=== PATIENT | female | born 1940 | race Caucasian/White ===

== ENCOUNTER → 2016-09-01 | Outpatient (REF) | payer MEDICARE, OTHER ==
[~2016-09-01] MED LIST: MULTIPLE PO; MULTIVIT PO; amlodipine PO; calcium PO; cephalexin PO; levoxyl PO; lisinopril PO; tums PO; tylenol PM PO; vicodin PO; vitamin D PO
[2016-09-01 11:47] LABS: CREATININE FOR GFR 1.08 MG/DL (0.55-1.02); GLOMERULAR FILTRATION RATE 52.7 (>39)
== END ==
LOC: M LABDRAW1 11:13
PROVIDERS: ATTEND Physician Assistant
DX: M65.811 Other synovitis and tenosynovitis, right shoulder (principal)

== ENCOUNTER → 2016-09-15 | Outpatient (CLI) | payer MEDICARE, OTHER ==
--- NOTE | 2016-09-15 13:07 | REPMRS ---
Patient History The patient states she has not had a clinical breast exam in over a year. Patient is postmenopausal. Family history of colorectal cancer in niece at age 45 and ovarian cancer in niece at age 42. Took hormonal contraceptives for 10 months. Digital Woman Screen Mammo: September 15, 2016 - Exam #: [id number] Bilateral CC and MLO view(s) were taken. Technologist: Jenae Boswell Technologist Prior study comparison: December 13, 2014, digital woman screen mammo performed at [facility]. July 18, 2013, bilateral bilat screen digital mammo, performed at [facility] ([facility]). January 06, 2012, bilateral bilat screen digital mammo, performed at [facility] ([facility]). FINDINGS: There are scattered fibroglandular densities. There is a moderate amount of residual fibroglandular tissue which is fairly symmetric. There is no interval development of dominant mass, architectural distortion, or clustered microcalcification typical of malignancy. There has been no change in the appearance of the mammogram from the prior studies. ASSESSMENT: BI-RADS/ACR category 1 mammogram. Negative. Recommendation Routine screening mammogram of both breasts in 1 year (for women over age 40). This mammogram was interpreted with the aid of an FDA-approved computer-aided dectection system. Electronically Signed By: Elliot Murguia MD 09/15/16 [id number]
== END ==
LOC: M WHC 11:03
PROVIDERS: ATTEND Family Medicine
DX: Z12.31 Encounter for screening mammogram for malignant neoplasm of breast (principal); Z78.0 Asymptomatic menopausal state; Z92.0 Personal history of contraception; Z85.43 Personal history of malignant neoplasm of ovary

== ENCOUNTER → 2016-09-25 | Outpatient (REF) | payer MEDICARE, OTHER ==
[~2016-09-25] MED LIST changes: +ALBU17IN INH; +FISH5CAP PO; +NASA0.0517; +VITA100L PO
[2016-09-25 11:13] LABS: ALBUMIN 3.5 GM/DL (3.2-5.2); ALBUMIN/GLOBULIN RATIO 1.13 (1.00-1.93); ALKALINE PHOSPHATASE 91 U/L (45-117); ALT/SGPT 17 U/L (12-78); ANION GAP 7 MEQ/L (8-16); AST/SGOT 10 U/L (15-37); BILIRUBIN,TOTAL 0.5 MG/DL (0.2-1.0); BLOOD UREA NITROGEN 20 MG/DL (7-18); CARBON DIOXIDE LEVEL 29 MEQ/L (21-32); CHLORIDE LEVEL 107 MEQ/L (98-107); CHOLESTEROL LEVEL 254 MG/DL (<200); CREATININE FOR GFR 0.91 MG/DL (0.55-1.02); GLOMERULAR FILTRATION RATE > 60.0 (>39); GLUCOSE, FASTING 91 MG/DL (83-110); POTASSIUM SERUM 4.1 MEQ/L (3.5-5.1); SODIUM LEVEL 143 MEQ/L (136-145); TOTAL PROTEIN 6.6 GM/DL (6.4-8.2); TRIGLYCERIDES LEVEL 92 MG/DL (<150)
== END ==
LOC: M LABDRAW1 08:16
PROVIDERS: ATTEND Family Medicine
DX: E78.2 Mixed hyperlipidemia (principal); E03.9 Hypothyroidism, unspecified

== ENCOUNTER 2016-10-08 17:06 | Emergency (ER) | payer MEDICARE, OTHER ==
[~2016-10-08] VITALS: Ht 154.9 cm; Wt 59.1 kg
[~2016-10-08 17:06] MED LIST changes: -ALBU17IN INH; -FISH5CAP PO; -NASA0.0517; -VITA100L PO
[2016-10-08] MEDS ORDERED: TETANUS/DIPHTHERIA TOX ADSORB ADULT 0.5ML SYR/VIAL (90714) IM ONE (17:30)
[2016-10-08] MEDS ORDERED: VITA100L PO (17:39)
[2016-10-08] MEDS ORDERED: FISH5CAP PO (17:39)
[2016-10-08] MEDS ORDERED: NASA0.0517 (17:39)
[2016-10-08] MEDS ORDERED: ALBU17IN INH (17:39)
[2016-10-08 18:30] VITALS: BP 151/87
--- NOTE | 2016-10-08 18:58 | REP ---
MAXILLOFACIAL CT WITHOUT CONTRAST: HISTORY: Trauma. Minimal mucosal thickening is present in the right ethmoid sinus. The remaining sinuses are clear. The ostiomeatal units are patent. The middle and inferior nasal turbinates are partially paradoxical. There is timmy bullosa of the right middle nasal turbinate. There is mild deviation of the nasal septum to the left. A spur is present arising from the left side of the nasal septum. The spur abuts the left inferior nasal turbinate. The cribriform plate, medial zimmer of the orbits and optic canals are intact. The carotid canals form a segment of the posterolateral zimmer of the sphenoid sinus. Calcification is present in the left tonsil. This is secondary to previous inflammatory disease. There is no fracture. IMPRESSION: Sinus mucosal thickening as described above. Signed by Juan Antonio Ruelas MD 10/09/2016 08:23 A
--- NOTE | 2016-10-08 19:05 | REP ---
CT CERVICAL SPINE WITHOUT CONTRAST: HISTORY: Trauma. There is no acute fracture or subluxation. Disc bulges with associated osteophyte formation are present at the C4-5 through C6-7 levels. There is minimal narrowing of the spinal canal. Uncinate process and/or facet hypertrophy are present at the C2-3 through C7-T1 levels. These findings produce minimal to moderate narrowing of the neural foramina. The C4-5 through C6-7 intervertebral discs are decreased in height consistent with disc degeneration. Calcification is present in the left tonsil. This is secondary to previous inflammatory disease. IMPRESSION: 1. There is no acute fracture or subluxation. 2. There is cervical spondylosis at the C2-3 through C7-T1 levels. Signed by Juan Antonio Ruelas MD 10/09/2016 08:24 A
--- NOTE | 2016-10-08 19:07 | REP ---
RIGHT HAND, FOUR VIEWS: HISTORY: Trauma. There is a nondisplaced fracture of the base of the 5th metacarpal. There is narrowing of the carpal metacarpal, intermediate and distal interphalangeal joint spaces. The greater multangular is not seen. Osteophytes are present on the base of the first metacarpal and at the distal interphalangeal joints of the first through 5th digits. The bony structure is osteopenic. IMPRESSION: Fracture of the base of the 5th metacarpal. Signed by Juan Antonio Ruelas MD 10/09/2016 08:24 A
--- NOTE | 2016-10-08 19:31 | REP ---
CT HEAD WITHOUT CONTRAST: HISTORY: Trauma. Areas of decreased attentuation are present in the periventricular white matter. This represents small vessel ischemic disease. There is no intraparenchymal hemorrhage, mass or midline shift. The ventricular system and cortical sulci are dilated consistent with minimal volume loss. There is no extracerebral collection. There is no fracture. The visualized sinuses are clear. IMPRESSION 1. Small vessel ischemic disease. 2. Minimal volume loss. Signed by Juan Antonio Ruelas MD 10/09/2016 08:23 A
== END 2016-10-08 20:04 | disposition home or self-care (01) ==
LOC: M ED 17:06
DX: S00.81XA Abrasion of other part of head, initial encounter (principal); S62.306A Unspecified fracture of fifth metacarpal bone, right hand, initial encounter for closed fracture; I10 Essential (primary) hypertension; M06.9 Rheumatoid arthritis, unspecified; E78.5 Hyperlipidemia, unspecified; W18.30XA Fall on same level, unspecified, initial encounter; Y92.410 Unspecified street and highway as the place of occurrence of the external cause; Y99.9 Unspecified external cause status; Y93.9 Activity, unspecified; Z23 Encounter for immunization; Z79.899 Other long term (current) drug therapy; Z88.0 Allergy status to penicillin; Z88.1 Allergy status to other antibiotic agents; Z88.6 Allergy status to analgesic agent; Z88.8 Allergy status to other drugs, medicaments and biological substances

== ENCOUNTER 2017-03-09 08:51 | Inpatient (IN) | payer MEDICARE, OTHER ==
[~2017-03-09] VITALS: Ht 154.9 cm; Wt 61.7 kg
[~2017-03-09 08:51] MED LIST changes: +ALBU17IN INH; +FISH5CAP PO; +NASA0.0517; +VITA100L PO
[2017-03-09] MEDS ORDERED: SULF1TAB72 PO (09:09)
[2017-03-09] MEDS ORDERED: ONDANSETRON 4MG/2ML VIAL (J2405) IV ONE (09:30)
[2017-03-09 09:35] LABS: BASO # 0.1 10^3/uL (0.0-0.2); BASO % 0.9 % (0.0-1.0); EOS # 0.1 10^3/uL (0.0-0.50); EOS % 0.7 % (0.0-3.0); IMMATURE GRANULOCYTE % 0.4 % (0-0); LYMPH % 25.3 % (24.0-44.0); MEAN CORPUSCULAR HEMOGLOBIN 29.5 pg (27.0-33.0); MEAN CORPUSCULAR VOLUME 89.5 fl (80.0-96.0); MONO # 0.6 10^3/uL (0.0-0.8); MONO % 7.4 % (0.0-5.0); NEUTROPHILS # 5.2 10^3/uL (1.8-7.7); NEUTROPHILS % 65.3 % (36.0-66.0); PLATELET COUNT, AUTOMATED 366 10^3/uL (150-450); RED CELL DISTRIBUTION WIDTH 13.4 % (11.5-14.5)
--- NOTE | 2017-03-09 09:54 | REP ---
PORTABLE CHEST: AP portable view of the chest is performed. There is mild bibasilar fibroatelectatic change without evidence of acute infiltrate. The heart is normal in size. Mediastinal silhouette is unchanged. IMPRESSION: Mildly chronic findings without evidence of acute infiltrate. Signed by Milan Tompkins MD 03/09/2017 05:22 P
[2017-03-09 10:08] LABS: CALCIUM LEVEL 9.2 MG/DL (8.8-10.2); CREATININE FOR GFR 1.86 MG/DL (0.55-1.02); FREE T4 1.13 NG/DL (0.76-1.46); MAGNESIUM LEVEL 2.2 MG/DL (1.8-2.4); POTASSIUM SERUM 4.7 MEQ/L (3.5-5.1)
--- NOTE | 2017-03-09 10:33 | REP ---
CT BRAIN WITHOUT IV CONTRAST: CT brain is performed without IV contrast. COMPARISON: 10/08/2016 There is mild atrophy. There is no midline shift. There are bilateral basal ganglia calcifications again seen, unchanged. There is no acute hemorrhage or extra-axial fluid collection. There is no evidence of mass or mass effect. Visualized paranasal sinuses and mastoid air cells are clear. IMPRESSION: No evidence of acute intracranial hemorrhage or mass. Bilateral basal ganglia calcifications. Mild atrophy. No change since prior study of 10/08/2016. Signed by Milan Tompkins MD 03/09/2017 05:23 P
[2017-03-09 11:28] LABS: ALBUMIN 4.1 GM/DL (3.2-5.2); ALBUMIN/GLOBULIN RATIO 1.32 (1.00-1.93); BILIRUBIN,DIRECT 0.1 MG/DL (0.0-0.2); BILIRUBIN,TOTAL 0.4 MG/DL (0.2-1.0); TOTAL PROTEIN 7.2 GM/DL (6.4-8.2)
[2017-03-09] MEDS ORDERED: PANTOPRAZOLE 40MG INJ (PROTONIX) (C9113) IV ONE (14:30)
[2017-03-09] MEDS ORDERED: ONDANSETRON 4MG/2ML VIAL (J2405) IV PRN (16:30)
[2017-03-09] MEDS ORDERED: VITA100066 PO (16:44)
[2017-03-09] MEDS ORDERED: LEVO75TA34 PO (16:44)
[2017-03-09] MEDS ORDERED: AMLO5TAB2 PO (16:44)
[2017-03-09] MEDS ORDERED: CALC600T31 PO (16:44)
[2017-03-09] MEDS ORDERED: BACT800T5 PO (16:44)
[2017-03-09] MEDS ORDERED: LISI10TA4 PO (16:44)
[2017-03-09] MEDS ORDERED: B-1210009 PO (16:44)
[2017-03-09] MEDS ORDERED: FLON1SPR (16:44)
[2017-03-09 17:30] VITALS: BP 113/59
[2017-03-09 18:01] VITALS: BP 147/73
[2017-03-09 18:04] VITALS: BP_SYST 116; BP_SYST 119; BP_DIAS 58; BP_DIAS 62
[2017-03-09] MEDS: NS 1,000 ML IV SCH (18:25)
--- NOTE | 2017-03-09 18:41 | ECGEPIP ---
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
--- NOTE | 2017-03-09 18:41 | ECGEPIP ---
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
--- NOTE | 2017-03-09 18:46 | ECGEPIP ---
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
[2017-03-09] MEDS ORDERED: ALBUTEROL 90 MCG/ACT 8GM HFA INHALER INH PRN (19:30)
[2017-03-09] MEDS ORDERED: FLUTICASONE PROP 0.05% NASAL SPRAY 16 GM (FLONASE) PRN (19:30)
--- NOTE | 2017-03-09 19:33 | HPEPDOC ---
[facility] Medical History & Physical History and Physical Primary care provider: Dr. Sousa Date of Admission: 03/09/2017 Attending: Dr. Sylvia Ayala CHIEF COMPLAINT: Near syncopal episode HISTORY OF PRESENT ILLNESS: Ms. Luna is a 77-year-old female who presents to the emergency department because she had an episode of loss of vision. This was only momentary in nature, however it did scare her therefore she presented to emergency department for further evaluation. She states that she had an episode of facial cellulitis approximately 2 weeks ago for which she was given 10 days of Bactrim 1 tablet twice a day from urgent care. At the end of 10 days she felt that this was not completely resolved, therefore she called her primary care provider who because of her many allergies prescribed her Bactrim again, although this time it was 2 tablets twice a day (doubled the dose) and she has been on this increased dose for the past 4 days. She reports that she has been nauseous for the past 3 days, and she is been eating less and less over the past week. Yesterday she only ate for pieces of toast all day, today she has had nothing to eat. She has however been taking all of her medications appropriately, including her antihypertensives. When she went to take her Synthroid first thing this morning when she tilted her head back she had a sudden loss of vision. This was only momentary and then her vision came back. She was standing in the kitchen, she did not lose consciousness, she did not fall. After this however, she did feel extremely weak, and began to sweat, and she felt lightheaded therefore she sat down. All of these symptoms combined were enough to scare her, therefore she called her son and was brought to the emergency department. ALLERGIES: Acetaminophen Ciprofloxacin Erythromycin Ibuprofen Naproxen Penicillins Penicillin cross reactors Quinolones Tetracycline CODE STATUS: Full code PAST MEDICAL HISTORY: Hypertension Hypothyroidism Arthritis Seasonal allergies PAST SURGICAL HISTORY: Appendectomy Ovarian cystectomy Bilateral carpal tunnel surgery Back surgery Surgical procedure for bladder prolapse and hysterectomy SOCIAL HISTORY: She lives at home alone, she does have a Vietnamese Esposito. She quit smoking approximately 10 years ago. She does not drink alcohol. She does not use recreational drugs. FAMILY HISTORY: Mother had valvular problems due to Fen/Phen use. Mother also had skin cancer. She had a brother who had an VT in his 40s, however he heavily smokes and drinks. REVIEW OF SYSTEMS: Constitutional: Patient denies fevers, chills, night sweats, recent weight gain/ loss. HEENT: She did have an episode of transient visual loss as described in the HPI. Denies postnasal drip, epistaxis, sore throat, difficulty chewing or swallowing food. She is uncertain as to whether the cellulitis of her face has resolved, and points to a bump on her nose indicating that this is what is still bothering her. Cardiovascular: Patient denies chest discomfort/pain, palpitations, exertional dyspnea, orthopnea, edema of the extremities, claudication. Respiratory: Patient denies dyspnea, wheezing, cough, hemoptysis, sputum production. Gastrointestinal: She has been nauseated for the past 3 days or so. She denies vomiting. She did have one episode of diarrhea yesterday, however she had been constipated for the previous few days and took one Dulcolax which is what caused her diarrhea. She has not had a bowel movement today PHYSICAL EXAMINATION: General: Awake, alert, oriented. She is in no acute distress. HEENT: Head normocephalic atraumatic, conjunctiva are pink, sclera are nonicteric. Hearing is grossly intact to conversation. I do not see any evidence of cellulitis in her face, the bumps that she indicates appears to be part of her nasal bridge, I suspect that she may have fractured her nasal bones when she fell approximately 6 months ago. Respiratory: Clear to auscultation bilaterally with no wheezes, rales, or rhonchi. Cardiovascular: Regular rate and rhythm, with no rubs, gallops, or murmur. Abdomen: Soft, nontender, nondistended, no hepatosplenomegaly appreciated. Bowel sounds present. Extremities: 2+ pulses in the radial and dorsalis pedis bilaterally. No evidence of clubbing or cyanosis. ELECTROCARDIOGRAM: Sinus rhythm. 3 EKGs were obtained in the emergency department, and there is no interval change since 2011 IMAGING: CT of the head and chest x-ray were unremarkable ASSESSMENT: 1. Acute kidney injury 2. Prerenal azotemia 3. Recent antibiotic use, Bactrim 4. Hypertension 5. Hypothyroidism 6. DVT prophylaxis with teds PLAN: Her nausea, upset stomach, poor oral intake, acute kidney injury, and subsequent hypovolemia are all likely secondary to her prolonged use of Bactrim , especially at the higher dose. We will stop her antibiotics at this time given that she is afebrile, does not have leukocytosis, and there is no residual evidence of cellulitis in her face. We will also start IV fluids. She is already been on telemetry since this morning, therefore tomorrow morning will conclude approximately 24 hours of being on telemetry (up to this point she has showed no evidence of arrhythmias), and she may be reevaluated at that time. I suspect that if her acute kidney injury resolves, and she is feeling better, she may be a candidate for going home. My preceptor for this patient encounter was physically present in the building during the encounter and was fully available. As needed, all aspects of the patient interview, examination, medical decision making process, and medical care plan development were reviewed and approved by the preceptor. Preceptor is aware and concurs with the plan as stated in the body of this note and will attest to such by his/her cosignature. Vital Signs Vital Signs Date Time Temp Pulse Resp B/P (MAP) Pulse Ox O2 Delivery O2 Flow Rate FiO2 03/09/17 18:04 101 116/62 (80) 106 119/58 (78) 03/09/17 18:01 86 96 Room Air 03/09/17 17:32 97.9 Laboratory Data Labs 24H Laboratory Tests 2 03/09/17 09:27: Immature Granulocyte % (Auto) 0.4H, White Blood Count 8.0, Red Blood Count 4.74 , Hemoglobin 14.0, Hematocrit 42.4, Mean Corpuscular Volume 89.5, Mean Corpuscular Hemoglobin 29.5, Mean Corpuscular Hemoglobin Concent 33.0, Red Cell Distribution Width 13.4, Platelet Count 366, Neutrophils (%) (Auto) 65.3, Lymphocytes (%) (Auto) 25.3, Monocytes (%) (Auto) 7.4H, Eosinophils (%) (Auto) 0.7, Basophils (%) (Auto) 0.9, Neutrophils # (Auto) 5.2, Lymphocytes # (Auto) 2.0, Monocytes # (Auto) 0.6, Eosinophils # (Auto) 0.1, Basophils # (Auto) 0.1, Immature Granulocyte # (Auto) 0.0, Nucleated Red Blood Cells % (auto) 0.0, Anion Gap 11, Glomerular Filtration Rate 28.0L, Blood Urea Nitrogen 32H, Creatinine 1.86H, Sodium Level 134L, Potassium Level 4.7, Chloride Level 99, Carbon Dioxide Level 24, Calcium Level 9.2, Magnesium Level 2.2, Total Creatine Kinase 104, Creatine Kinase MB 2.9, Creatine Kinase MB Relative Index 2.78, Troponin I < 0.02, Thyroid Stimulating Hormone (TSH) 1.830, Free Thyroxine 1.13 03/09/17 09:33: Bedside Glucose (Misc Panel) 87 03/09/17 11:00: Aspartate Amino Transf (AST/SGOT) 18, Alanine Aminotransferase (ALT/SGPT) 23, Alkaline Phosphatase 79, Total Bilirubin 0.4, Direct Bilirubin 0.1, Total Protein 7.2, Albumin 4.1, Albumin/Globulin Ratio 1.32, Lipase 171 03/09/17 11:37: Total Creatine Kinase 101, Creatine Kinase MB 2.7, Creatine Kinase MB Relative Index 2.67, Troponin I < 0.02 03/09/17 15:17: Total Creatine Kinase 102, Creatine Kinase MB 2.8, Creatine Kinase MB Relative Index 2.74, Troponin I < 0.02 CBC/BMP Laboratory Tests 03/09/17 09:27 Red Blood Count 4.74, Mean Corpuscular Volume 89.5, Mean Corpuscular Hemoglobin 29.5, Mean Corpuscular Hemoglobin Concent 33.0, Red Cell Distribution Width 13.4 , Neutrophils (%) (Auto) 65.3, Lymphocytes (%) (Auto) 25.3, Monocytes (%) (Auto ) 7.4 H, Eosinophils (%) (Auto) 0.7, Basophils (%) (Auto) 0.9, Neutrophils # ( Auto) 5.2, Lymphocytes # (Auto) 2.0, Monocytes # (Auto) 0.6, Eosinophils # (Auto ) 0.1, Basophils # (Auto) 0.1, Calcium Level 9.2 Microbiology Microbiology 03/09/17 Influenza Virus Type A Antigen - Final, Complete 03/09/17 Influenza Virus Type B Antigen - Final, Complete Home Medications Scheduled Amlodipine Besylate (Amlodipine Besylate) 5 Mg Tab, 5 MG PO QHS Calcium (Calcium) 600 Mg Tab, 600 MG PO DAILY Cholecalciferol (Vitamin D) 1,000 Unit Tab, 1,000 UNIT PO DAILY Cyanocobalamin (B-12) 1,000 Mcg Tab, 1,000 MCG PO DAILY Levothyroxine Sodium (Levoxyl) 75 Mcg Tab, 75 MCG PO DAILY Lisinopril (Lisinopril) 10 Mg Tab, 10 MG PO QHS Trimethoprim/Sulfamethoxazole (Bactrim Ds 800-160 mg) 1 Tab Tab, 1 TAB PO BID FILLED 03/03/17 FOR 10 DAYS Scheduled PRN (Flonase Allergy Relief) 50 Mcg/Act Spr, 2 SPRAYS NA DAILY PRN for ALLERGIES Albuterol Sulfate (Ventolin Hfa) 200 Puff/8 Gm Aers, 2 PUFF INH Q4H PRN for SHORTNESS OF BREATH Allergies Coded Allergies: Ciprofloxacin (Verified Allergy, Intermediate, hives, 03/09/17) Erythromycin (Verified Allergy, Intermediate, HIVES, 06/24/12) Ibuprofen (Verified Allergy, Intermediate, HIVES, 06/24/12) Penicillins (Verified Allergy, Intermediate, HIVES, 06/24/12) Penicillins Cross Reactors (Verified Allergy, Intermediate, HIVES, 06/24/12) Tetracycline (Verified Allergy, Intermediate, HIVES, 06/24/12) Acetaminophen (Verified Allergy, Mild, hives, 10/08/16) Naproxen (Verified Allergy, Mild, hives, 10/08/16) Quinolones (Verified Adverse Reaction, Intermediate, MUSCLE PAIN, 06/24/12) HIWOT GARZA DO Mar 09, 2017 19:33
[2017-03-09 20:00] VITALS: BP 118/55
[2017-03-09] MEDS: amLODIPine 5 MG TAB PO SCH (20:30)
[2017-03-09] MEDS: HEPARIN SOD (PORCINE) 5000 UNITS/ML VIAL SC SCH (20:31)
[2017-03-09] MEDS ORDERED: LISINOPRIL 10 MG TAB PO SCH (21:00)
[2017-03-09 23:59] VITALS: BP 95/67
[2017-03-10] VITALS (8 sets, daily range): BP systolic 108–140; BP diastolic 56–80
[2017-03-10] MEDS: NS 1,000 ML IV SCH ×3 (03:42→21:05)
[2017-03-10 05:35] LABS: MEAN CORPUSCULAR HEMOGLOBIN 29.7 pg (27.0-33.0); MEAN CORPUSCULAR HGB CONC 33.4 g/dl (32.0-36.5); MEAN CORPUSCULAR VOLUME 88.9 fl (80.0-96.0); PLATELET COUNT, AUTOMATED 320 10^3/uL (150-450); RED CELL DISTRIBUTION WIDTH 13.3 % (11.5-14.5); WHITE BLOOD COUNT 5.8 10^3/uL (4.0-10.0)
[2017-03-10 05:48] LABS: CALCIUM LEVEL 8.1 MG/DL (8.8-10.2); CREATININE FOR GFR 1.5 MG/DL (0.55-1.02); GLOMERULAR FILTRATION RATE 35.9 (>39)
[2017-03-10 05:51] LABS: POTASSIUM SERUM 5.5 MEQ/L (3.5-5.1)
[2017-03-10] MEDS: LEVOTHYROXINE 75MCG TABLET (0.075MG) PO SCH (06:00)
[2017-03-10] MEDS: PANTOPRAZOLE 40MG TAB (PROTONIX) PO SCH (09:02)
[2017-03-10] MEDS: CYANOCOBALAMIN 500 MCG TAB PO SCH (09:02)
[2017-03-10] MEDS: HEPARIN SOD (PORCINE) 5000 UNITS/ML VIAL SC SCH ×2 (09:02→21:06)
[2017-03-10] MEDS: VITAMIN D 1,000 INTERNATIONAL UNITS TABLET PO SCH (09:02)
[2017-03-10 12:52] LABS: CALCIUM LEVEL 8.6 MG/DL (8.8-10.2); CREATININE FOR GFR 1.45 MG/DL (0.55-1.02); GLOMERULAR FILTRATION RATE 37.4 (>39); POTASSIUM SERUM 4.5 MEQ/L (3.5-5.1)
--- NOTE | 2017-03-10 19:48 | IPNPDOC ---
Text Note Date of Service The patient was seen on 03/10/17. NOTE Hospitalist Progress Note Subjective: The patient reports that she is feeling significantly better this morning, however her orthostatic vital signs still positive, and she does get a little lightheaded if she moves too quickly. Otherwise, she was able to eat her breakfast, and has no other complaints. The remainder of her review of systems is negative. Objective: General: Awake, alert, oriented 3. She is sitting upright in the bed. She is not in any acute distress. HEENT: Head normocephalic, atraumatic, sclera are nonicteric. Hearing is grossly intact to conversation. Respiratory: Clear to auscultation bilaterally with no wheezes, rales, or rhonchi. Cardiovascular: Regular rate and rhythm, with no rubs, gallops, or murmur. Abdomen: Soft, nontender, nondistended, no hepatosplenomegaly appreciated. Bowel sounds present. Extremities: 2+ pulses in the radial and dorsalis pedis bilaterally. No evidence of clubbing or cyanosis. Assessment: 1. Acute kidney injury 2. Prerenal azotemia 3. Recent antibiotic use, Bactrim 4. Hypertension 5. Hypothyroidism 6. DVT prophylaxis with teds Plan: She has now begun to put out more urine this morning, this was not recorded in her I's & O's because she missed a hat. Her creatinine has not improved as much as one would hope, therefore we will continue to rehydrate her and keep her here one additional day just to ensure that her renal function is sufficiently improved prior to discharge. My preceptor for this patient encounter was physically present in the building during the encounter and was fully available. As needed, all aspects of the patient interview, examination, medical decision making process, and medical care plan development were reviewed and approved by the preceptor. Preceptor is aware and concurs with the plan as stated in the body of this note and will attest to such by his/her cosignature. Attending Note: I have independently examined this patient and all aspects of the exam and treatment decisions have been discussed with the resident. A member of the hospitalist staff will continue to follow this patient through discharge. VS,Fishbone, I+O VS, Fishbone, I+O Laboratory Tests 03/10/17 05:19 Red Blood Count 4.24, Mean Corpuscular Volume 88.9, Mean Corpuscular Hemoglobin 29.7, Mean Corpuscular Hemoglobin Concent 33.4, Red Cell Distribution Width 13.3 , Calcium Level 8.1 L 03/10/17 12:06 Calcium Level 8.6 L Vital Signs Date Time Temp Pulse Resp B/P (MAP) Pulse Ox O2 Delivery O2 Flow Rate FiO2 03/10/17 16:00 75 130/69 (89) 76 140/67 (91) 70 125/65 (85) 03/10/17 16:00 99.1 18 96 Room Air I&O- Last 24 Hours up to 6 AM 03/10/17 06:00 Intake Total 1420 ml Output Total 500 ml Balance 920 ml HIWOT GARZA DO Mar 10, 2017 19:48 THIAGO MCQUEEN Mar 13, 2017 13:45
[2017-03-10] MEDS: amLODIPine 5 MG TAB PO SCH (21:00)
[2017-03-11 04:00] VITALS: BP_SYST 121; BP_SYST 131; BP_DIAS 59; BP_DIAS 61; BP_DIAS 68
[2017-03-11 05:26] LABS: MEAN CORPUSCULAR HEMOGLOBIN 29.4 pg (27.0-33.0); MEAN CORPUSCULAR HGB CONC 32.4 g/dl (32.0-36.5); MEAN CORPUSCULAR VOLUME 90.8 fl (80.0-96.0); PLATELET COUNT, AUTOMATED 291 10^3/uL (150-450); RED CELL DISTRIBUTION WIDTH 13.2 % (11.5-14.5); WHITE BLOOD COUNT 6.5 10^3/uL (4.0-10.0)
[2017-03-11] MEDS: LEVOTHYROXINE 75MCG TABLET (0.075MG) PO SCH (05:39)
[2017-03-11 05:46] LABS: ANION GAP 7 MEQ/L (8-16); BLOOD UREA NITROGEN 22 MG/DL (7-18); CALCIUM LEVEL 7.9 MG/DL (8.8-10.2); CARBON DIOXIDE LEVEL 24 MEQ/L (21-32); CHLORIDE LEVEL 113 MEQ/L (98-107); CREATININE FOR GFR 0.94 MG/DL (0.55-1.02); GLOMERULAR FILTRATION RATE > 60.0 (>39); GLUCOSE, FASTING 92 MG/DL (83-110); POTASSIUM SERUM 4.7 MEQ/L (3.5-5.1); SODIUM LEVEL 144 MEQ/L (136-145)
[2017-03-11] MEDS: NS 1,000 ML IV SCH (06:50)
[2017-03-11 08:04] VITALS: BP 139/64
[2017-03-11] MEDS: PANTOPRAZOLE 40MG TAB (PROTONIX) PO SCH (08:41)
[2017-03-11] MEDS: CYANOCOBALAMIN 500 MCG TAB PO SCH (08:41)
[2017-03-11] MEDS: VITAMIN D 1,000 INTERNATIONAL UNITS TABLET PO SCH (08:41)
[2017-03-11] MEDS: HEPARIN SOD (PORCINE) 5000 UNITS/ML VIAL SC SCH (08:42)
--- NOTE | 2017-03-11 09:40 | DS.PDOC ---
Discharge Summary General Date of Admission 03/09/2017 Date of Discharge 03/11/2017 Discharge Summary PRIMARY CARE PHYSICIAN: Dr. Sousa ATTENDING AT TIME OF DISCHARGE: Dr. Mcqueen DISCHARGE DIAGNOS(E)S: 1. Acute kidney injury 2. Prerenal azotemia 3. Recent antibiotic use, Bactrim 4. Hypertension 5. Hypothyroidism HPI & HOSPITAL COURSE: Ms. Luna is a 77-year-old female who presented to the emergency department after having what could be described as a near syncopal episode. She had been taking Bactrim for almost 2 weeks for what sounds like a facial cellulitis, she had been experiencing nausea, decreased oral intake, dehydration, and all of this combined cause acute kidney injury. Her only treatment consisted of discontinuing the Bactrim and starting her on IV normal saline. Today the day of discharge she is feeling significantly better, creatinine has returned to normal, and she does appear to be stable for discharge at this time. PHYSICAL EXAMINATION ON DISCHARGE: GENERAL: Awake, alert, oriented. She is in no acute distress. She is looking forward to going home. CARDIOVASCULAR EXAMINATION: Regular rate and rhythm, with no rubs, gallops, or murmur. RESPIRATORY EXAMINATION: Clear to auscultation bilaterally with no wheezes, rales, or rhonchi. ABDOMINAL EXAMINATION: Soft, nontender, nondistended. Bowel sounds present. EXTREMITIES: No clubbing or edema noted. 2+ pulses in the radial bilaterally. DISPOSITION: Home DISCHARGE INSTRUCTIONS: Follow-up with primary care provider Dr. Sousa within the next 7-10 days. Activity as tolerated. Diet as tolerated. If symptoms return, or if you experience worsening of your symptoms, please call your doctor or return to the emergency department. DISCHARGE MEDICATIONS: Antibiotics were stopped, otherwise no change in her home medications ITEMS THAT NEED OUTPATIENT FOLLOWUP: None My preceptor for this patient encounter was physically present in the building during the encounter and was fully available. As needed, all aspects of the patient interview, examination, medical decision making process, and medical care plan development were reviewed and approved by the preceptor. Preceptor is aware and concurs with the plan as stated in the body of this note and will attest to such by his/her cosignature. Attending Note: I have independently examined this patient and all aspects of the exam and treatment decisions have been discussed with the resident. A member of the hospitalist staff will continue to follow this patient through discharge. Vital Signs/I&Os Vital Signs Date Time Temp Pulse Resp B/P (MAP) Pulse Ox O2 Delivery O2 Flow Rate FiO2 03/11/17 08:04 98.1 76 19 139/64 (89) 96 Room Air I&O- Last 24 Hours up to 6 AM 03/11/17 06:00 Intake Total 3000 ml Output Total 2445 ml Balance 555 ml Laboratory Data Labs 24H Laboratory Tests 2 03/10/17 12:06: Anion Gap 6L, Glomerular Filtration Rate 37.4L, Blood Urea Nitrogen 27H, Creatinine 1.45H, Sodium Level 139, Potassium Level 4.5, Chloride Level 107, Carbon Dioxide Level 26, Calcium Level 8.6L 03/11/17 05:19: Anion Gap 7L, Glomerular Filtration Rate > 60.0, Blood Urea Nitrogen 22H, Creatinine 0.94, Sodium Level 144, Potassium Level 4.7, Chloride Level 113H, Carbon Dioxide Level 24, Calcium Level 7.9L, Nucleated Red Blood Cells % (auto) 0.0 CBC/BMP Laboratory Tests 03/10/17 12:06 Calcium Level 8.6 L 03/11/17 05:19 Calcium Level 7.9 L, Red Blood Count 4.11, Mean Corpuscular Volume 90.8, Mean Corpuscular Hemoglobin 29.4, Mean Corpuscular Hemoglobin Concent 32.4, Red Cell Distribution Width 13.2 Microbiology Microbiology 03/09/17 Influenza Virus Type A Antigen - Final, Complete 03/09/17 Influenza Virus Type B Antigen - Final, Complete Discharge Medications Scheduled Amlodipine Besylate (Amlodipine Besylate) 5 Mg Tab, 5 MG PO QHS, (Reported) Calcium (Calcium) 600 Mg Tab, 600 MG PO DAILY, (Reported) Cholecalciferol (Vitamin D) 1,000 Unit Tab, 1,000 UNIT PO DAILY, (Reported) Cyanocobalamin (B-12) 1,000 Mcg Tab, 1,000 MCG PO DAILY, (Reported) Levothyroxine Sodium (Levoxyl) 75 Mcg Tab, 75 MCG PO DAILY, (Reported) Lisinopril (Lisinopril) 10 Mg Tab, 10 MG PO QHS, (Reported) Scheduled PRN (Flonase Allergy Relief) 50 Mcg/Act Spr, 2 SPRAYS NA DAILY PRN for ALLERGIES, ( Reported) Albuterol Sulfate (Ventolin Hfa) 200 Puff/8 Gm Aers, 2 PUFF INH Q4H PRN for SHORTNESS OF BREATH, (Reported) Allergies Coded Allergies: Ciprofloxacin (Verified Allergy, Intermediate, hives, 03/09/17) Erythromycin (Verified Allergy, Intermediate, HIVES, 06/24/12) Ibuprofen (Verified Allergy, Intermediate, HIVES, 06/24/12) Penicillins (Verified Allergy, Intermediate, HIVES, 06/24/12) Penicillins Cross Reactors (Verified Allergy, Intermediate, HIVES, 06/24/12) Tetracycline (Verified Allergy, Intermediate, HIVES, 06/24/12) Acetaminophen (Verified Allergy, Mild, hives, 10/08/16) Naproxen (Verified Allergy, Mild, hives, 10/08/16) Quinolones (Verified Adverse Reaction, Intermediate, MUSCLE PAIN, 06/24/12) HIWOT GARZA DO Mar 11, 2017 09:40 THIAGO MCQUEEN DO Mar 13, 2017 13:46
== END 2017-03-11 10:00 | disposition home or self-care (01) | DRG 684 ==
LOC: M ED 08:51 → M ED INP 16:26 → M PCU 18:06
PROVIDERS: ADMIT Internal Medicine Nephrology; ATTEND Hospitalist
DX: N17.9 Acute kidney failure, unspecified (principal); I10 Essential (primary) hypertension; J30.2 Other seasonal allergic rhinitis; T37.0X5A Adverse effect of sulfonamides, initial encounter; E03.9 Hypothyroidism, unspecified; M19.90 Unspecified osteoarthritis, unspecified site; Z88.0 Allergy status to penicillin; Z88.1 Allergy status to other antibiotic agents; Z88.6 Allergy status to analgesic agent; Z87.891 Personal history of nicotine dependence; R11.0 Nausea

== ENCOUNTER → 2017-03-19 | Outpatient (REF) | payer MEDICARE, OTHER ==
[2017-03-19 12:18] LABS: ANION GAP 7 MEQ/L (8-16); BLOOD UREA NITROGEN 15 MG/DL (7-18); CALCIUM LEVEL 8.9 MG/DL (8.8-10.2); CARBON DIOXIDE LEVEL 29 MEQ/L (21-32); CHLORIDE LEVEL 106 MEQ/L (98-107); CREATININE FOR GFR 0.87 MG/DL (0.55-1.02); GLOMERULAR FILTRATION RATE > 60.0 (>39); GLUCOSE, FASTING 95 MG/DL (83-110); POTASSIUM SERUM 4.1 MEQ/L (3.5-5.1); SODIUM LEVEL 142 MEQ/L (136-145)
== END ==
LOC: M LABDRAW1 11:12
DX: N17.9 Acute kidney failure, unspecified (principal)
CPT/HCPCS: 80048

== ENCOUNTER → 2017-09-08 | Outpatient (REF) | payer MEDICARE, OTHER ==
[2017-09-08 13:17] LABS: APPEARANCE, URINE CLEAR (CLEAR); BACTERIA, URINE AUTO 1+ (NEGATIVE); BILIRUBIN, URINE AUTO NEGATIVE (NEGATIVE); BLOOD, URINE BLOOD NEGATIVE (NEGATIVE); COLOR, URINE YELLOW (YELLOW); GLUCOSE, URINE (UA) AUTO NEGATIVE (NEGATIVE); KETONE, URINE AUTO NEGATIVE (NEGATIVE); LEUKOCYTE ESTERASE, URINE AUTO TRACE (NEGATIVE); NITRITE, URINE AUTO NEGATIVE (NEGATIVE); PROTEIN, URINE AUTO NEGATIVE (NEGATIVE); RBC, URINE AUTO 1 /HPF (0-3); SPECIFIC GRAVITY URINE AUTO 1.005 (1.002-1.035); SQUAMOUS EPITHELIAL CELL UR AU 0 /HPF (0-6); UROBILINOGEN, URINE AUTO 0.2 mg/dL (0.0-2.0); WBC, URINE AUTO 0 /HPF (0-3)
== END ==
LOC: M LAB REF 12:40
DX: R35.0 Frequency of micturition (principal)
CPT/HCPCS: 81001

== ENCOUNTER → 2017-09-17 | Outpatient (CLI) | payer MEDICARE, OTHER | LOC: M WHC 09:46 | DX: Z12.31 Encounter for screening mammogram for malignant neoplasm of breast (principal) | CPT/HCPCS: 77067 ==

== ENCOUNTER → 2017-11-08 | Outpatient (REF) | payer MEDICARE, OTHER ==
[2017-11-08 15:44] LABS: ESTIMATED AVERAGE GLUCOSE 117 MG/DL (60-110); HEMOGLOBIN A1c 5.7 %; VITAMIN B12 LEVEL 555 PG/ML
[2017-11-08 15:45] LABS: FOLATE 19.2 NG/ML
[2017-11-08 15:46] LABS: FREE T4 1.34 NG/DL (0.76-1.46); RHEUMATOID FACTOR QUANT 11.6 IU/ML (<15.0); TOTAL PROTEIN 6.7 GM/DL (6.4-8.2)
[2017-11-08 16:36] LABS: ERYTHROCYTE SEDIMENTATION RATE 3 mm/hr (0-30)
[2017-11-09 14:38] LABS: ALBUMIN 4.29 GM/DL (3.29-5.55); ALBUMIN % 64.1 % (55.8-66.1); ALPHA-1-GLOBULIN % 4.1 % (2.9-4.9); ALPHA-1-GLOBULINS 0.27 GM/DL (0.17-0.41); ALPHA-2-GLOBULINS 0.68 GM/DL (0.42-0.99); ALPHA-2-GLOBULINS % 10.2 % (7.1-11.8); BETA-1-GLOBULINS 0.38 GM/DL (0.28-0.60); BETA-1-GLOBULINS % 5.7 % (4.7-7.2); BETA-2-GLOBULINS 0.34 GM/DL (0.19-0.55); GAMMA GLOBULIN % 10.9 % (11.1-18.8); GAMMA GLOBULINS 0.73 GM/DL (0.65-1.58)
[2017-11-13 08:06] LABS: ANTINUCLEAR ANTIBODIES DIRECT Negative (Negative); VITAMIN B1 LEVEL WHOLE BLOOD 120.6 nmol/L (66.5-200.0); VITAMIN B6,PYRIDOXAL PHOSPHATE 5.6 ug/L (2.0-32.8); VITAMIN E(GAMMA TOCOPHEROL) 2.7 mg/L (0.5-4.9)
== END ==
LOC: M LABNEURO 12:59
DX: G62.9 Polyneuropathy, unspecified (principal); E07.9 Disorder of thyroid, unspecified
CPT/HCPCS: 82746

== ENCOUNTER → 2017-12-20 | Outpatient (REF) | payer MEDICARE, OTHER ==
[2017-12-20 13:37] LABS: CREATININE FOR GFR 0.88 MG/DL (0.55-1.30); GLOMERULAR FILTRATION RATE > 60.0 (>39)
[2017-12-20 13:37] LABS: BLOOD UREA NITROGEN 19 MG/DL (7-18)
== END ==
LOC: M LABDRAWP 12:18
DX: R22.31 Localized swelling, mass and lump, right upper limb (principal)
CPT/HCPCS: 82565

== ENCOUNTER → 2018-07-22 | Outpatient (REF) | payer MEDICARE, OTHER ==
[~2018-07-22] MED LIST changes: +AMLO5TAB6 PO; +B-1210009 PO; +BACT800T5 PO; +CALC600T31 PO; +FLON1SPR; +LEVO75TA34 PO; +LISI10TA4 PO; +SULF1TAB72 PO; +VITA100066 PO
[2018-07-22 12:59] LABS: CALCIUM LEVEL 9.2 MG/DL (8.8-10.2); FREE T4 1.38 NG/DL (0.76-1.46); GLOMERULAR FILTRATION RATE 57.2 (>39); POTASSIUM SERUM 4.4 MEQ/L (3.5-5.1); THYROID STIMULATING HORMONE 2.28 uIU/ML (0.358-3.740)
== END ==
LOC: M LABDRAW1 11:49
PROVIDERS: ATTEND Physician Assistant
DX: I10 Essential (primary) hypertension (principal); E03.9 Hypothyroidism, unspecified

== ENCOUNTER 2018-12-30 15:25 | Emergency (ER) | payer MEDICARE, OTHER ==
[~2018-12-30] VITALS: Ht 154.9 cm; Wt 60.7 kg
[2018-12-30] MEDS ORDERED: RABIES IMMUNE GLOBULIN 1500 INTERNATIONAL UNIT/5ML VIAL (90375) IM ONE (16:15)
[2018-12-30] MEDS ORDERED: RABIES VACCINE HUMAN 2.5 INTERNATIONAL UNITS/ML VIAL (90675) IM ONE (16:15)
[2018-12-30] MEDS ORDERED: GABA-843 PO (16:36)
[2018-12-30] MEDS ORDERED: PANT20TA2 PO (16:37)
[2018-12-30] MEDS ORDERED: RABIES IMMUNE GLOBULIN 300 INTERNATIONAL UNITS/1ML VIAL (90375) IM ONE (17:00)
[2018-12-30] MEDS ORDERED: ADACEL/BOOSTRIX VACCINE (DIPHTH/PERTUSS/ACELL/TETANUS)0.5ML SYR (90715) IM ONE (17:15)
[2018-12-30 17:56] VITALS: BP 137/85
== END 2018-12-30 17:58 | disposition home or self-care (01) ==
LOC: M ED 15:25
DX: Z20.3 Contact with and (suspected) exposure to rabies (principal); Z23 Encounter for immunization; I10 Essential (primary) hypertension; E03.9 Hypothyroidism, unspecified; K21.9 Gastro-esophageal reflux disease without esophagitis; M48.00 Spinal stenosis, site unspecified; Z79.899 Other long term (current) drug therapy; Z79.890 Hormone replacement therapy; Z88.0 Allergy status to penicillin; Z88.1 Allergy status to other antibiotic agents; Z88.2 Allergy status to sulfonamides; Z88.8 Allergy status to other drugs, medicaments and biological substances; Z87.891 Personal history of nicotine dependence

== ENCOUNTER 2019-01-02 07:16 | Emergency (ER) | payer MEDICARE, OTHER ==
[~2019-01-02] VITALS: Ht 154.9 cm; Wt 60.4 kg
[~2019-01-02 07:16] MED LIST changes: +GABA-843 PO; +PANT20TA2 PO
[2019-01-02] MEDS ORDERED: RABIES VACCINE HUMAN 2.5 INTERNATIONAL UNITS/ML VIAL (90675) IM ONE (08:00)
[2019-01-02 08:49] VITALS: BP 135/65
== END 2019-01-02 08:50 | disposition home or self-care (01) ==
LOC: M ED 07:16
DX: Z20.3 Contact with and (suspected) exposure to rabies (principal); Z23 Encounter for immunization; I10 Essential (primary) hypertension; K21.9 Gastro-esophageal reflux disease without esophagitis; M54.9 Dorsalgia, unspecified; E03.9 Hypothyroidism, unspecified; Z79.899 Other long term (current) drug therapy; Z88.0 Allergy status to penicillin; Z88.2 Allergy status to sulfonamides; Z88.6 Allergy status to analgesic agent; Z88.1 Allergy status to other antibiotic agents

== ENCOUNTER 2019-01-06 07:15 | Emergency (ER) | payer MEDICARE, OTHER ==
[~2019-01-06] VITALS: Ht 154.9 cm; Wt 59.9 kg
[2019-01-06 07:16] VITALS: BP 157/69
[2019-01-06] MEDS ORDERED: RABIES VACCINE HUMAN 2.5 INTERNATIONAL UNITS/ML VIAL (90675) IM ONE (07:30)
== END 2019-01-06 08:07 | disposition home or self-care (01) ==
LOC: M ED 07:15
DX: Z20.3 Contact with and (suspected) exposure to rabies (principal); Z23 Encounter for immunization; I10 Essential (primary) hypertension; K21.9 Gastro-esophageal reflux disease without esophagitis; Z79.899 Other long term (current) drug therapy; Z88.0 Allergy status to penicillin; Z88.1 Allergy status to other antibiotic agents; Z88.2 Allergy status to sulfonamides; Z88.8 Allergy status to other drugs, medicaments and biological substances

== ENCOUNTER 2019-01-13 07:27 | Emergency (ER) | payer MEDICARE, OTHER ==
[~2019-01-13] VITALS: Ht 154.9 cm; Wt 60.5 kg
[2019-01-13 07:27] VITALS: BP 132/60
[2019-01-13] MEDS ORDERED: RABIES VACCINE HUMAN 2.5 INTERNATIONAL UNITS/ML VIAL (90675) IM ONE (07:45)
== END 2019-01-13 08:17 | disposition home or self-care (01) ==
LOC: M ED 07:27
DX: Z20.3 Contact with and (suspected) exposure to rabies (principal); Z23 Encounter for immunization; Z79.899 Other long term (current) drug therapy; Z79.890 Hormone replacement therapy; Z88.0 Allergy status to penicillin; Z88.1 Allergy status to other antibiotic agents; Z88.2 Allergy status to sulfonamides; Z88.8 Allergy status to other drugs, medicaments and biological substances

== ENCOUNTER → 2019-01-23 | Outpatient (REF) | payer MEDICARE, OTHER ==
[2019-01-23 12:52] LABS: BASO # 0.1 10^3/uL (0.0-0.2); EOS # 0.1 10^3/uL (0.0-0.5); EOS % 1.1 % (0.0-3.0); HEMATOCRIT 44.4 % (36.0-47.0); HEMOGLOBIN 13.9 g/dl (12.0-15.5); LYMPH % 25.6 % (24.0-44.0); MEAN CORPUSCULAR HEMOGLOBIN 29.3 pg (27.0-33.0); MEAN CORPUSCULAR HGB CONC 31.3 g/dl (32.0-36.5); MEAN CORPUSCULAR VOLUME 93.7 fl (80.0-96.0); MONO # 0.6 10^3/uL (0.0-0.8); MONO % 7.1 % (0.0-5.0); NEUTROPHILS # 5.1 10^3/uL (1.5-8.5); NEUTROPHILS % 64.9 % (36.0-66.0); PLATELET COUNT, AUTOMATED 291 10^3/uL (150-450); RED BLOOD COUNT 4.74 10^6/uL (4.00-5.40); WHITE BLOOD COUNT 7.9 10^3/uL (4.0-10.0)
[2019-01-23 13:05] LABS: ALBUMIN 3.6 GM/DL (3.2-5.2); BILIRUBIN,TOTAL 0.4 MG/DL (0.2-1.0); CALCIUM LEVEL 8.7 MG/DL (8.8-10.2); CHOLESTEROL RISK RATIO 3.171 (<5); CREATININE FOR GFR 0.99 MG/DL (0.55-1.30); GLOMERULAR FILTRATION RATE 57.8 (>39); POTASSIUM SERUM 4.1 MEQ/L (3.5-5.1); THYROID STIMULATING HORMONE 2.03 uIU/ML (0.358-3.740); TOTAL PROTEIN 6.3 GM/DL (6.4-8.2)
== END ==
LOC: M LABDRAW1 11:34
PROVIDERS: ATTEND Family Medicine
DX: I10 Essential (primary) hypertension (principal)

== ENCOUNTER 2020-05-17 10:08 | Emergency (ER) | payer MEDICARE, OTHER ==
[~2020-05-17] VITALS: Ht 154.9 cm; Wt 60.2 kg
[~2020-05-17 10:08] MED LIST changes: +AMLO1TAB24 PO; -AMLO5TAB6 PO; +GABA-282 PO; -GABA-843 PO; +LISI10TA22 PO; -LISI10TA4 PO; -PANT20TA2 PO; +PANT20TA6 PO; -SULF1TAB72 PO; +SULF400T14 PO
--- OUTSIDE RECORDS SUMMARY | 2020-05-17 10:20 | CCD | Continuity of Care Document ---
Author Author Kayleen TINEO [facility] Organization Unknown Address [address] [place] [address] Phone [phone] Care Team Providers Care Shuttle Van Driver Name Role Phone [facility] AUTM Saravanan GARCIA M.D., Jag Kinney AUTM [phone] Kirstin Cruz M.D. AUTM [phone] Tae Knight MD AUTM [phone] Christopher Eller MD AUTM [phone] Ruperto Kowalski MD AUTM [phone] [facility] - Orth[facility]edic Surgery AUTM [phone] [facility] - Allergy & Immunology AUTM [phone] Problems Active Problems Provider Date Hypothyroidism Dolores Hay M.D. Onset: 11/20/19 11 Essential hypertension Dolores Hay M.D. Onset: 11/19 Social History Type Date Description Comments Sex Unknown Tobacco Use Start: Unknown End: Unknown former cigarette smo ker Tobacco Use Start: Unknown Never Used Smokeless Tobacco ETOH Use Denies alcohol use Recreational Drug Use Denies Drug Use Tobacco Use Start: Unknown End: Unknown Patient is a former smoker stopped at age 68 Smoking Status Reviewed: 08/07/19 Patient is a former smoker st opped at age 68 Exercise Type/Frequency Does not exercise Tattoo/Piercing Pierced ears Tattoo/Piercing Tattoo 1 Sun Exposure Minimum amount of sun exposure Sun Exposure Does not use sunscreen Seat Belt/Car Seat Always uses seat belt Bike Helmet Never She no longer bi ke rides Smoke Alarms Yes Smoke Alarms Carbon Monoxide Detector: Yes Allergies, Adverse Reactions, Alerts Active Allergies Reaction Severity Comments Date Penicillin hives 10/17/2007 Tetracycline hives 10/17/2007 Cipro long lasting muscle pain Ibuprofen hives 10/07/2011 Amoxicillin 09/14/2013 Naprosyn hives 02/19/2014 Erythromycin hives 02/19/2014 Tylenol facial reddness and swelling 07/28/2016 Bactrim tongue swelling and rash Medications Active Medications SIG Qnty Indications Ordering Provide r Date Clindamycin HCL 150mg Capsules 1 tablet every 6 hours x7 days 28caps J01.90 Kate Tineo FNP 03/05 Fluticasone Propionate 50mcg/Act Suspension 1 spray into each nostril twice a day prn 9.900ml Dolores Hay M.D. 06/08/2019 Proair HFA 108(90Base) mcg/Act Aer osol 2 puffs every 4 hours as needed for cough 25.5gm Dolores Hay M.D. 06/08/2019 Lisinopril 20mg Tablets Take One Tablet By Mouth Every Day 90tabs I10 Dolores Hay M.D. 019 Amlodipine Besylate 5mg Tablets Take One Tablet By Mouth Every Day 90tabs I10 Dolores Hay M. D. 11/20/2016 Levothyroxine Sodium 75mcg Tablets Take One Tablet By Mouth Every Day 90tabs Dolores Hay M.D. 11/30/2011 Calcium 500/Vitamin D Tablets one po qd Unknown Omeprazole 20mg Capsules DR Take One Capsule By Mouth Every Day as Needed 90caps Mika Hay M.D. Gabapentin 100mg Capsules take 1 capsules by by mouth up to three times a day Unknown Vitamin C 250mg Chewtabs 2 tabs po daily Unknown Immunizations CPT Code Status Date Vaccine Lot # [id number] Given 12/24/2018 Influenza Virus Vaccine, Quadrivalent,age 3 and up,multidose vial 22017 Given 02/01/2018 Influenza Virus, quadravalent, preservative free,age 3 and up [id number] Given 01/11/2017 Influenza Vaccine (Fluzone)( medicare) [id number] 80003 Given 10/08/2016 Boostrix (Tdap) Tetnus, Diphtheria Toxoids & Acellular Pertussis 91690 Given 08/04/2016 Pneumococcal Vaccine [id number] Q2038 Given 12/26/2015 Influenza Vaccine (Fluzone)( medicare) [id number] 31971 Given 2015 Influenza Vaccination 70698 Given 08/31/2014 Prevnar 13 [id number] 46345 Given 01/04/2012 Zostavax 96504 Given 12/18/2011 Influenza Vaccination [id number] 24506 Given 10/12/2011 Boostrix (Tdap) Tetnus, Diphtheria Toxoids & Acellular Pertussis 15181 Given 12/23/2009 Influenza Vaccination 98250 Given Unknown Pneumococcal Vaccine 42163 Given Unknown Influenza Vaccination Vital Signs Date Vital Result Comment 02/07/2020 11:37am BP Systolic 139 mmHg BP Diastolic 80 mmHg Heart Rate 86 /min Body Temperature 97.5 F Respiratory Rate 16 /min Height 61.50 inches 5'1.50" Weight 135.38 lb O2 % BldC Oximetry 99 % Peak Expiratory Flow Rate 290 Estimated Peak Flow Rate [place] Body Weight 105 lb BMI (Body Mass Index) 25.2 kg/m2 08/07/2019 2:22pm BP Systolic 156 mmHg BP Diastolic 83 mmHg BP Systolic Recheck 140 mmHg BP Diastolic Recheck 71 mmHg Heart Rate 75 /min Body Temperature 98.3 F Respiratory Rate 20 /min Height 61.50 inches 5'1.50" Weight 133.50 lb O2 % BldC Oximetry 97 % Peak Expiratory Flow Rate 292 Estimated Peak Flow Rate [place] Body Weight 105 lb BMI (Body Mass Index) 24.8 kg/m2 Results Test Acquired Date Facility Test Result H/L Range Note CBC With Differential 01/31/2020 [facility] [id number] [facility], [address] [place] [address] [phone] WBC 7.2 x10E3/uL 3.4-10.8 RBC 4.61 x10E6/uL 3.77-5.28 Hemoglobin 13.7 g/dL 11.1-15.9 Hematocrit 41.5 % 34.0-46.6 MCV 90 fL 79-97 MCH 29.7 pg 26.6-33.0 MCHC 33.0 g/dL 31.5-35.7 RDW 12.6 % 11.7-15.4 Platelets 326 x10E3/uL 150-450 Neutrophils 60 % Not Estab. Lymphs 30 % Not Estab. Monocytes 8 % Not Estab. Eos 1 % Not Estab. Basos 1 % Not Estab. Immature Cells TNP Neutrophils (Absolute) 4.3 x10E3/uL 1.4-7.0 Lymphs (Absolute) 2.2 x10E3/uL 0.7-3.1 Monocytes(Absolute) 0.6 x10E3/uL 0.1-0.9 Eos (Absolute) 0.1 x10E3/uL 0.0-0.4 Baso (Absolute) 0.1 x10E3/uL 0.0-0.2 Immature Granulocytes 0 % Not Estab. Immature Grans (Abs) 0.0 x10E3/uL 0.0-0.1 NRBC TNP Hematology Comments: TNP Laboratory test finding 01/31/2020 [facility] [id number] [facility], [address] [place], [place] [id number] [phone] TSH 1.700 uIU/mL 0.450-4.500 Metabolic Panel (14), Comprehensive 01/31/2020 [facility] [id number], [address] [place], [place] [id number] [phone] Glucose 87 mg/dL 65-99 BUN 22 mg/dL 8-27 Creatinine 0.89 mg/dL 0.57-1.00 eGFR If NonAfricn Am 62 mL/min/1.73 >59 eGFR If Africn Am 71 mL/min/1.73 >59 BUN/Creatinine Ratio 25 12-28 Sodium 140 mmol/L 134-144 Potassium 4.5 mmol/L 3.5-5.2 Chloride 103 mmol/L 96-106 Carbon Dioxide, Total 25 mmol/L 20-29 Calcium 9.3 mg/dL 8.7-10.3 Protein, Total 6.6 g/dL 6.0-8.5 Albumin 4.0 g/dL 3.7-4.7 Globulin, Total 2.6 g/dL 1.5-4.5 A/G Ratio 1.5 1.2-2.2 Bilirubin, Total 0.3 mg/dL 0.0-1.2 Alkaline Phosphatase 95 IU/L 39-117 Ast (Sgot) 19 IU/L 0-40 Alt (SGPT) 16 IU/L 0-32 Laboratory test finding 01/31/2020 [facility] [id number] [address] [place] [address] [phone] Thyroxine (T4) Free, Direct, S 1.41 ng/dL 0 .82-1.77 Hepatic Function Panel (7) 01/31/2020 [facility] [id number] [facility], [address] [place] [address] [phone] Bilirubin, Direct 0.10 mg/dL 0.00-0.40 Procedures Date Code Description Status 09/21/2019 [id number] Mammogram Completed 09/19/2018 [id number] Bone Mineral Density Test Comple francoise 09/17/2017 [id number] Mammogram Completed 09/15/2016 [id number] Mammogram Completed Medical Devices Description No Information Available Encounters Type Date Location Provider Dx Diagnosis Office Visit 02/07/2020 11:30a Main Office Dolores Hay M.D. E 03.9 Hypothyroidism, unspecified I10 Essential (primary) hyperten dong Z00.00 Encntr for general adult med ical exam w/o abnormal findings Assessments Date Code Description Provider 03/05/2020 J01.90 Acute sinusitis, unspecified Ple Kate grady FNP 02/07/2020 E03.9 Hypothyroidism, unspecified Will Dolores cha M.D. 02/07/2020 I10 Essential (primary) hypertension Dolores Hay M.D. 02/07/2020 Z00.00 Encounter for genera l adult medical examination without abnormal findings Dolores Hay M.D. Plan of Treatment Future Appointment(s):* 08/13/2020 11:15 am - Dolores Hay M.D. at Main Office 03/05/2020 - Kate Tineo FNP* J01.90 Acute sinusitis, unspecified* New Medication:* Clindamycin HCL 150 mg - 1 tablet every 6 hours x7 days Functional Status Functional Condition Comment Date Status Trifocal glasses Active Independent with all ADL's Activ e Complete upper dentures Active Independent with all IADL's Acti ve Partial lower dentures Active Hearing Aid in both ears Active Mental Status Mental Condition Comment Date Status None Active Referrals Description No Information Available
--- OUTSIDE RECORDS SUMMARY | 2020-05-17 10:20 | CCD | Continuity of Care Document ---
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 Essential hypertension Onset: 08/30/2015 Social History Type Date Description Comments Sex Unknown ETOH Use Denies alcohol use Tobacco Use Start: Unknown End: Unknown Patient is a former smoker 1 ppd Allergies, Adverse Reactions, Alerts Active Allergies Reaction Severity Comments Date Cipro 08/30/2015 Penicillin 08/30/2015 Erythromycin 08/30/2015 Tetracycline 08/30/2015 Naproxin 08/30/2015 Ibuprofen 04/20/2016 Acetaminophen 10/09/2016 sulfa drugs 11/23/2017 Quinolones 08/29/2018 Acetaminophen 04/12/2020 Bactrim 04/12/2020 Medications Active Medications SIG Qnty Indications Ordering Provide r Date Euflexxa 20mg/2ML Soln Prefill Syr robby margo knee #1 bms/tf 10/02/2019, margo knee #2 bms/rm 10/18/2019 margo knee #3 10/25/2019 bms/hd Alvaro Bolton MD 08/29/2018 Gabapentin 100mg Capsules Take One Capsule By Mouth Every Day In The Morning 90caps M47.896 Alvaro gandhi MD 02/22/2018 Lisinopril 10mg Tablets 1 by mouth every day Unknown Levothyroxine Sodium 75mcg Tablets 1 by mouth every day Unknown Calcium 600 + D [id number] Ta blets 1 by mouth every day Unknown Vitamin D3 1000Unit Capsules every day Unknown Fish Oil 1000mg Capsules Unknown Amlodipine Besylate 5mg Tablets 1 by mouth every day Unknown Super B Complex/Vitamin C Tablets Unknown [place] Cucumin 750 Unknown Albuterol Sulfate HFA 108(90Base) mcg/Act Aerosol Unknown Fluticasone Propionate/Salmeterol 113-14mcg/Act Aerosol Unknown Aspirin [address] 1 by mouth every day Unknown Immunizations Description No Information Available Vital Signs Date Vital Result Comment 04/12/2020 2:02pm Body Temperature 96.9 F Height 61 inches 5'1" Weight 130.00 lb BMI (Body Mass Index) 24.6 kg/m2 11/23/2017 1:44pm Body Temperature 98.6 F Height 60.25 inches 5'0.25" Weight 125.44 lb BMI (Body Mass Index) 24.3 kg/m2 Results Description No Information Available Procedures Date Code Description Status 04/12/2020 86408 X-Ray Shoulder Complete Complete d 04/12/2020 57612 Inject/Drain Joint/Bursa Major C ompleted 10/25/2019 96999 Inject/Drain Joint/Bursa Major C ompleted Medical Devices Description No Information Available Encounters Type Date Location Provider Dx Diagnosis Office Visit 04/12/2020 2:00p Olga Corral PA-C 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, right shoulder M75.41 Impingement syndrome of righ t shoulder Office Visit 10/25/2019 9:00a Olga Corral PA-C M1 7.0 Bilateral primary osteoarthritis of knee Assessments Date Code Description Provider 04/12/2020 M19.011 Primary osteoarthritis, right sh chuyita Corral PA-C 04/12/2020 M75.41 Impingement syndrome of right sh chuyita Corral PA-C 10/25/2019 M17.0 Bilateral primary osteoarthritis of knee Abdulaziz Corral PA-C Plan of Treatment 04/12/2020 - Abdulaziz Corral PA-C* M19.011 Primary osteoarthritis, right shoulder* Follow up:* prn * M75.41 Impingement syndrome of right shoulder Functional Status Description No Information Available Mental Status Description No Information Available Referrals Description No Information Available
--- OUTSIDE RECORDS SUMMARY | 2020-05-17 10:20 | CCD | Continuity of Care Document ---
Author Author Kayleen CORRAL PANadyaC Organization Unknown Address [address] [address] Phone [phone] Care Team Providers Care Metalizing Machine Operator Automatic Name Role Phone Matthew Pierce AUTM [phone] Problems Active Problems Provider Date Localized, secondary [...] Soln Prefill Syr robby margo knee #1 bms/hd 05/07/20 Erma Cantor MD 05/07/2020 Euflexxa 20mg/2ML Soln Prefill Syr robby margo [...] every day Unknown Calcium 600 + D [id number] Ta blets 1 by mouth every day [...] Information Available Procedures Date Code Description Status 05/07/202082372 Inject/Drain Joint/Bursa Major C ompleted 04/12/2020 91075 X-Ray Shoulder Complete Complete d 04/12/202028676 Inject/Drain Joint/Bursa Major C ompleted Medical Devices Description No Information Available Encounters Type Date Location Provider Dx Diagnosis Office Visit 05/07/2020 10:30a Olga Corral PA-C M1 7.0 Bilateral primary osteoarthritis of knee Office Visit 04/12/2020 2:00p Olga Corral PA-C 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, right shoulder M75.41 Impingement syndrome of righ t shoulder Assessments Date Code Description Provider 05/07/2020 M17.0 Bilateral primary osteoarthritis of knee Abdulaziz Corral PA-C 04/12/2020 M19.011 Primary osteoarthritis, right sh oulder Abdulaziz Corral PA-C 04/12/2020 M75.41 Impingement syndrome of right sh rajaner Abdulaziz Corral PA-C Plan of Treatment Future Appointment(s):* 05/27/2020 10:45 am - Abdulaziz Corral PA-C at [place] * 05/20/2020 10:45 am - Abdulaziz Corral PA-C at [facility] Functional Status Description No Information Available Mental Status Description No Information Available Referrals Refer to Dr Reason for Referral Status Appt Date Abdulaziz Corral PA-C Bilateral knee Euflexxa- No authorization req if MCR prime. Passing to scheduling Created [address] [facility] [address] [place] [address] [phone]
--- OUTSIDE RECORDS SUMMARY | 2020-05-17 10:20 | CCD | Continuity of Care Document ---
Author Author Kayleen TINEO [facility] Organization Unknown Address [address] [place] [address] Phone [phone] Care Team Providers Care Agricultural Service Worker Name Role Phone [facility] AUTM [phone] Saravanan GARCIA M.D., Jag Kinney AUTM [phone] Kirstin Cruz M.D. AUTM [phone] Tae Knight MD AUTM [phone] Christopher Eller MD AUTM [phone] Ruperto Kowalski MD AUTM [phone] [facility] - Orthopaedic Surgery AUTM [phone] [facility] - Allergy & Immunology AUTM [phone] Problems Active Problems Provider Date Hypothyroidism Dolores [...] CPT Code Status Date Vaccine Lot # [id number] Given 12/24/2018 Influenza Virus Vaccine, Quadrivalent,age 3 and up,multidose vial 57092 Given 02/01/2018 Influenza Virus, quadravalent, preservative free,age 3 and up [id number] Q2038 Given 01/11/2017 Influenza Vaccine (Fluzone)( medicare) [id number] 85470 Given 10/08/2016 Boostrix (Tdap) Tetnus, Diphtheria Toxoids & Acellular Pertussis 37849 Given 08/04/2016 Pneumococcal Vaccine [id number] Q2038 Given 12/26/2015 Influenza Vaccine (Fluzone)( medicare) [id number] 93616 Given 2015 Influenza Vaccination 26878 Given 08/31/2014 Prevnar 13 [id number] 38612 Given 01/04/2012 Zostavax 35600 Given 12/18/2011 Influenza Vaccination [id number] 61745 Given 10/12/2011 Boostrix (Tdap) Tetnus, Diphtheria Toxoids & Acellular Pertussis 58873 Given 12/23/2009 Influenza Vaccination 99872 Given Unknown Pneumococcal Vaccine 97573 Given Unknown Influenza Vaccination Vital Signs Date Vital Result Comment 02/07/2020 11:37am BP Systolic 139 mmHg BP Diastolic 80 mmHg Heart Rate 86 /min Body Temperature 97.5 F Respiratory Rate 16 /min Height 61.50 inches 5'1.50" Weight 135.38 lb O2 % BldC Oximetry 99 % Peak Expiratory Flow Rate 290 Estimated Peak Flow Rate [place] Body Weight 105 lb BMI (Body Mass [...] Flow Rate 292 Estimated Peak Flow Rate [place] Body Weight 105 lb BMI (Body Mass Index) 24.8 kg/m2 Results Test Acquired Date Facility Test Result H/L Range Note CBC With Differential 01/31/2020 [facility] [id number] [facility], [address] [place] [address] [phone] WBC 7.2 x10E3/uL 3.4-10.8 RBC 4.61 x10E6/uL [...] Comments: TNP Laboratory test finding 01/31/2020 [facility] [id number] [facility], [address] [place], [place] [id number] [phone] TSH 1.700 uIU/mL 0.450-4.500 Metabolic Panel (14), Comprehensive 01/31/2020 [facility] [id number] [facility], [address] [place], [place] [address] [phone] Glucose 87 mg/dL 65-99 BUN 22 mg/dL [...] IU/L 0-32 Laboratory test finding 01/31/2020 [facility] [id number] [facility], [address] [place] [address] [phone] Thyroxine (T4) Free, Direct, S 1.41 ng/dL 0 .82-1.77 Hepatic Function Panel (7) 01/31/2020 [facility] [id number] [facility], [address] [place] [address] [phone] Bilirubin, Direct 0.10 mg/dL 0.00-0.40 Procedures Date Code Description Status 09/21/2019 [id number] Mammogram Completed 09/19/2018 [id number] Bone Mineral Density Test Comple francoise 09/17/2017 [id number] Mammogram Completed 09/15/2016 [id number] Mammogram Completed Medical Devices Description No Information Available Encounters Type Date Location Provider Dx Diagnosis Office Visit 03/05/2020 3:15p Main Office Kate Tineo FNP J01.9 0 Acute sinusitis, unspecified Office Visit 02/07/2020 11:30a Main Office Dolores [...] l adult medical examination without abnormal findings Doloers Hay M.D. Plan of Treatment Future Appointment(s):* [...]
--- OUTSIDE RECORDS SUMMARY | 2020-05-17 10:20 | CCD | Continuity of Care Document ---
Author Author [facility] Organization [facility] Address Unknown Phone Unavailable Care Team Providers Care Obstetrics Nurse Practitioner Name Role Phone Dion Myers MD Unavailable Unavailable Allergies, Adverse Reactions, Alerts Substance Reaction Status Criticality CIPROFLOXACIN HCL Active No Information ciprofloxacin Active No Information acetaminophen Active No Information tetracycline Active No Information naproxen Active No Information Sulfa (Sulfonamide Antibiotics) Active No Information Penicillins Active No Information ibuprofen Active No Information erythromycin base Active No Information Medications Medication Instructions Dosage Effective Dates (start - stop) Sta tus Comments desonide 0.05 % topical cream apply by topical route 2 times every day sparingly and rub gently into the affected area(s) as needed 0.00 - Active amlodipine 5 mg tablet take 1 tablet by oral route every day 5 MG - Active lisinopril 10 mg tablet take 1 tablet by oral route every day 10 MG - Active levothyroxine 75 mcg tablet take 1 tablet by oral route every day 75 MCG - Active fluticasone 50 mcg/actuation nasal spray,suspension sp ray 1 spray by intranasal route every day in each nostril - Active Ventolin HFA 90 mcg/actuation aerosol inhaler inhale 2 puff by inhalation route every 4 - 6 hours as needed - Active CURCUMIN (unknown strength) Not Available - Activ e Vitamin D3 2,000 unit tablet - Active CALCIUM CARBONATE/VITAMIN D3 (unknown strength) Not Availa ble - Active aspirin 81 mg tablet,delayed release take 1 tablet by oral r oute every day 81 MG - Active Problems Condition Type Effective Dates (start - stop) Clinical S tatus Comments Pain in unspecified lower leg Diagnosis interpretation (observable entity) Other specified abnormal findings of blood chemistry D iagnosis interpretation (observable entity) Pain in unspecified lower leg Diagnosis interpretation (observable entity) Pain in unspecified lower leg Diagnosis interpretation (observable entity) Other specified abnormal findings of blood chemistry D iagnosis interpretation (observable entity) Osteoarthritis Problem (finding) Active Hypothyroidism Problem (finding) Active High Blood Pressure Problem (finding) Active Pneumonia Problem (finding) Active Procedures Procedure Date No Information Results Test Name Date and Time Measure Units Reference Range Abnormal Flag St atus Comments No Information Advance Directives Directive Yes / No Effective Date File Name No Information Encounters Encounter Description Practice Location Reason(s) For Visit Diagnose s Date Provider Providers Copied on Encounter [facility], [address] [place] [address], [id number], tel:[phone] [facility] No Information Louis Ashley. [address] [place] [address], [id number], [place]. tel:[phone] [facility], [address] [place] [address], [id number], tel:[phone] [facility] Pain in unspecified lower legOther specified abnormal findings of blood chemistry Chrissy Morgan. [address] [place] [address], [id number], . tel:[phone] Referring Provider: Shelby Christian [address], [place], [address]. tel:[phone] [facility], [address] [place] [address], [id number], tel:[phone] [facility] Pain in unspecified lower leg Naheed Thorne. [address] [place] [address], [id number], [place]. tel:[phone] Referring Provider: Bella [address], [place], [address]. tel:[phone] [facility], [address] [place] [address], [id number], tel:[phone] [facility] Pain in unspecified lower legOther specified abnormal findings of blood chemistry Naheed Thorne. [address] [place] [address], [id number], . tel:[phone] Referring Provider: Shelby Christian [address], [place], [address]. tel:[phone] Family History Family Member Type Diagnosis Age At Onset Daughter Problem (finding) Lupus Son Problem (finding) Ankylosing Spondylitis Son Problem (finding) Lower Back Pain Sister Problem (finding) Lower Back Pain Mother Problem (finding) Lower Back Pain Daughter Problem (finding) Raynauds Disease Son Problem (finding) Fibromyalgia Immunizations Vaccine Date Status Comments Pneumococcal conjugate PCV 13 administered No te: Invalid documented admin date was NULL/NULL/2016. ; Source: Other Provider Influenza, injectable, quadrivalent, spl it virus, 18 years or older Afluria Quad [id number] administered Note: Invalid docume nted admin date was NULL/NULL/2016. ; Source: Other Provider Payers Payer name Insurance type Covered libertarian ID Authorization(s ) Medicare MB [id number] [facility] [id number] Social History Type Description Quantity Date Captured Comments Sex Female Smoking Status No Information Vital Signs Date / Time: Height Weight BMI Pulse Rate Blood Pressure Temperatu re Respiratory Rate Body Surface Area Head Circumference BMI percentile Pulse Ox In haled Ox No Information Chief Complaint And Reason For Visit No Information Reason For Referral Reason For Referral No Information Plan Of Treatment Date Type Action Status Referral Ordered: NCS/EMG bilateral leg ordered Referral Ordered: TIBIA AND FIBULA X-RAY, 2 VIEW Right ordered Referral Ordered: TIBIA AND FIBULA X-RAY, 2 VIEW Left ordered History Of Present Illness Encounter Date Complaint History Of Present I llness No Information Functional Status Date Functional Assessment No Information Medications Administered Medication Instructions Dosage Effective Dates (start - stop) Sta tus Comments No Information Instructions Date Instruction Additional Informati on No Information Physical Examination Exam Findings Details No Information
--- OUTSIDE RECORDS SUMMARY | 2020-05-17 10:20 | CCD | Continuity of Care Document ---
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 Essential hypertension Onset: 08/30/2015 Social History Type Date Description Comments Sex Unknown ETOH Use Denies alcohol use Tobacco Use Start: Unknown End: Unknown Patient is a former smoker Allergies, Adverse Reactions, Alerts Active Allergies Reaction Severity Comments Date Cipro 08/30/2015 Penicillin 08/30/2015 Erythromycin 08/30/2015 Tetracycline 08/30/2015 Naproxin 08/30/2015 Ibuprofen 04/20/2016 Acetaminophen 10/09/2016 sulfa drugs 11/23/2017 Quinolones 08/29/2018 Medications Active Medications SIG Qnty Indications Ordering Provide r Date Euflexxa 20mg/2ML Soln Prefill Syr robby margo knee #1 bms/tf 10/02/2019, margo knee #2 bms/rm 10/18/2019 margo knee #3 10/25/2019 [facility] [place]/ Alvaro Bolton MD 08/29/2018 Gabapentin 100mg Capsules Take One Capsule By Mouth Every Day In The Morning 90caps M47.896 Alvaro gandhi MD 02/22/2018 Lisinopril 10mg Tablets 1 by mouth every day Unknown Levothyroxine Sodium 75mcg Tablets 1 by mouth every day Unknown Calcium 600 + D [id number] blets 1 by mouth every day Unknown Vitamin D3 1000Unit Capsules every day Unknown Fish Oil 1000mg Capsules Unknown Amlodipine Besylate 5mg Tablets 1 by mouth every day Unknown Super B Complex/Vitamin C Tablets Unknown Tumerick Cucumin 750 Unknown Omeprazole 20mg Capsules DR Take One Capsule By Mouth Every Day as Needed Unknown Immunizations Description No Information Available Vital Signs Date Vital Result Comment 04/12/2020 2:02pm Body Temperature 96.9 F Height 61 inches 5'1" Weight 130.00 lb BMI (Body Mass Index) 24.6 kg/m2 11/23/2017 1:44pm Body Temperature 98.6 F Height 60.25 inches 5'0.25" Weight 125.44 lb BMI (Body Mass Index) 24.3 kg/m2 Results Description No Information Available Procedures Date Code Description Status 04/12/2020 30270 X-Ray Shoulder Complete Complete d 04/12/202050145 Inject/Drain Joint/Bursa Major C ompleted 10/25/2019 59054 Inject/Drain Joint/Bursa Major C ompleted 10/18/2019 52396 Inject/Drain Joint/Bursa Major C ompleted Medical Devices Description No Information Available Encounters Type Date Location Provider Dx Diagnosis Office Visit 04/12/2020 2:00p Olga Corral PA-C 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, right shoulder M75.41 Impingement syndrome of righ t shoulder Office Visit 10/25/2019 9:00a Olga Corral PA-C M1 7.0 Bilateral primary osteoarthritis of knee Office Visit 10/18/2019 8:45a Olga Corral PA-C M1 7.0 Bilateral primary osteoarthritis of knee Assessments Date Code Description Provider 04/12/2020 M19.011 Primary osteoarthritis, right sh chuyita Corral PA-C 04/12/2020 M75.41 Impingement syndrome of right sh chuyita Corral PA-C 10/25/2019 M17.0 Bilateral primary osteoarthritis of knee Abdulaziz Corral PA-C 10/18/2019 M17.0 Bilateral primary osteoarthritis of knee Abdulaziz Corral PA-C Plan of Treatment 04/12/2020 - Abdulaziz Corral PA-C* M19.011 Primary osteoarthritis, right shoulder* Follow up:* prn * M75.41 Impingement syndrome of right shoulder Functional Status Description No Information Available Mental Status Description No Information Available Referrals Description No Information Available
--- OUTSIDE RECORDS SUMMARY | 2020-05-17 10:20 | CCD | Continuity of Care Document ---
Author Author Kayleen CORRAL PANadyaC Organization Unknown Address [address] [address] Phone [phone] Care Team Providers Care Strategic Account Executive Name Role Phone Matthew Pierce AUTM [phone] Problems Active Problems Provider Date Localized, secondary [...] every day Unknown Calcium 600 + D [id number] blets 1 by mouth every day [...] Information Available Procedures Date Code Description Status 05/07/202007728 Inject/Drain Joint/Bursa Major C ompleted 04/12/2020 91549 X-Ray Shoulder Complete Complete d 04/12/202092862 Inject/Drain Joint/Bursa Major C ompleted Medical Devices [...] syndrome of right sh chuyita Corral PA-C Plan of Treatment No Information Available Functional Status Description No Information Available Mental Status Description No Information Available Referrals Description No Information Available
--- OUTSIDE RECORDS SUMMARY | 2020-05-17 10:21 | CCD ---
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 Name Role Phone Stephon Hay MD Unavailable Unavailable Satnam, Stephon Bernal MD Unavailable Unavailable Satnam, Stephon Bernal MD Unavailable Unavailable Satnam, Stephon Bernal MD Unavailable Unavailable Satnam, Stephon Bernal MD Unavailable Unavailable Satnam, Stephon Bernal MD Unavailable Unavailable Satnam, Stephon Bernal MD Unavailable Unavailable Satnam, Stephon Bernal MD Unavailable Unavailable Satnam, Stephon Bernal MD Unavailable Unavailable Satnam, Stephon Bernal MD Unavailable Unavailable Satnam, Stephon Bernal MD Unavailable Unavailable Satnam, Stephon Bernal MD Unavailable Unavailable Satnam, Stephon Bernal MD Unavailable Unavailable Satnam, Stephon Bernal MD Unavailable Unavailable Satnam, Stephon Bernal MD Unavailable Unavailable Satnam, Stephon Bernal MD Unavailable Unavailable Satnam, Stephon Bernal MD Unavailable Unavailable Satnam, Stephon Bernal MD Unavailable Unavailable Satnam, Stephon Bernal MD Unavailable Unavailable Satnam, Stephon Bernal MD Unavailable Unavailable Satnam, Stephon Bernal MD Unavailable Unavailable Satnam, Stephon Bernal MD Unavailable Unavailable Satnam, Stephon Bernal MD Unavailable Unavailable Satnam, Stephon Bernal MD Unavailable Unavailable Satnam, Stephon Bernal MD Unavailable Unavailable Satnam, Stephon Bernal MD Unavailable Unavailable Satnam, Stephon Bernal MD Unavailable Unavailable Satnam, Stephon Bernal MD Unavailable Unavailable Satnam, Stephon Bernal MD Unavailable Unavailable Satnam, Stephon Bernal MD Unavailable Unavailable Satnam, Stephon Bernal MD Unavailable Unavailable Satnam, Stephon Bernal MD Unavailable Unavailable Satnam, Stephon Bernal MD Unavailable Unavailable Satnam, Stephon Bernal MD Unavailable Unavailable Satnam, Stephon Bernal MD Unavailable Unavailable Satnam, Stephon Bernal MD Unavailable Unavailable Satnam, Stephon Bernal MD Unavailable Unavailable Satnam, Stephon Bernal MD Unavailable Unavailable Satnam, Stephon Bernal MD Unavailable Unavailable Satnam, Stephon Bernal MD Unavailable Unavailable Satnam, Stephon Bernal MD Unavailable Unavailable Satnam, Stephon Bernal MD Unavailable Unavailable Satnam, Stephon Bernal MD Unavailable Unavailable Satnam, Stephon Bernal MD Unavailable Unavailable Satnam, Stephon Bernal MD Unavailable Unavailable Satnam, Stephon Bernal MD Unavailable Unavailable Satnam, Stephon Bernal MD Unavailable Unavailable Satnam, Stephon Bernal MD Unavailable Unavailable Satnam, Stephon Bernal MD Unavailable Unavailable Satnam, Stephon Bernal MD Unavailable Unavailable Satnam, Stephon Bernal MD Unavailable Unavailable Satnam, Stephon Bernla MD Unavailable Unavailable Satnam, Stephon Bernal MD Unavailable Unavailable Satnam, Stephon Bernal MD Unavailable Unavailable Satnam, Stephon Bernal MD Unavailable Unavailable Satnam, Stephon Bernal MD Unavailable Unavailable Satnam, Stephon Bernal MD Unavailable Unavailable Satnam, Stephon Bernal MD Unavailable Unavailable Satnam, Stephon Bernal MD Unavailable Unavailable Satnam, Stephon Bernal MD Unavailable Unavailable Satnam, Stephon Bernal MD Unavailable Unavailable Satnam, Stephon Bernal MD Unavailable Unavailable Satnam, Stephon Bernal MD Unavailable Unavailable Satnam, Stephon Bernal MD Unavailable Unavailable Satnam, Stephon Bernal MD Unavailable Unavailable Satnam, Stephon Bernal MD Unavailable Unavailable Satnam, Stephon Bernal MD Unavailable Unavailable Satnam, Stephon Bernal MD Unavailable Unavailable Satnam, Stephon Bernal MD Unavailable Unavailable Satnam, Stephon Bernal MD Unavailable Unavailable Satnam, Stephon Bernal MD Unavailable Unavailable Satnam, Stephon Bernal MD Unavailable Unavailable Satnam, Stephon Bernal MD Unavailable Unavailable Satnam, Stephon Bernal MD Unavailable Unavailable Satnam, Stephon Bernal MD Unavailable Unavailable DONIS REEVES MD Unavailable Unavailable DONIS REEVES MD Unavailable Unavailable DONIS REEVES MD Unavailable Unavailable DONIS REEVES MD Unavailable Unavailable DONIS REEVES MD Unavailable Unavailable DONIS REEVES MD Unavailable Unavailable DONIS REEVES MD Unavailable Unavailable DONIS REEVES MD Unavailable Unavailable DONIS REEVES MD Unavailable Unavailable DONIS REEVES MD Unavailable Unavailable DONIS REEVES MD Unavailable Unavailable DONIS REEVES MD Unavailable Unavailable DONIS REEVES MD Unavailable Unavailable KHAIRALLAH, RAMZI MD Unavailable Unavailable KHAIRALLAH, RAMZI MD Unavailable Unavailable KHAIRALLAH, RAMZI MD Unavailable Unavailable KHAIRALLAH, RAMZI MD Unavailable Unavailable KHAIRALLAH, RAMZI MD Unavailable Unavailable KHAIRALLAH, RAMZI MD Unavailable Unavailable KHAIRALLAH, RAMZI MD Unavailable Unavailable KHAIRALLAH, RAMZI MD Unavailable Unavailable KHAIRALLAH, RAMZI MD Unavailable Unavailable KHAIRALLAH, RAMZI MD Unavailable Unavailable KHAIRALLAH, RAMZI MD Unavailable Unavailable KHAIRALLAH, RAMZI MD Unavailable Unavailable KHAIRALLAH, RAMZI MD Unavailable Unavailable KHAIRALLAH, RAMZI MD Unavailable Unavailable KHAIRALLAH, RAMZI MD Unavailable Unavailable KHAIRALLAH, RAMZI MD Unavailable Unavailable KHAIRALLAH, RAMZI MD Unavailable Unavailable KHAIRALLAH, RAMZI MD Unavailable Unavailable KHAIRALLAH, RAMZI MD Unavailable Unavailable KHAIRALLAH, RAMZI MD Unavailable Unavailable KHAIRALLAH, RAMZI MD Unavailable Unavailable KHAIRALLAH, RAMZI MD Unavailable Unavailable KHAIRALLAH, RAMZI MD Unavailable Unavailable KHAIRALLAH, RAMZI MD Unavailable Unavailable KHAIRALLAH, RAMZI MD Unavailable Unavailable KHAIRALLAH, RAMZI MD Unavailable Unavailable KHAIRALLAH, RAMZI MD Unavailable Unavailable KHAIRALLAH, RAMZI MD Unavailable Unavailable KHAIRALLAH, RAMZI MD Unavailable Unavailable KHAIRALLAH, RAMZI MD Unavailable Unavailable KHAIRALLAH, RAMZI MD Unavailable Unavailable KHAIRALLAH, RAMZI MD Unavailable Unavailable KHAIRALLAH, RAMZI MD Unavailable Unavailable KHAIRALLAH, RAMZI MD Unavailable Unavailable KHAIRALLAH, RAMZI MD Unavailable Unavailable KHAIRALLAH, RAMZI MD Unavailable Unavailable KHAIRALLAH, RAMZI MD Unavailable Unavailable KHAIRALLAH, RAMZI MD Unavailable Unavailable KHAIRALLAH, RAMZI MD Unavailable Unavailable KHAIRALLAH, RAMZI MD Unavailable Unavailable KHAIRALLAH, RAMZI MD Unavailable Unavailable KHAIRALLAH, RAMZI MD Unavailable Unavailable KHAIRALLAH, RAMZI MD Unavailable Unavailable KHAIRALLAH, RAMZI MD Unavailable Unavailable KHAIRALLAH, RAMZI MD Unavailable Unavailable KHAIRALLAH, RAMZI MD Unavailable Unavailable KHAIRALLAH, RAMZI MD Unavailable Unavailable KHAIRALLAH, RAMZI MD Unavailable Unavailable KHAIRALLAH, RAMZI MD Unavailable Unavailable KHAIRALLAH, RAMZI MD Unavailable Unavailable KHAIRALLAH, RAMZI MD Unavailable Unavailable KHAIRALLAH, RAMZI MD Unavailable Unavailable DONIS REEVES MD Unavailable Unavailable DONIS REEVES MD Unavailable Unavailable DONIS REEVES MD Unavailable Unavailable DONIS REEVES MD Unavailable Unavailable DONIS REEVES MD Unavailable Unavailable DONIS REEVES MD Unavailable Unavailable DONIS REEVES MD Unavailable Unavailable DONIS REEVES MD Unavailable Unavailable DONIS REEVES MD Unavailable Unavailable DONIS REEVES MD Unavailable Unavailable DONIS REEVES MD Unavailable Unavailable DONIS REEVES MD Unavailable Unavailable DONIS REEVES MD Unavailable Unavailable DONIS REEVES MD Unavailable Unavailable DONIS REEVES MD Unavailable Unavailable DONIS REEVES MD Unavailable Unavailable DONIS REEVES MD Unavailable Unavailable DONIS REEVES MD Unavailable Unavailable DONIS REEVES MD Unavailable Unavailable DONIS REEVES MD Unavailable Unavailable DONIS REEVES MD Unavailable Unavailable Pleskach, Kate CLIPPER OPERATOR Unavailable Unavailable Pleskach, Kate CLIPPER OPERATOR Unavailable Unavailable Pleskach, Kate CLIPPER OPERATOR Unavailable Unavailable Pleskach, Kate CLIPPER OPERATOR Unavailable Unavailable Pleskach, Kate CLIPPER OPERATOR Unavailable Unavailable Pleskach, Kate CLIPPER OPERATOR Unavailable Unavailable Pleskach, Kate CLIPPER OPERATOR Unavailable Unavailable Pleskach, Kate CLIPPER OPERATOR Unavailable Unavailable Pleskach, Kate CLIPPER OPERATOR Unavailable Unavailable Pleskach, Kate CLIPPER OPERATOR Unavailable Unavailable Pleskach, Kate CLIPPER OPERATOR Unavailable Unavailable Pleskach, Kate CLIPPER OPERATOR Unavailable Unavailable Pleskach, Kate CLIPPER OPERATOR Unavailable Unavailable Pleskach, Kate CLIPPER OPERATOR Unavailable Unavailable Pleskach, Kate CLIPPER OPERATOR Unavailable Unavailable Pleskach, Kate CLIPPER OPERATOR Unavailable Unavailable Pleskach, Kate CLIPPER OPERATOR Unavailable Unavailable Pleskach, Kate CLIPPER OPERATOR Unavailable Unavailable Pleskach, Kate CLIPPER OPERATOR Unavailable Unavailable Pleskach, Kate CLIPPER OPERATOR Unavailable Unavailable Pleskach, Kate CLIPPER OPERATOR Unavailable Unavailable Pleskach, Kate CLIPPER OPERATOR Unavailable Unavailable Pleskach, Kate CLIPPER OPERATOR Unavailable Unavailable Pleskach, Kate CLIPPER OPERATOR Unavailable Unavailable Pleskach, Kate CLIPPER OPERATOR Unavailable Unavailable Pleskach, Kate CLIPPER OPERATOR Unavailable Unavailable Pleskach, Kate CLIPPER OPERATOR Unavailable Unavailable Pleskach, Kate CLIPPER OPERATOR Unavailable Unavailable Pleskach, Kate CLIPPER OPERATOR Unavailable Unavailable Pleskach, Kate CLIPPER OPERATOR Unavailable Unavailable Corral, M Barratt PA Unavailable Unavailable Corral, M Barratt PA Unavailable Unavailable Corral, M Barratt PA Unavailable Unavailable Corral, M Barratt PA Unavailable Unavailable Corral, M Barratt PA Unavailable Unavailable Corral, M Barratt PA Unavailable Unavailable Corral, M Barratt PA Unavailable Unavailable Corral, M Barratt PA Unavailable Unavailable Corral, M Barratt PA Unavailable Unavailable Corral, M Barratt PA Unavailable Unavailable Corral, M Barratt PA Unavailable Unavailable Corral, M Barratt PA Unavailable Unavailable Corral, M Barratt PA Unavailable Unavailable Corral, M Barratt PA Unavailable Unavailable Corral, M Barratt PA Unavailable Unavailable Corral, M Barratt PA Unavailable Unavailable Corral, M Barratt PA Unavailable Unavailable Corral, M Barratt PA Unavailable Unavailable Corral, M Barratt PA Unavailable Unavailable Corral, M Barratt PA Unavailable Unavailable Corral, M Barratt PA Unavailable Unavailable Corral, M Barratt PA Unavailable Unavailable Corral, M Barratt PA Unavailable Unavailable Corral, M Barratt PA Unavailable Unavailable Corral, M Barratt PA Unavailable Unavailable Corral, M Barratt PA Unavailable Unavailable Corral, M Barratt PA Unavailable Unavailable Stephon Hay MD Unavailable Unavailable Stephon Hay MD Unavailable Unavailable Stephon Hay MD Unavailable Unavailable Stephon Hay MD Unavailable Unavailable Stephon Hay MD Unavailable Unavailable Stephon Hay MD Unavailable Unavailable Stephon Hay MD Unavailable Unavailable Stephon Hay MD Unavailable Unavailable Stephon Hay MD Unavailable Unavailable Stephon Hay MD Unavailable Unavailable Stephon Hay MD Unavailable Unavailable Stephon Hay MD Unavailable Unavailable Stephon Hay MD Unavailable Unavailable Stephon Hay MD Unavailable Unavailable Stephon Hay MD Unavailable Unavailable Stephon Hay MD Unavailable Unavailable Stephon Hay MD Unavailable Unavailable Stephon Hay MD Unavailable Unavailable Stephon Hay MD Unavailable Unavailable Stephon Hay MD Unavailable Unavailable Stephon Hay MD Unavailable Unavailable Stephon Hay MD Unavailable Unavailable Stephon Hay MD Unavailable Unavailable Stephon Hay MD Unavailable Unavailable Stephon Hay MD Unavailable Unavailable Stephon Hay MD Unavailable Unavailable Stephon Hay MD Unavailable Unavailable Stephon Hay MD Unavailable Unavailable Stephon Hay MD Unavailable Unavailable Satnam, A Dolores MD Unavailable Unavailable Satnam, A Dolores MD Unavailable Unavailable Satnam, A Dolores MD Unavailable Unavailable Satnam, A Dolores MD Unavailable Unavailable Satnam, A Dolores MD Unavailable Unavailable Satnma, A Dolores MD Unavailable Unavailable Satnam, A Dolores MD Unavailable Unavailable Satnam, A Dolores MD Unavailable Unavailable Satnam, A Dolores MD Unavailable Unavailable Satnam, A Dolores MD Unavailable Unavailable Satnam, A Dolores MD Unavailable Unavailable Satnam, A Dolores MD Unavailable Unavailable Satnam, A Dolores MD Unavailable Unavailable Satnam, A Dolores MD Unavailable Unavailable Satnam, A Dolores MD Unavailable Unavailable Satnam, A Odlores MD Unavailable Unavailable Satnam, A Dolores MD Unavailable Unavailable Satnam, A Dolores MD Unavailable Unavailable Satnam, A Dolores MD Unavailable Unavailable Satnam, A Dolores MD Unavailable Unavailable Satnam, A Dolores MD Unavailable Unavailable Satnam, A Dolores MD Unavailable Unavailable Satnam, A Dolores MD Unavailable Unavailable Satnam, A Dolores MD Unavailable Unavailable Satnam, A Dolores MD Unavailable Unavailable Satnam, A Dolores MD Unavailable Unavailable Satnam, A Dolores MD Unavailable Unavailable Satnam, A Dolores MD Unavailable Unavailable Satnam, A Dolores MD Unavailable Unavailable Satnam, A Dolores MD Unavailable Unavailable Satnam, A Dolores MD Unavailable Unavailable Satnam, A Dolores MD Unavailable Unavailable Satnam, A Dolores MD Unavailable Unavailable Satnam, A Dolores MD Unavailable Unavailable Satnam, A Dolores MD Unavailable Unavailable Satnam, A Dolores MD Unavailable Unavailable Satnam, A Dolores MD Unavailable Unavailable Satnam, A Dolores MD Unavailable Unavailable Satnam, A Dolores MD Unavailable Unavailable Satnam, A Dolores MD Unavailable Unavailable Satnam, A Dolores MD Unavailable Unavailable Satnam, A Dolores MD Unavailable Unavailable Satnam, A Dolores MD Unavailable Unavailable Satnam, A Dolores MD Unavailable Unavailable Satnam, A Dolores MD Unavailable Unavailable Satnam, A Dolores MD Unavailable Unavailable Re-disclosure Warning The records that you are about to access may contain information from federally-assisted alcohol or drug abuse programs. If such information is present, then the following federally mandated warning applies: This information has been disclosed to you from records protected by federal confidentiality rules (42 CFR part 2). The federal rules prohibit you from making any further disclosure of this information unless further disclosure is expressly permitted by the written consent of the person to whom it pertains or as otherwise permitted by 42 CFR part 2. A general authorization for the release of medical or other information is NOT sufficient for this purpose. The Federal rules restrict any use of the information to criminally investigate or prosecute any alcohol or drug abuse patient.The records that you are about to access may contain highly sensitive health information, the redisclosure of which is protected by Article 27-F of the [facility] Public Health law. If you continue you may have access to information: Regarding HIV / AIDS; Provided by facilities licensed or operated by the [facility] Office of Mental Health; or Provided by the [facility] Office for People With Developmental Disabilities. If such information is present, then the following [facility] mandated warning applies: This information has been disclosed to you from confidential records which are protected by state law. State law prohibits you from making any further disclosure of this information without the specific written consent of the person to whom it pertains, or as otherwise permitted by law. Any unauthorized further disclosure in violation of state law may result in a fine or care home sentence or both. A general authorization for the release of medical or other information is NOT sufficient authorization for further disc losure. Family History Family Member Name Family Member Gender Family Member Status Date o f Status Description Data Source(s) Unknown Female Problem (finding) 07/20/2017 12:00:00 AM EDT [facility] ([facility]) Unknown Female Problem (finding) 07/20/2017 12:00:00 AM EDT [facility] ([facility]) Encounters Encounter Providers Location Date Indications Data Source(s ) Office Visit Attender: Abdulaziz OGLESBY Physical Therapy 09:30:00 AM EST [facility] ([facility]) OFFICE OUTPATIENT VISIT 15 MINUTES Attender: Abdulaziz OGLESBY Physical Therapy 04/12/2020 01:00:00 PM EST [facility] ([facility]) Attender: DONIS REEVES [facility] 04/02/2020 07:07:00 PM EST - 04/02/2020 07:07:00 PM EST [facility] ( [facility]) Outpatient Attender: Kate Tineo [facility] Main Office 03/05/2020 0 2:15:00 PM EST [facility] ([facility] Outpatient Attender: [facility] MD Main Office 02/07/2020 10:30:0 0 AM EST [facility] ([facility] Office Visit Attender: Abdulaziz OGLESBY Physical Therapy 09:00:00 AM EDT [facility] ([facility]) Office Visit Attender: Abdulaziz OGLESBY Physical Therapy 08:45:00 AM EDT [facility] ([facility]) Outpatient Referrer: Dolores Hay MD 08/28/2019 08:56:00 AM EDT [facility] Outpatient Referrer: Dolores Hay MD 08/28/2019 08:56:00 AM EDT [facility] Outpatient Attender: Dolores Hay MD Main Office 08/07/2019 02:15:0 0 PM EDT [facility] ([facility] 05/29/2019 12:43:00 PM EDT - 020 12:43:00 PM EDT [facility] ([facility]) Outpatient Attender: Kate Tineo [facility] Main Office 03/29/2019 0 3:30:00 PM EST [facility] ([facility] Medications Medication Brand Name Start Date Product Form Dose Route Admi nistrative Instructions Pharmacy Instructions Status Indications Reaction Description Data Source(s) 2 ML Sodium Hyaluronate 10 MG/ML Prefilled Syringe [Euflexxa ] Euflexxa 05/07/2020 12:00:00 AM EST active [facility] ([facility]) Clindamycin 150 MG Oral Capsule CLINDAMYCIN HCL 03/05/2020 12:00 :00 AM EST capsule 28 TAKE ONE CAPSULE BY MOUTH EVERY 6 HOURS FOR 7 DAYS TAKE ONE CAPSULE BY MOUTH EVERY 6 HOURS FOR 7 DAYS SOLD: 03/05/2020 [facility] Clindamycin 150 MG Oral Capsule Clindamycin HCL 03/05/2020 12:00:00 A M EST active [facility] ([facility] 100 mg 11/08/2019 12:00:00 AM EDT capsule 270 TAKE ONE CAPSULE BY MOUTH THREE TIMES A DAY, MAXIMUM DAILY DOSE = 3 TAKE ONE CAPSULE BY MOUTH THREE TIMES A DAY, MAXIMUM DAILY DOSE = 3 SOLD: 02/08/2020 [facility] 100 mg 11/08/2019 12:00:00 AM EDT capsule 270 TAKE ONE CAPSULE BY MOUTH THREE TIMES A DAY, MAXIMUM DAILY DOSE = 3 TAKE ONE CAPSULE BY MOUTH THREE TIMES A DAY, MAXIMUM DAILY DOSE = 3 SOLD: 11/09/2019 [facility] 100 mg 11/08/2019 12:00:00 AM EDT capsule 270 TAKE ONE CAPSULE BY MOUTH THREE TIMES A DAY, MAXIMUM DAILY DOSE = 3 TAKE ONE CAPSULE BY MOUTH THREE TIMES A DAY, MAXIMUM DAILY DOSE = 3 SOLD: 05/07/2020 [facility] 20 mg 11/07/2019 12:00:00 AM EDT capsule,delayed release (DR/EC) 90 TAKE ONE CAPSULE BY MOUTH EVERY DAY NEEDED TAKE ONE CAPSULE BY MOUTH EVERY DAY NEEDED SOLD: 11/08/2019 [facility] 20 mg 11/07/2019 12:00:00 AM EDT capsule,delayed release (DR/EC) 90 TAKE ONE CAPSULE BY MOUTH EVERY DAY NEEDED TAKE ONE CAPSULE BY MOUTH EVERY DAY NEEDED SOLD: 05/07/2020 [facility] 20 mg 11/07/2019 12:00:00 AM EDT capsule,delayed release (DR/EC) 90 TAKE ONE CAPSULE BY MOUTH EVERY DAY NEEDED TAKE ONE CAPSULE BY MOUTH EVERY DAY NEEDED SOLD: 02/07/2020 [facility] 100 mg 10/03/2019 12:00:00 AM EDT capsule 180 TAKE ONE CAPSULE BY MOUTH THREE TIMES A DAY MAXIMUM DAILY DOSE = 3 TAKE ONE CAPSULE BY MOUTH THREE TIMES A DAY MAXIMUM DAILY DOSE = 3 SOLD: 10/05/2019 [facility] 20 mg 09/09/2019 12:00:00 AM EDT tablet 90 TAKE ONE TABLET BY MOUTH EVERY DAY TAKE ONE TABLET BY MOUTH EVERY DAY SOLD: 09/11/2019 [facility] 20 mg 09/09/2019 12:00:00 AM EDT tablet 90 TAKE ONE TABLET BY MOUTH EVERY DAY TAKE ONE TABLET BY MOUTH EVERY DAY SOLD: 03/08/2020 [facility] 20 mg 09/09/2019 12:00:00 AM EDT tablet 90 TAKE ONE TABLET BY MOUTH EVERY DAY TAKE ONE TABLET BY MOUTH EVERY DAY SOLD: 12/09/2019 [facility] 75 mcg 08/04/2019 12:00:00 AM EDT tablet 90 TAKE ONE TABLET BY MOUTH EVERY DAY TAKE ONE TABLET BY MOUTH EVERY DAY SOLD: 11/08/2019 [facility] 75 mcg 08/04/2019 12:00:00 AM EDT tablet 90 TAKE ONE TABLET BY MOUTH EVERY DAY TAKE ONE TABLET BY MOUTH EVERY DAY SOLD: 02/07/2020 [facility] 75 mcg 08/04/2019 12:00:00 AM EDT tablet 90 TAKE ONE TABLET BY MOUTH EVERY DAY TAKE ONE TABLET BY MOUTH EVERY DAY SOLD: 05/07/2020 [facility] 5 mg 08/04/2019 12:00:00 AM EDT tablet 90 TAKE ONE TABLET BY MOUTH EVERY DAY TAKE ONE TABLET BY MOUTH EVERY DAY SOLD: 08/09/2019 [facility] 5 mg 08/04/2019 12:00:00 AM EDT tablet 90 TAKE ONE TABLET BY MOUTH EVERY DAY TAKE ONE TABLET BY MOUTH EVERY DAY SOLD: 11/08/2019 [facility] 5 mg 08/04/2019 12:00:00 AM EDT tablet 90 TAKE ONE TABLET BY MOUTH EVERY DAY TAKE ONE TABLET BY MOUTH EVERY DAY SOLD: 02/07/2020 [facility] 5 mg 08/04/2019 12:00:00 AM EDT tablet 90 TAKE ONE TABLET BY MOUTH EVERY DAY TAKE ONE TABLET BY MOUTH EVERY DAY SOLD: 05/07/2020 [facility] 75 mcg 08/04/2019 12:00:00 AM EDT tablet 90 TAKE ONE TABLET BY MOUTH EVERY DAY TAKE ONE TABLET BY MOUTH EVERY DAY SOLD: 08/09/2019 [facility] 50 mcg/actuation 06/08/2019 12:00:00 AM EDT spray,suspension 16 SPRAY 1 SPRAY IN EACH NOSTRIL TWO TIMES A DAY SPRAY 1 SPRAY IN EACH NOSTRIL TWO TIMES A DAY SOLD: 06/08/2019 [facility] Fluticasone Propionate Fluticasone Propionate 06/08/2019 12:00:00 AM E DT active [facility] ([facility] 200 ACTUAT Albuterol 0.09 MG/ACTUAT Metered Dose Inhaler [Pr oAir] Proair HFA 06/08/2019 12:00:00 AM EDT RESPIRATORY active [facility] ([facility] 90 mcg/actuation 06/08/2019 12:00:00 AM EDT HFA aerosol inha ler 25 INHALE 2 PUFFS BY MOUTH EVERY 4 HOURS NEEDED FOR COUGH INHALE 2 PUFFS BY MOUTH EVERY 4 HOURS NEEDED FOR COUGH SOLD: 06/08/2019 [facility] Clindamycin 150 MG Oral Capsule Clindamycin HCL 03/29/2019 12:00:00 A M EST completed [facility] ([facility] 150 mg 03/29/2019 12:00:00 AM EST capsule 28 TAKE ONE CAPSULE BY MOUTH EVERY 6 HOURS FOR 7 DAYS TAKE ONE CAPSULE BY MOUTH EVERY 6 HOURS FOR 7 DAYS BRIANDA [facility] 20 mg 01/06/2019 12:00:00 AM EDT tablet 90 TAKE ONE TABLET BY MOUTH EVERY DAY TAKE ONE TABLET BY MOUTH EVERY DAY SOLD: 03/21/2019 [facility] 20 mg 01/06/2019 12:00:00 AM EDT tablet 90 TAKE ONE TABLET BY MOUTH EVERY DAY TAKE ONE TABLET BY MOUTH EVERY DAY SOLD: 06/13/2019 [facility] 100 mg 11/01/2018 12:00:00 AM EDT capsule 90 TAKE ONE CAPSULE BY MOUTH EVERY DAY IN THE MORNING TAKE ONE CAPSULE BY MOUTH EVERY DAY IN THE MORNING BRIANDA [facility] 100 mg 11/01/2018 12:00:00 AM EDT capsule 90 TAKE ONE CAPSULE BY MOUTH EVERY DAY IN THE MORNING TAKE ONE CAPSULE BY MOUTH EVERY DAY IN THE MORNING BRIANDA [facility] 20 mg 10/27/2018 12:00:00 AM EDT capsule,delayed release (DR/EC) 90 TAKE ONE CAPSULE BY MOUTH EVERY DAY NEEDED TAKE ONE CAPSULE BY MOUTH EVERY DAY NEEDED SOLD: 08/09/2019 [facility] 20 mg 10/27/2018 12:00:00 AM EDT capsule,delayed release (DR/EC) 90 TAKE ONE CAPSULE BY MOUTH EVERY DAY NEEDED TAKE ONE CAPSULE BY MOUTH EVERY DAY NEEDED SOLD: 05/10/2019 [facility] 75 mcg 05/09/2018 12:00:00 AM EST tablet 90 TAKE ONE TABLET BY MOUTH EVERY DAY TAKE ONE TABLET BY MOUTH EVERY DAY SOLD: 05/10/2019 [facility] 5 mg 05/09/2018 12:00:00 AM EST tablet 90 TAKE ONE TABLET BY MOUTH EVERY DAY TAKE ONE TABLET BY MOUTH EVERY DAY SOLD: 05/10/2019 [facility] Insurance Providers Payer name Policy type / Coverage type Policy ID Covered libertarian ID Covered libertarian's relationship to hendricks Policy Hendricks Plan Information [facility] [id number] SP [id number] [facility] [id number] SP [id number] MEDICARE [id number] SP [id number] MEDICARE C [id number] S [id number] UMR O [id number] S [id number] [facility] [id number] SP [id number] () Workers Compensation [id number] Self [id number] Umr (pr) Medigap Part B [id number] Self Y1945 4826 Medicare Dme Supplies Medigap Part B [id number] Self [id number] [place] [id number] Self [id number] [employer] () Workers Compensation [id number] Self [id number] [employer] () Workers Compensation [id number] Self [id number] Umr (pr) Medigap Part B [id number] Self Y1945 4826 Medicare Dme Supplies Medigap Part B [id number] Self [id number] [place] [id number] Self [id number] [employer] () Workers Compensation [id number] Self [id number] Umr (pr) Medigap Part B [id number] Self Y1945 4826 Medicare Dme Supplies Medigap Part B [id number] Self [id number] [place] Primary [id number] Self [id number] Umr Medigap Part B [id number] Self Y1945 4826 [place] Primary [id number] Self [id number] UMR .[id number] [employer] .[id number] Medicare .[id number] Medicare Part B .[id number] [employer] () Workers Compensation [id number] Self [id number] Umr (pr) Medigap Part B [id number] Self Y1945 4826 Medicare Dme Supplies Medigap Part B [id number] Self [id number] [place] [id number] Self [id number] [employer] () Workers Compensation [id number] Self [id number] Umr (pr) Medigap Part B [id number] Self Y1945 4826 Medicare Dme Supplies Medigap Part B [id number] Self [id number] [place] [id number] Self [id number] [employer] () Workers Compensation [id number] Self [id number] Umr (pr) Medigap Part B [id number] Self Y1945 4826 Medicare Dme Supplies Medigap Part B [id number] Self [id number] [place] [id number] Self [id number] [employer] () Workers Compensation [id number] Self [id number] Umr (pr) Medigap Part B [id number] Self Y1945 4826 Medicare Dme Supplies Medigap Part B [id number] Self [id number] [place] [id number] Self [id number] Umr Medigap Part B [id number] Self Y1945 4826 [place] Primary [id number] Self [id number] DME Jurisdiction A [facility] C [id number] SELF [id number] Medicare C [id number] SELF [id number] [employer] () Workers Compensation [id number] Self [id number] Umr (pr) Medigap Part B [id number] Self Y1945 4826 Medicare Dme Supplies Medigap Part B [id number] Self [id number] [place] [id number] Self [id number] [employer] () Workers Compensation [id number] Self [id number] Umr (pr) Medigap Part B [id number] Self Y1945 4826 Medicare Dme Supplies Medigap Part B [id number] Self [id number] [place] [id number] Self [id number] MEDICARE C [id number] S [id number] A Umr Commercial [id number] Self [id number] [place] Primary [id number] Self [id number] MEDICARE [id number] SP [id number] A [employer] [id number] SP [id number] [employer] () Workers Compensation [id number] Self [id number] Umr (pr) Medigap Part B [id number] Self Y1945 4826 Medicare Dme Supplies Medigap Part B [id number] Self [id number] [place] Primary [id number] Self [id number] [employer] () Workers Compensation [id number] Self [id number] Umr (pr) Medigap Part B [id number] Self Y1945 4826 Medicare Dme Supplies Medigap Part B [id number] Self [id number] [place] [id number] Self [id number] Umr Medigap Part B [id number] Self Y1945 4826 [place] Primary [id number] Self [id number] [employer] [id number] Self [id number] [employer] Medigap Part B [id number] Self [id number] [place] Medicare Primary [id number] Self [id number] [employer] () Workers Compensation [id number] Self [id number] Medicare Dme Supplies Medigap Part B [id number] Self [id number] [place] Primary [id number] Self [id number] [employer] (pr) Medigap Part B [id number] Self [id number] [employer] Medigap Part B [id number] Self [id number] [place] Medicare Primary [id number] Self [id number] [employer] () Workers Compensation [id number] Self [id number] Medicare Dme Supplies Medigap Part B [id number] Self [id number] [place] Primary [id number] Self [id number] [employer] Medigap Part B [id number] Self [id number] [place] Medicare Primary [id number] Self [id number] [employer] Medigap Part B [id number] Self [id number] [place]/NGS Medicare Primary [id number] Self [id number] [employer] Medigap Part B [id number] Self [id number] Medicare [employer] Medicare Primary [id number] Self [id number] [employer] () Workers Compensation [id number] Self [id number] Medicare Dme Supplies Medigap Part B [id number] Self [id number] [place] Primary [id number] Self [id number] [employer] () Workers Compensation [id number] Self [id number] Medicare Dme Supplies Medigap Part B [id number] Self [id number] [place] Primary [id number] Self [id number] [employer] () Workers Compensation [id number] Self [id number] Medicare Dme Supplies Medigap Part B [id number] Self [id number] [place] Primary [id number] Self [id number] [employer] () Workers Compensation [id number] Self [id number] Medicare Dme Supplies Medigap Part B [id number] Self [id number] [place] Primary [id number] Self [id number] [employer] Medigap Part B [id number] Self [id number] [place] Primary [id number] Self [id number] [employer] () Workers Compensation [id number] Self [id number] Medicare Dme Supplies Medigap Part B [id number] Self [id number] [place] Primary [id number] Self [id number] [employer] Medigap Part B [id number] Self [id number] [place] Medicare Primary [id number] Self [id number] [employer] () Workers Compensation [id number] Self [id number] Medicare Dme Supplies Medigap Part B [id number] Self [id number] [place] Primary [id number] Self [id number] [employer] () Workers Compensation [id number] Self [id number] Medicare Dme Supplies Medigap Part B [id number] Self [id number] [place] Primary [id number] Self [id number] [employer] Medigap Part B [id number] Self [id number] [place] Medicare Primary [id number] Self [id number] [employer] () Workers Compensation [id number] Self [id number] Medicare Dme Supplies Medigap Part B [id number] Self [id number] [place] Primary [id number] Self [id number] [employer] Medigap Part B [id number] Self [id number] [place] Primary [id number] Self [id number] [employer] () Workers Compensation [id number] Self [id number] Medicare Dme Supplies Medigap Part B [id number] Self [id number] [place] Medicare Primary [id number] Self [id number] [employer] () Workers Compensation [id number] Self [id number] [place] Primary [id number] Self [id number] [employer] (pr) Medigap Part B [id number] Self [id number] [employer] () Workers Compensation [id number] Self [id number] [place] Primary [id number] Self [id number] [employer] Medigap Part B [id number] Self [id number] [place] Primary [id number] Self [id number] [employer] PPO O [id number] S [id number] [employer] () Workers Compensation [id number] Self [id number] [place] Primary [id number] Self [id number] [employer] Medigap Part B [id number] Self [id number] [place] Primary [id number] Self [id number] [employer] Medigap Part B [id number] Self [id number] [place] Primary [id number] Self [id number] [employer] () Workers Compensation [id number] Self [id number] [place] Primary [id number] Self [id number] [employer] () Workers Compensation [id number] Self [id number] [place] Primary [id number] Self [id number] [employer] () Workers Compensation [id number] Self [id number] [place] Primary [id number] Self [id number] [employer] () Workers Compensation [id number] Self [id number] [place] Primary [id number] Self [id number] [employer] (pr) Medigap Part B Self Medicare [facility] Medicare Primary Self [employer] Medigap Part B Self Medicare [facility] Medicare Primary Self [employer] (pr) Medigap Part B Self [employer] Medigap Part B Self Medicare [facility] Medicare Primary Self MEDICARE A [id number] Self [id number] [employer] U [id number] Self [id number] Surgeries/Procedures Procedure Description Date Indications Data Source(s) ARTHROCENTESIS ASPIR&/INJECTION MAJOR JT/BURSA 021 12:00:00 AM EST [facility] ([facility] ARTHROCENTESIS ASPIR&/INJECTION MAJOR JT/BURSA 021 12:00:00 AM EST [facility] ([facility] ) RADEX SHOULDER COMPLETE MINIMUM 2 VIEWS 04/12/2020 12: 00:00 AM EST [facility] ([facility] ) ARTHROCENTESIS ASPIR&/INJECTION MAJOR JT/BURSA 12:00:00 AM EDT [facility] ([facility] ) ARTHROCENTESIS ASPIR&/INJECTION MAJOR JT/BURSA 12:00:00 AM EDT [facility] ([facility] ) ARTHROCENTESIS ASPIR&/INJECTION MAJOR JT/BURSA 07/13/2 020 12:00:00 AM EDT [facility] ([facility]) Mammogram 09/21/2019 12:00:00 AM EDT M [facility] ([facility] Document: 09/17/17 - [facility] Radiology Digit [place] ARTHROCENTESIS ASPIR&/INJECTION MAJOR JT/BURSA 020 12:00:00 AM EST [facility] ([facility]) ARTHROCENTESIS ASPIR&/INJECTION MAJOR JT/BURSA 019 12:00:00 AM EST [facility] ([facility]) Results ID Date Data Source [id number] 01/31/2020 08:44:00 AM EST [facility] ([facility] Name Value Range Interpretation Code Description Data Mercedes rce(s) Supporting Document(s) Bilirubin.conjugated [Mass/volume] in Serum or Plasma 0.10 mg/dL 0.00 -0.40 [facility] ([facility] ID Date Data Source [id number] 01/31/2020 08:44:00 AM EST [facility] ([facility] Name Value Range Interpretation Code Description Data Mercedes rce(s) Supporting Document(s) Thyroxine (T4) Free, Direct, S 1.41 ng/dL 0.82-1.77 [facility] ([facility] ID Date Data Source [id number] 01/31/2020 08:44:00 AM EST [facility] ([facility] Name Value Range Interpretation Code Description Data Mercedes rce(s) Supporting Document(s) Glucose [Mass/volume] in Serum or Plasma 87 mg/dL 65-99 [facility] ([facility] Urea nitrogen [Mass/volume] in Serum or Plasma 22 mg/dL 8-27 [facility] ([facility] Creatinine [Mass/volume] in Serum or Plasma 0.89 mg/dL 0.57-1.00 [facility] eGFR If NonAfricn Am 62 mL/min/1.73 [facility] ([facility] eGFR If Africn Am 71 mL/min/1.73 [facility] ([facility] Sodium [Moles/volume] in Serum or Plasma 140 mmol/L 134-144 [facility] ([facility] Urea nitrogen/Creatinine [Mass Ratio] in Serum or Plasma 25 1 2-28 [facility] ([facility] Potassium [Moles/volume] in Serum or Plasma 4.5 mmol/L 3.5-5.2 [facility] ([facility] Carbon dioxide, total [Moles/volume] in Serum or Plasma 25 mmol/L 20 -29 [facility] ([facility] Chloride [Moles/volume] in Serum or Plasma 103 mmol/L 96-106 [facility] ([facility] Protein, Total 6.6 g/dL 6.0-8.5 [facility] ([facility] Calcium [Mass/volume] in Serum or Plasma 9.3 mg/dL 8.7-10.3 [facility] ([facility] Albumin [Mass/volume] in Serum or Plasma 4.0 g/dL 3.7-4.7 [facility] ([facility] Bilirubin.total [Mass/volume] in Serum or Plasma 0.3 mg/dL 0.0-1.2 [facility] ([facility] Albumin/Globulin [Mass Ratio] in Serum or Plasma 1.5 1.2-2.2 [facility] ([facility] Globulin [Mass/volume] in Serum by calculation 2.6 g/dL 1.5-4.5 [facility] ([facility] Aspartate aminotransferase [Enzymatic activity/volume] in Serum or Plasma 19 IU/L 0-40 [facility] Alkaline phosphatase [Enzymatic activity/volume] in Serum or Plasma 95 IU/L 39-117 [facility] Alanine aminotransferase [Enzymatic activity/volume] in Seru m or Plasma 16 IU/L 0-32 [facility] ([facility] ID Date Data Source [id number] 01/31/2020 08:44:00 AM EST [facility] ([facility] Name Value Range Interpretation Code Description Data Mercedes rce(s) Supporting Document(s) Thyrotropin [Units/volume] in Serum or Plasma 1.700 uIU/mL 0.450-4.50 0 [facility] ID Date Data Source [id number] 01/31/2020 08:44:00 AM EST [facility] ([facility] Name Value Range Interpretation Code Description Data Mercedes rce(s) Supporting Document(s) Leukocytes [#/volume] in Blood by Automated count 7.2 x10E3/uL 3.4-10 .8 [facility] ([facility] Erythrocytes [#/volume] in Blood by Automated count 4.61 x10E6/uL 3.7 7-5.28 [facility] ([facility] Hemoglobin [Mass/volume] in Blood 13.7 g/dL 11.1-15.9 [facility] ([facility] Hematocrit [Volume Fraction] of Blood by Automated count 41.5 % 3 4.0-46.6 [facility] ([facility] Erythrocyte mean corpuscular volume [Entitic volume] by Auto mated count 90 fL 79-97 [facility] ([facility] Erythrocyte mean corpuscular hemoglobin [Entitic mass] by Automated count 29.7 pg 26.6-33.0 [facility] ([facility] Erythrocyte mean corpuscular hemoglobin concentration [Mass/volume] by Automated count 33.0 g/dL 31.5-35.7 [facility] ([facility] Platelets [#/volume] in Blood by Automated count 326 x10E3/uL 150-450 [facility] ([facility] Erythrocyte distribution width [Ratio] by Automated count 12.6 % 11.7-15.4 [facility] ([facility] Neutrophils 60 % [facility] Eosinophils/100 leukocytes in Blood by Automated count 1 % [facility] Lymphocytes/100 leukocytes in Blood by Automated count 30 % [facility] Monocytes/100 leukocytes in Blood by Automated count 8 % [facility] Neutrophils [#/volume] in Blood by Automated count 4.3 x10E3/uL 1.4-7 .0 [facility] Basophils/100 leukocytes in Blood by Automated count 1 % [facility] Immature cells [#/volume] in Blood Laboratory test result [facility] ([facility] Monocytes [#/volume] in Blood 0.6 x10E3/uL 0.1-0.9 [facility] ([facility] Eosinophils [#/volume] in Blood by Automated count 0.1 x10E3/uL 0.0-0 .4 [facility] Lymphocytes [#/volume] in Blood 2.2 x10E3/uL 0.7-3.1 [facility] ([facility] Immature granulocytes [#/volume] in Blood by Automated count 0.0 x10E3/uL 0.0-0.1 [facility] ([facility] Basophils [#/volume] in Blood by Automated count 0.1 x10E3/uL 0.0-0.2 [facility] ([facility] Immature granulocytes/100 leukocytes in Blood by Automated count 0 % [facility] Morphology [Interpretation] in Blood Narrative Laboratory test result [facility] ([facility] Nucleated erythrocytes/100 leukocytes [Ratio] in Blood by Automated count Laboratory test result [facility] ([facility] ID Date Data Source [id number] 02/01/2020 03:05:00 AM EST [facility] Name Value Range Interpretation Code Description Data Mercedes rce(s) Supporting Document(s) WBC 7.2 x10E3/uL 3.4-10.8 [facility] RBC 4.61 x10E6/uL 3.77-5.28 [facility] Hemoglobin 13.7 g/dL 11.1-15.9 [facility] Hematocrit 41.5 % 34.0-46.6 [facility] MCV 90 fL 79-97 [facility] MCH 29.7 pg 26.6-33.0 [facility] MCHC 33.0 g/dL 31.5-35.7 [facility] RDW 12.6 % 11.7-15.4 [facility] Platelets 326 x10E3/uL 150-450 [facility] Neutrophils 60 % Not Estab. [facility] Lymphs 30 % Not Estab. [facility] Monocytes 8 % Not Estab. [facility] Eos 1 % Not Estab. [facility] Basos 1 % Not Estab. [facility] Neutrophils (Absolute) 4.3 x10E3/uL 1.4-7.0 [facility] Lymphs (Absolute) 2.2 x10E3/uL 0.7-3.1 [facility] Monocytes(Absolute) 0.6 x10E3/uL 0.1-0.9 [facility] Eos (Absolute) 0.1 x10E3/uL 0.0-0.4 [facility] Baso (Absolute) 0.1 x10E3/uL 0.0-0.2 [facility] Immature Granulocytes 0 % Not Estab. [facility] Immature Grans (Abs) 0.0 x10E3/uL 0.0-0.1 [facility] ID Date Data Source [id number] 02/01/2020 05:05:00 AM EST [facility] Name Value Range Interpretation Code Description Data Mercedes rce(s) Supporting Document(s) Glucose 87 mg/dL 65-99 [facility] BUN 22 mg/dL 8-27 [facility] Creatinine 0.89 mg/dL 0.57-1.00 [facility] eGFR If NonAfricn Am 62 mL/min/1.73 >59 [facility] eGFR If Africn Am 71 mL/min/1.73 >59 [facility] BUN/Creatinine Ratio 25 12-28 [facility] Sodium 140 mmol/L 134-144 [facility] Potassium 4.5 mmol/L 3.5-5.2 [facility] Chloride 103 mmol/L 96-106 [facility] Carbon Dioxide, Total 25 mmol/L 20-29 [facility] Calcium 9.3 mg/dL 8.7-10.3 [facility] Protein, Total 6.6 g/dL 6.0-8.5 [facility] Albumin 4.0 g/dL 3.7-4.7 [facility] Globulin, Total 2.6 g/dL 1.5-4.5 [facility] A/G Ratio 1.5 1.2-2.2 [facility] Bilirubin, Total 0.3 mg/dL 0.0-1.2 [facility] Alkaline Phosphatase 95 IU/L 39-117 [facility] AST (SGOT) 19 IU/L 0-40 [facility] ALT (SGPT) 16 IU/L 0-32 [facility] ID Date Data Source [id number] 02/01/2020 06:06:00 AM EST [facility] Name Value Range Interpretation Code Description Data Mercedes rce(s) Supporting Document(s) T4,Free(Direct) 1.41 ng/dL 0.82-1.77 [facility] ID Date Data Source [id number] 02/01/2020 08:08:00 AM EST [facility] Name Value Range Interpretation Code Description Data Mercedes rce(s) Supporting Document(s) Bilirubin, Direct 0.10 mg/dL 0.00-0.40 [facility] ID Date Data Source [id number] 02/01/2020 06:06:00 AM EST [facility] Name Value Range Interpretation Code Description Data Mercedes rce(s) Supporting Document(s) TSH 1.700 uIU/mL 0.450-4.500 [facility] ID Date Data Source [id number] 09/21/2019 12:00:00 AM EDT [facility] MD Patient Name: DEYVI PARDO [id number] Date of : 1940[place] [address] Date of Exam: 09/21/2019#: Fax: [phone] EXAM: MAMMO SCREENING WITH CADCLINICAL INFORMATION: Screening examination. She has no current complaint,personal or family history of breast cancer.COMPARISON: 09/19/2018, 09/20/2009.Digital screening (2D) mammography was performed bilaterally in the CC andMLO projections. Additionally, breast tomosynthesis (3D mammography) wasperformed bilaterally in the CC and MLO projections.The Volpara volumetric breast density category is C, the breasts areheterogeneously dense which may obscure small masses.FINDINGS:Heterogenously dense fibroglandular elements in the retroareolar zone andmore in the upper outer quadrant than elsewhere but in a symmetric stablepattern. Benign arterial calcifications are seen in each breast.Large coarse calcifications are present, of no clinical significance.Scattered lymph nodes are seen in the axilla.Benign intramammary nodes are noted on the right.Because of the parenchymal density, consider adjunctive breast screeningMRI in addition to screening mammography.3D tomosynthesis images show no additional findings.IMPRESSION:BI-RADS Category 2 - Benign Finding(s). Stable mammogram. There is noevidence of malignant alteration of the breasts. Followup examinationrecommended in one year.This mammogram was read with the assistance of [employer], an FDAapproved computer aided detection system for mammography.Negative x-ray reports should not delay surgical consultation if a dominantor clinically suspicious mass is pr esent.Not all breast cancers can be identified by mammography. Therefore, werecommend that you continue to perform regular breast self-examination andphysical examination and then promptly contact your physician of anyconcerns or changes.Adenosis and dense breasts may obscure an underlying neoplasm.The patient states that a clinical breast examination was over a year ago.Based on the personal and family history information your patient suppliedat the time of imaging, her lifetime risk of breast cancer estimated by theTyrer-Cuzick model is 1.5%. Given that this patient has less than 20% TCrisk score, no further medical management is currently recommended at thistime.Your patient's personal and/or family history of cancer submitted at thetime of imaging is suggestive of a hereditary cancer syndrome. She meetsthe criteria for genetic testing established by National ComprehensiveCan[employer] Network and [place] [employer] guidelines. She should pursue arisk assessment with a hereditary cancer speci alist which may includetesting based on these criteria. The benefits and limitations of genetictesting would be discussed, including potential changes to medicalmanagement based on the results. Your patient declined myRisk genetictesting at this time.Shaun Sim, MICHAEL/Sukhwinder you for referring DEYVI PARDO to our office. Electronically Signed - SHAUN SIM MD 09/25/19 8:28 Name Value Range Interpretation Code Description Data Mercedes rce(s) Supporting Document(s) Procedure Social History Code Duration Value Status Description Data Source(s ) Smoking 08/07/2019 12:00:00 AM EDT Patient is a former smoker completed Patient is a former smoker [facility] Vital Signs ID Date Data Source [id number] Name Value Range Interpretation Code Description Data Source(s) Body mass index (BMI) [Ratio] 24.6 kg/m2 24.6 k g/m2 [facility] ([facility]) Body weight 130.00 [lb_av] 130.00 [lb_av] [facility] T ([facility]) Body height 61 [in_i] 61 [in_i] [facility] ([facility]) 5'1" Body temperature 96.9 [degF] 96.9 [degF] [facility] ([facility]) Body mass index (BMI) [Ratio] 25.2 kg/m2 25.2 k g/m2 [facility] Shaw body weight 105 [lb_av] 105 [lb_av] [facility] T ([facility] Oxygen saturation in Arterial blood by Pulse oximetry 99 % 99 % [facility] Body weight 135.38 [lb_av] 135.38 [lb_av] [facility] ([facility] Body height 61.50 [in_i] 61.50 [in_i] [facility] ([facility] 5'1.50" Respiratory rate 16 /min 16 /min [facility] ( [facility] Body temperature 97.5 [degF] 97.5 [degF] [facility] Heart rate 86 /min 86 /min MED[facility] ([facility] Diastolic blood pressure 80 mm[Hg] 80 mm[Hg] MEDENT ([facility] Systolic blood pressure 139 mm[Hg] 139 mm[Hg] M EDENT ([facility] Body mass index (BMI) [Ratio] 24.8 kg/m2 24.8 k g/m2 MEDENT ([facility] Shaw body weight 105 [lb_av] 105 [lb_av] MEDEN T ([facility] Oxygen saturation in Arterial blood by Pulse oximetry 97 % 97 % MEDENT ([facility] Body weight 133.50 [lb_av] 133.50 [lb_av] MEDEN T ([facility] Body height 61.50 [in_i] 61.50 [in_i] MEDENT ([facility] 5'1.50" Respiratory rate 20 /min 20 /min [facility] ( [facility] Body temperature 98.3 [degF] 98.3 [degF] [facility] ([facility] Heart rate 75 /min 75 /min [facility] ([facility] Diastolic blood pressure 71 mm[Hg] 71 mm[Hg] [facility] ([facility] Systolic blood pressure 140 mm[Hg] 140 mm[Hg] M [facility]ENT ([facility] Diastolic blood pressure 83 mm[Hg] 83 mm[Hg] [facility] ([facility] Systolic blood pressure 156 mm[Hg] 156 mm[Hg] [facility] Body mass index (BMI) [Ratio] 25.3 kg/m2 25.3 k g/m2 [facility] ([facility] [place] body weight 105 [lb_av] 105 [lb_av] [facility] T ([facility] Oxygen saturation in Arterial blood by Pulse oximetry 96 % 96 % [facility] ([facility] Body weight 136.00 [lb_av] 136.00 [lb_av] [facility] T ([facility] Body height 61.50 [in_i] 61.50 [in_i] [facility] ([facility] 5'1.50" Respiratory rate 16 /min 16 /min [facility] ( [facility] Body temperature 98.4 [degF] 98.4 [degF] [facility] ([facility] Heart rate 84 /min 84 /min [facility] ([facility] Diastolic blood pressure 72 mm[Hg] 72 mm[Hg] [facility] ([facility] Systolic blood pressure 138 mm[Hg] 138 mm[Hg] M EDENT ([facility]
[2020-05-17] MEDS ORDERED: ASPI-531 PO (10:57)
--- OUTSIDE RECORDS SUMMARY | 2020-05-17 11:00 | CCD ---
Author Author [facility] Organization [facility] Address Unknown Phone Unavailable Care Team Providers Care Human Relations Teacher Name Role Phone Stephon Hay MD Unavailable Unavailable Satnam, Stephon Bernal MD Unavailable Unavailable Stanam, Stephon Bernal MD Unavailable Unavailable Satnam, Stephon [...] Unavailable Satnam, Stephon Bernal MD Unavailable Unavailable Satanm, Stephon Bernal MD Unavailable Unavailable Satnam, Stephon [...] DONIS REEVES MD Unavailable Unavailable Pleskach, Kate CLINICAL INFORMATICS EDUCATOR Unavailable Unavailable Pleskach, Kate CLINICAL INFORMATICS EDUCATOR Unavailable Unavailable Pleskach, Kate CLINICAL INFORMATICS EDUCATOR Unavailable Unavailable Pleskach, Kate CLINICAL INFORMATICS EDUCATOR Unavailable Unavailable Pleskach, Kate CLINICAL INFORMATICS EDUCATOR Unavailable Unavailable Pleskach, Kate CLINICAL INFORMATICS EDUCATOR Unavailable Unavailable Pleskach, Kate CLINICAL INFORMATICS EDUCATOR Unavailable Unavailable Pleskach, Kate CLINICAL INFORMATICS EDUCATOR Unavailable Unavailable Pleskach, Kate CLINICAL INFORMATICS EDUCATOR Unavailable Unavailable Pleskach, Kate CLINICAL INFORMATICS EDUCATOR Unavailable Unavailable Pleskach, Kate CLINICAL INFORMATICS EDUCATOR Unavailable Unavailable Pleskach, Kate CLINICAL INFORMATICS EDUCATOR Unavailable Unavailable Pleskach, Kate CLINICAL INFORMATICS EDUCATOR Unavailable Unavailable Pleskach, Kate CLINICAL INFORMATICS EDUCATOR Unavailable Unavailable Pleskach, Kate CLINICAL INFORMATICS EDUCATOR Unavailable Unavailable Pleskach, Kate CLINICAL INFORMATICS EDUCATOR Unavailable Unavailable Pleskach, Kate CLINICAL INFORMATICS EDUCATOR Unavailable Unavailable Pleskach, Kate CLINICAL INFORMATICS EDUCATOR Unavailable Unavailable Pleskach, Kate CLINICAL INFORMATICS EDUCATOR Unavailable Unavailable Pleskach, Kate CLINICAL INFORMATICS EDUCATOR Unavailable Unavailable Pleskach, Kate CLINICAL INFORMATICS EDUCATOR Unavailable Unavailable Pleskach, Kate CLINICAL INFORMATICS EDUCATOR Unavailable Unavailable Pleskach, Kate CLINICAL INFORMATICS EDUCATOR Unavailable Unavailable Pleskach, Kate CLINICAL INFORMATICS EDUCATOR Unavailable Unavailable Pleskach, Kate CLINICAL INFORMATICS EDUCATOR Unavailable Unavailable Pleskach, Kate CLINICAL INFORMATICS EDUCATOR Unavailable Unavailable Pleskach, Kate CLINICAL INFORMATICS EDUCATOR Unavailable Unavailable Pleskach, Kate CLINICAL INFORMATICS EDUCATOR Unavailable Unavailable Pleskach, Kate CLINICAL INFORMATICS EDUCATOR Unavailable Unavailable Pleskach, Kate CLINICAL INFORMATICS EDUCATOR Unavailable Unavailable Corral, M Barratt PA Unavailable [...] Unavailable Satnam, A Dolores MD Unavailable Unavailable Santam, A Dolores MD Unavailable Unavailable Satnam, A [...] is protected by Article 27-F of the [facility] Public Health law. If you continue you may have access to information: Regarding HIV / AIDS; Provided by facilities licensed or operated by the [facility] Office of Mental Health; or Provided by the [facility] Office for People With Developmental Disabilities. If such information is present, then the following [facility] mandated warning applies: This information has [...] law may result in a fine or fpc sentence or both. A general authorization for [...] [facility] 09:30:00 AM EST [facility] ([facility]) OFFICE OUTPATIENT VISIT 15 MINUTES Attender: Abdulaziz [facility] Physical Therapy 04/12/2020 01:00:00 PM EST [facility] ([facility]) Attender: DON[facility]EEVES [facility] 04/02/2020 07:07:00 PM EST - 04/02/2020 07:07:00 PM EST [facility] ( [facility]) Outpatient Attender: Kate Tineo [facility] Main Office 03/05/2020 0 2:15:00 PM EST [facility] ([facility] Outpatient Attender: Dolores Hay MD Main Office 02/07/2020 10:30:0 0 AM EST [facility] ([facility] Office Visit Attender: Abdulaziz [facility]ESBY Physical Therapy 09:00:00 AM EDT [facility] ([facility]) Office Visit Attender: Abdulaziz OGLESBY Physical Therapy 08:45:00 AM EDT [facility] ([facility]) Outpatient Referrer: Dolores Hay MD 08/28/2019 08:56:00 AM EDT [facility] Outpatient Referrer: Dolores Hay MD 08/28/2019 08:56:00 AM EDT [facility] Outpatient Attender: Dolores Hay MD Main Office 08/07/2019 02:15:0 0 PM EDT [facility] ([facility] 05/29/2019 12:43:00 PM EDT - 020 12:43:00 PM EDT [facility] ([facility]) Outpatient Attender: Kate Tineo [facility] Main Office 03/29/2019 0 3:30:00 PM EST [facility] ([facility] Medications Medication Brand Name Start Date Product Form Dose Route Admi nistrative Instructions Pharmacy Instructions Status Indications Reaction Description Data Source(s) 2 ML Sodium Hyaluronate 10 MG/ML Prefilled Syringe [Euflexxa ] Euflexxa 05/07/2020 12:00:00 AM EST active [facility] ([facility]) Clindamycin 150 MG Oral Capsule [...] type / Coverage type Policy ID Covered constitution party ID Covered constitution party's relationship to hendricks Policy Hendricks Plan Information [facility] [id number] MEDICARE [id number] [facility] [id number] SP [id number] MEDICARE C [id number] S [id number] UMR O [id number] S [id number] UMR [facility] [id number] SP [id number] [employer] () Workers Compensation [id number] Self [id number] Umr (pr) Medigap Part B [id number] Self [id number] 4826 Medicare Dme Supplies Medigap Part B [id number] Self [id number] [place] [id number] Self [id number] [employer] () Workers Compensation [id number] Self [id number] [employer] () Workers Compensation [id number] Self [id number] Umr (pr) Medigap Part B [id number] Self Y1945 4826 Medicare Dme Supplies Medigap Part B [id number] Self [id number] [place] Primary [id number] Self [id number] [employer] () Workers Compensation [id number] Self [id number] Umr (pr) Medigap Part B [id number] Self Y1945 4826 Medicare Dme Supplies Medigap Part B [id number] Self [id number] [place] [id number] Self [id number] Umr Medigap Part B [id number] Self Y1945 4826 [place] Primary [id number] Self [id number] UMR .[id number] Commercial [employer]. .[id number] Medicare .[id number] Medicare Part B .[id number] [employer] () Workers Compensation [id number] Self [id number] Umr (pr) Medigap Part B [id number] Self Y1945 4826 Medicare Dme Supplies Medigap Part B [id number] Self [id number] [place] [id number] Self [id number] [employer] () Workers Compensation [id number] Self [id number] Umr (pr) Medigap Part B [id number] Self Y1945 4826 Medicare Dme Supplies Medigap Part B [id number] Self [id number] [place] Primary [id number] Self [id number] [employer] () Workers Compensation [id number] Self [id number] Umr (pr) Medigap Part B [id number] Self Y1945 4826 Medicare Dme Supplies Medigap Part B [id number] Self [id number] [place] Primary [id number] Self [id number] [employer] () Workers Compensation [id number] Self [id number] Umr (pr) Medigap Part B [id number] Self Y1945 4826 Medicare Dme Supplies Medigap Part B [id number] Self [id number] [place] [id number] Self [id number] Umr Medigap Part B [id number] Self Y1945 4826 [place] Primary [id number] Self [id number] DME Jurisdiction A [facility] C [id number] SELF [id number] Medicare C [id number] SELF [id number] [id number] [employer] () Workers Compensation [id number] Self [id number] Umr (pr) Medigap Part B [id number] Self Y1945 4826 Medicare Dme Supplies Medigap Part B [id number] Self [id number] [place] Primary [id number] Self [id number] [employer] () Workers Compensation [id number] Self [id number] Umr (pr) Medigap Part B [id number] Self Y1945 4826 Medicare Dme Supplies Medigap Part B [id number] Self [id number] [place] [id number] Self [id number] MEDICARE C [id number] S [id number] A Umr Commercial [id number] Self [id number] [place] Primary [id number] Self [id number] MEDICARE [id number] SP [id number] A [employer] [id number] SP [id number] [employer] () Workers Compensation [id number] Self [id number] Umr (pr) Medigap Part B [id number] Self Y1945 4826 Medicare Dme Supplies Medigap Part B [id number] Self [id number] [place] Primary [id number] Self [id number] [employer] () Workers Compensation [id number] Self [id number] Umr (pr) Medigap Part B [id number] Self Y1945 4826 Medicare Dme Supplies Medigap Part B [id number] Self [id number] [place] Primary [id number] Self [id number] Umr Medigap Part B [id number] Self Y1945 4826 [place] Medicare Primary [id number] Self [id number] [employer] [id number] Self [id number] [employer] Medigap Part B [id number] Self [id number] [place] Medicare Primary [id number] Self [id number] [employer] () Workers Compensation [id number] Self [id number] Medicare Dme Supplies Medigap Part B [id number] Self [id number] [place] Primary [id number] Self [id number] [employer] (pr) Medigap Part B [id number] Self [id number] [employer] Medigap Part B [id number] Self [id number] [place] Medicare Primary [id number] Self [id number] [employer] () Workers Compensation [id number] Self [id number] Medicare Dme Supplies Medigap Part B [id number] Self [id number] [place] Primary [id number] Self [id number] [employer] Medigap Part B [id number] Self [id number] [place] Medicare Primary [id number] Self [id number] [employer] Medigap Part B [id number] Self [id number] [place]/NGS Medicare Primary [id number] Self [id number] [employer] Medigap Part B [id number] Self [id number] Medicare Natl Gov't Servi Medicare Primary [id number] Self [id number] [employer] () Workers Compensation [id number] Self [id number] Medicare Dme Supplies Medigap Part B [id number] Self [id number] [place] Medicare Primary [id number] Self [id number] [employer] () Workers Compensation [id number] Self [id number] Medicare Dme Supplies Medigap Part B [id number] Self [id number] [place] Medicare Primary [id number] Self [id number] [employer] () Workers Compensation [id number] Self [id number] Medicare Dme Supplies Medigap Part B [id number] Self [id number] [place] Medicare Primary [id number] Self [id number] [employer] () Workers Compensation [id number] Self [id number] Medicare Dme Supplies Medigap Part B [id number] Self [id number] [place] Medicare Primary [id number] Self [id number] [employer] Medigap Part B [id number] Self [id number] [place] Medicare Primary [id number] Self [id number] [employer] () Workers Compensation [id number] Self [id number] Medicare Dme Supplies Medigap Part B [id number] Self [id number] [place] Medicare Primary [id number] Self [id number] [employer] Medigap Part B [id number] Self [id number] [place] Medicare Primary [id number] Self [id number] [employer] () Workers Compensation [id number] Self [id number] Medicare Dme Supplies Medigap Part B [id number] Self [id number] [place] Medicare Primary [id number] Self [id number] [employer] () Workers Compensation [id number] Self [id number] Medicare Dme Supplies Medigap Part B [id number] Self [id number] [place] Primary [id number] Self [id number] [employer] Medigap Part B [id number] Self [id number] [place] Medicare Primary [id number] Self [id number] [employer] () Workers Compensation [id number] Self [id number] Medicare Dme Supplies Medigap Part B [id number] Self [id number] [place] Medicare Primary [id number] Self [id number] [employer] Medigap Part B [id number] Self [id number] [place] Medicare Primary [id number] Self [id number] [employer] () Workers Compensation [id number] Self [id number] Medicare Dme Supplies Medigap Part B [id number] Self [id number] [place] Medicare Primary [id number] Self [id number] [employer] () Workers Compensation [id number] Self [id number] [place] Medicare Primary [id number] Self [id number] [employer] (pr) Medigap Part B [id number] Self [id number] [employer] () Workers Compensation [id number] Self [id number] [place] Medicare Primary [id number] Self [id number] [employer] Medigap Part B [id number] Self [id number] Medicare [place] Medicare Primary [id number] Self [id number] [employer] PPO O [id number] S [id number] [employer] () Workers Compensation [id number] Self [id number] [place] Medicare Primary [id number] Self [id number] [employer] Medigap Part B [id number] Self [id number] [place] Medicare Primary [id number] Self [id number] [employer] Medigap Part B [id number] Self [id number] [place] Medicare Primary [id number] Self [id number] [employer] () Workers Compensation [id number] Self [id number] [place] Medicare Primary [id number] Self [id number] [employer] () Workers Compensation [id number] Self [id number] Medicare [place] Medicare Primary [id number] Self [id number] [employer] () Workers Compensation [id number] Self [id number] [place] Medicare Primary [id number] Self [id number] [employer] () Workers Compensation [id number] Self [id number] [place] Medicare Primary [id number] Self [id number] [employer] (pr) Medigap Part B Self Medicare [facility] Medicare Primary Self [employer] Medigap Part B Self Medicare [facility] Medicare Primary Self [employer] (pr) Medigap Part B Self [employer] Medigap Part B Self Medicare [facility] Medicare Primary Self MEDICARE A [id number] Self [id number] [employer] U [id number] Self [id number] Surgeries/Procedures Procedure Description Date Indications Data Source(s) ARTHROCENTESIS ASPIR&/INJECTION MAJOR JT/BURSA 021 12:00:00 AM EST [facility] ([facility] ARTHROCENTESIS ASPIR&/INJECTION MAJOR JT/BURSA 021 12:00:00 AM EST [facility] ([facility] RADEX SHOULDER COMPLETE MINIMUM 2 VIEWS 04/12/2020 12: 00:00 AM EST [facility] ([facility] ARTHROCENTESIS ASPIR&/INJECTION MAJOR JT/BURSA 12:00:00 AM EDT [facility] ([facility] ) ARTHROCENTESIS ASPIR&/INJECTION MAJOR JT/BURSA 12:00:00 AM EDT [facility] ([facility] ARTHROCENTESIS ASPIR&/INJECTION MAJOR JT/BURSA 07/13/2 020 12:00:00 AM EDT [facility] ([facility]) Mammogram 09/21/2019 12:00:00 AM EDT M [facility] ([facility] Document: 09/17/17 - [facility] Radiology Digit al Woman [place] ARTHROCENTESIS ASPIR&/INJECTION MAJOR JT/BURSA 020 12:00:00 AM EST [facility] ([facility]) ARTHROCENTESIS ASPIR&/INJECTION MAJOR JT/BURSA 019 12:00:00 AM EST [facility] ([facility]) Results ID Date Data Source [id number] 01/31/2020 08:44:00 AM EST [facility] ([facility] Name Value Range Interpretation Code Description Data Mercedes rce(s) Supporting Document(s) Bilirubin.conjugated [Mass/volume] in Serum or Plasma 0.10 mg/dL 0.00 -0.40 [facility] ([facility] ID Date Data Source [id number] 01/31/2020 08:44:00 AM EST [facility] ([facility] Name Value Range Interpretation Code Description Data Mercedes rce(s) Supporting Document(s) Thyroxine (T4) Free, Direct, S 1.41 ng/dL 0.82-1.77 [facility] ([facility] ID Date Data Source [id number] 01/31/2020 08:44:00 AM EST [facility] ([facility] Hay [...] Serum or Plasma 1.5 1.2-2.2 [facility] ([facility] Globulin [Mass/volume] in Serum by [...] [facility] ID Date Data Source [id number] 01/31/2020 08:44:00 AM EST [facility] ([facility] Name Value Range Interpretation Code Description Data Mercedes rce(s) Supporting Document(s) Thyrotropin [Units/volume] in Serum or Plasma 1.700 uIU/mL 0.450-4.50 0 [facility] ([facility] ID Date Data Source [id number] 01/31/2020 08:44:00 AM EST [facility] ([facility] Hay [...] [facility] ID Date Data Source [id number] 02/01/2020 03:05:00 AM EST [facility] Name Value [...] 0.0-0.1 [facility] ID Date Data Source [id number] 02/01/2020 05:05:00 AM EST [facility] Name Value [...] IU/L 0-32 [facility] ID Date Data Source [id number] 02/01/2020 06:06:00 AM EST [facility] Name Value Range Interpretation Code Description Data Mercedes rce(s) Supporting Document(s) T4,Free(Direct) 1.41 ng/dL 0.82-1.77 [facility] ID Date Data Source [id number] 02/01/2020 08:08:00 AM EST [facility] Name Value Range Interpretation Code Description Data Mercedes rce(s) Supporting Document(s) Bilirubin, Direct 0.10 mg/dL 0.00-0.40 [facility] ID Date Data Source [id number] 02/01/2020 06:06:00 AM EST [facility] Name Value Range Interpretation Code Description Data Mercedes rce(s) Supporting Document(s) TSH 1.700 uIU/mL 0.450-4.500 [facility] ID Date Data Source [id number] 09/21/2019 12:00:00 AM EDT [facility] Dolores Hay MD Patient Name: DEYVI PARDO [id number] [address] Date of : [address], [place] [address] Date of Exam: 09/21/2019#: Fax: [phone] EXAM: [...] mammogram was read with the assistance of [employer], an FDAapproved computer aided detection system for [...] testing established by National [employer] and [employer] guidelines. She should pursue arisk [...] Name Value Range Interpretation Code Description Data Emrcedes rce(s) Supporting Document(s) Procedure Social History Code [...] k g/m2 [facility] ([facility] [place] body weight 105 [lb_av] 105 [lb_av] [facility] [...] k g/m2 [facility] ([facility] [place] body weight 105 [lb_av] 105 [lb_av] MED[facility] [...] blood pressure 156 mm[Hg] 156 mm[Hg] [facility] Body mass index (BMI) [Ratio] 25.3 kg/m2 25.3 k g/m2 [facility] ([facility] [place] body weight 105 [lb_av] 105 [lb_av] [facility] [...]
--- NOTE | 2020-05-17 11:19 | REP ---
INDICATION: CVA - Nursing interventions must not delay CT. COMPARISON: Comparison CT study March 09, 2017.. TECHNIQUE: Helical scanning is acquired. 5 mm axial images were reformatted. Coronal MPR images were generated. FINDINGS: Bone window settings demonstrate an intact bony calvarium. There is no evidence of skull fracture or incidental bony calvarial lesion. The visualized paranasal sinuses appear clear. No intraorbital abnormality is seen. On soft tissue window setting images; the lateral, third, and fourth ventricles are normal in size and position. Tompkins-white differentiation pattern is normal above and below the tentorium. There are is no evidence of intracranial hemorrhage. No mass, edema, infarction, or midline shift is seen. No extra-axial fluid collection is appreciated. There is generalized volume loss and mild vascular calcification. There is physiologic calcification of the basal ganglia again noted. IMPRESSION: Generalized volume loss, vascular calcification, mild small vessel changes. Physiologic calcifications the basal ganglia. No acute intracranial abnormality.. <Electronically signed by Elliot Murguia > 05/17/20 [id number]
--- NOTE | 2020-05-17 11:21 | REP ---
INDICATION: CVA. COMPARISON: 03/09/2017. TECHNIQUE: SINGLE PORTABLE AP VIEW OF THE CHEST WAS PERFORMED. FINDINGS: THERE IS NO ACUTE INFILTRATE OR PULMONARY EDEMA. LUNGS ARE CLEAR. HEART IS NOT SIGNIFICANTLY ENLARGED. MEDIASTINAL SILHOUETTE IS UNREMARKABLE. THE VISUALIZED OSSEOUS STRUCTURES ARE INTACT. IMPRESSION: NO ACUTE PULMONARY DISEASE. <Electronically signed by Milan Tompkins > 05/17/20 1119
[2020-05-17 11:35] LABS: BASO # 0.1 10^3/uL (0.0-0.2); BASO % 0.9 % (0.0-1.0); EOS # 0.1 10^3/uL (0.0-0.5); EOS % 0.8 % (0.0-3.0); HEMATOCRIT 43.6 % (36.0-47.0); HEMOGLOBIN 13.9 g/dl (12.0-15.5); LYMPH # 1.8 10^3/uL (1.5-5.0); LYMPH % 23.2 % (24.0-44.0); MEAN CORPUSCULAR HEMOGLOBIN 29.4 pg (27.0-33.0); MEAN CORPUSCULAR HGB CONC 31.9 g/dl (32.0-36.5); MEAN CORPUSCULAR VOLUME 92.4 fl (80.0-96.0); MONO # 0.6 10^3/uL (0.0-0.8); MONO % 7.8 % (2.0-8.0); NEUTROPHILS # 5.2 10^3/uL (1.5-8.5); PLATELET COUNT, AUTOMATED 325 10^3/uL (150-450); RED BLOOD COUNT 4.72 10^6/uL (4.00-5.40); WHITE BLOOD COUNT 7.7 10^3/uL (4.0-10.0)
[2020-05-17 11:42] LABS: INR 0.98; PROTHROMBIN TIME 13.2 SECONDS (12.5-14.3)
[2020-05-17 11:51] LABS: CPK CREATINE PHOSPHOKINASE 119 U/L (26-192); MB/CK RELATIVE INDEX 2.52 (< OR =4); TROPONIN I < 0.02 NG/ML (< 0.10)
[2020-05-17 12:09] LABS: C REACTIVE PROTEIN QUANTITATIV < 0.30 MG/DL (0.00-0.30)
[2020-05-17 13:35] LABS: ERYTHROCYTE SEDIMENTATION RATE 4 mm/hr (0-30)
--- NOTE | 2020-05-17 17:12 | ECGEPIP ---
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
--- NOTE | 2020-05-17 18:11 | REPVR ---
PROCEDURE INFORMATION: Exam: MR Head Without Contrast Exam date and time: 05/17/2020 4:45 PM Age: 80 years old Clinical indication: Visual disturbance; Additional info: Transient vision loss TECHNIQUE: Imaging protocol: MR of the head without contrast. COMPARISON: CT Head without contrast 05/17/2020 10:56 AM FINDINGS: Limitations: The study is mildly limited due to patient motion artifact. Brain: No restricted diffusion is seen to suggest acute infarction. There is no acute intracranial hemorrhage, cerebral edema, or midline shift. Age-related cerebral and cerebellar substance loss is present. Mild increased T2 and FLAIR signal within the periventricular white matter is present. This is nonspecific but likely related to chronic microangiopathic ischemic change. Cerebral ventricles: No hydrocephalus. Bones/joints: Unremarkable. Paranasal sinuses: Normal as visualized. No acute sinusitis. Mastoid air cells: Normal as visualized. No mastoid effusion. Orbital cavity: Unremarkable. Soft tissues: Unremarkable. IMPRESSION: 1. Mildly limited exam due to motion artifact 2. No acute intracranial abnormality. 3. Chronic findings as discussed above. Electronically signed by: Melvin Hull On 05/17/2020 18:11:13 PM
--- NOTE | 2020-05-17 18:17 | REPVR ---
PROCEDURE INFORMATION: Exam: MR Angiography Neck Without Contrast Exam date and time: 05/17/2020 4:44 PM Age: 80 years old Clinical indication: Visual disturbance; Sudden visual loss; Additional info: Vision loss TECHNIQUE: Imaging protocol: Magnetic resonance angiography of the neck without contrast. COMPARISON: CT Spine,cervical w/o contrast 10/08/2016 5:40 PM FINDINGS: Right common carotid artery: No stenosis. No dissection or occlusion. Right internal carotid artery: Atherosclerotic plaque is present at the right carotid bifurcation. This is causing approximately 30% stenosis of the proximal right internal carotid artery. Right external carotid artery: No stenosis. No dissection or occlusion of the origin. Right vertebral artery: No stenosis. No dissection or occlusion. Left common carotid artery: No stenosis. No dissection or occlusion. Left internal carotid artery: No stenosis of the extracranial segment. No dissection or occlusion. Left external carotid artery: No stenosis. No dissection or occlusion of the origin. Left vertebral artery: No stenosis. No dissection or occlusion. IMPRESSION: 1. No acute abnormality. 2. Approximately 30% stenosis of the proximal right internal carotid artery. REFERENCES: NASCET CRITERIA. The degree of internal carotid artery stenosis is based on NASCET criteria. Normal is no stenosis. Mild is less than 50% stenosis. Moderate is 50-69% stenosis. Severe is 70% to 99% stenosis. Total occlusion is no detectable patent lumen. Electronically signed by: Melvin Hull On 05/17/2020 18:18:10 PM
--- NOTE | 2020-05-17 18:20 | REPVR ---
PROCEDURE INFORMATION: Exam: MR Angiogram Head Without Contrast, Arteries Exam date and time: 05/17/2020 4:44 PM Age: 80 years old Clinical indication: Visual disturbance; Sudden visual loss; Additional info: Vision loss TECHNIQUE: Imaging protocol: MR angiogram head without contrast. Exam focused on the arteries. COMPARISON: CT Head without contrast 05/17/2020 10:56 AM FINDINGS: Limitations: The study is mildly limited due to patient motion artifact. ANTERIOR CIRCULATION: Right internal carotid artery: Intracranial segment is patent with no significant stenosis. No aneurysm. Right middle cerebral artery: No occlusion or significant stenosis. No aneurysm. Right anterior cerebral artery: No occlusion or significant stenosis. No aneurysm. Left internal carotid artery: Intracranial segment is patent with no significant stenosis. No aneurysm. Left middle cerebral artery: No occlusion or significant stenosis. No aneurysm. Left anterior cerebral artery: No occlusion or significant stenosis. No aneurysm. POSTERIOR CIRCULATION: Right vertebral artery: No occlusion or significant stenosis. No aneurysm. Left vertebral artery: There is probable severe stenosis of the left vertebral artery as it enters the dura. The distal left vertebral artery is severely diminutive in size or hypoplastic but patent. Basilar artery: No occlusion or significant stenosis. No aneurysm. Right posterior cerebral artery: No occlusion or significant stenosis. No aneurysm. Left posterior cerebral artery: No occlusion or significant stenosis. No aneurysm. IMPRESSION: 1. Mildly limited exam due to motion artifact 2. 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 The distal left vertebral artery is severely diminutive in size or hypoplastic but patent. Electronically signed by: Melvin Hull On 05/17/2020 18:20:32 PM
[2020-05-17 19:15] VITALS: BP 144/65
== END 2020-05-17 19:31 | disposition home or self-care (01) ==
LOC: M ED 10:08
DX: G45.9 Transient cerebral ischemic attack, unspecified (principal); I10 Essential (primary) hypertension; G89.29 Other chronic pain; Z79.51 Long term (current) use of inhaled steroids; Z79.899 Other long term (current) drug therapy; Z87.891 Personal history of nicotine dependence; Z88.0 Allergy status to penicillin; Z88.1 Allergy status to other antibiotic agents; Z88.2 Allergy status to sulfonamides; Z88.6 Allergy status to analgesic agent; Z88.8 Allergy status to other drugs, medicaments and biological substances

== ENCOUNTER → 2020-06-03 | Outpatient (CLI) | payer MEDICARE, OTHER ==
[~2020-06-03] MED LIST changes: +ASPI-531 PO
--- NOTE | 2020-06-03 18:08 | REP ---
INDICATION: OPTIC NEURITIS. COMPARISON: None. TECHNIQUE: Bilateral carotid artery duplex ultrasound. FINDINGS: Peak flow velocities: Right left Internal carotid artery 109.3 cm/sec 83.0 cm/sec Int. Carotid diastolic 29.2 cm/sec 22.8 cm/sec External carotid artery 69.9 cm/sec 92.8 cm/sec Common carotid artery 85.5 cm/sec 92.0 cm/sec ICA-CCA ratio 1.3 0.9 There is no visible atheromatous plaque on the right or the left. The peak flow velocities are normal bilaterally. There is no evidence of stenosis on the right or the left. There is antegrade flow in the vertebral arteries bilaterally. IMPRESSION: There is no stenosis on the right or the left. <Electronically signed by Milan Champion > 06/03/20 [id number]
== END ==
LOC: M RAD 15:05
PROVIDERS: ATTEND Ophthalmology
DX: R09.89 Other specified symptoms and signs involving the circulatory and respiratory systems (principal); H46.9 Unspecified optic neuritis

== ENCOUNTER → 2020-08-12 | Outpatient (CLI) | payer MEDICARE, OTHER ==
[2020-08-12 12:14] LABS: HEMATOCRIT 42.9 % (36.0-47.0); HEMOGLOBIN 13.5 g/dl (12.0-15.5); MEAN CORPUSCULAR HEMOGLOBIN 29.5 pg (27.0-33.0); MEAN CORPUSCULAR HGB CONC 31.5 g/dl (32.0-36.5); MEAN CORPUSCULAR VOLUME 93.9 fl (80.0-96.0); PLATELET COUNT, AUTOMATED 278 10^3/uL (150-450); RED BLOOD COUNT 4.57 10^6/uL (4.00-5.40); WHITE BLOOD COUNT 9.2 10^3/uL (4.0-10.0)
[2020-08-12 12:57] LABS: ALBUMIN 3.7 GM/DL (3.2-5.2); BILIRUBIN,TOTAL 0.4 MG/DL (0.2-1.0); CHOLESTEROL RISK RATIO 3.057 (<5); CREATININE FOR GFR 1.26 MG/DL (0.55-1.30); FREE T4 1.29 NG/DL (0.76-1.46); GLOMERULAR FILTRATION RATE 43.6 (>39); POTASSIUM SERUM 4.2 MEQ/L (3.5-5.1); THYROID STIMULATING HORMONE 1.16 uIU/ML (0.358-3.740); TOTAL PROTEIN 6.7 GM/DL (6.4-8.2)
== END ==
LOC: M WUC 09:59
PROVIDERS: ATTEND Family Medicine
DX: I65.02 Occlusion and stenosis of left vertebral artery (principal); E78.5 Hyperlipidemia, unspecified; E03.9 Hypothyroidism, unspecified

== ENCOUNTER → 2020-12-27 | Outpatient (CLI) | payer MEDICARE, OTHER ==
[2020-12-27 12:47] LABS: ALBUMIN 3.6 GM/DL (3.2-5.2); BILIRUBIN,TOTAL 0.4 MG/DL (0.2-1.0); CALCIUM LEVEL 9.7 MG/DL (8.8-10.2); CHOLESTEROL RISK RATIO 2.094 (<5); CREATININE FOR GFR 1.03 MG/DL (0.55-1.30); POTASSIUM SERUM 4.6 MEQ/L (3.5-5.1); TOTAL PROTEIN 6.7 GM/DL (6.4-8.2)
== END ==
LOC: M WUC 08:21
PROVIDERS: ATTEND Family Medicine
DX: E78.5 Hyperlipidemia, unspecified (principal)

== ENCOUNTER → 2021-06-27 | Outpatient (CLI) | payer MEDICARE, OTHER ==
[2021-06-27 12:26] LABS: HEMOGLOBIN 13.7 g/dl (12.0-15.5); MEAN CORPUSCULAR HEMOGLOBIN 29.8 pg (27.0-33.0); MEAN CORPUSCULAR HGB CONC 31.9 g/dl (32.0-36.5); MEAN CORPUSCULAR VOLUME 93.5 fl (80.0-96.0); PLATELET COUNT, AUTOMATED 299 10^3/uL (150-450); WHITE BLOOD COUNT 10.6 10^3/uL (4.0-10.0)
[2021-06-27 12:59] LABS: ALBUMIN 3.9 GM/DL (3.2-5.2); BILIRUBIN,TOTAL 0.5 MG/DL (0.2-1.0); CALCIUM LEVEL 10.1 MG/DL (8.8-10.2); CHOLESTEROL RISK RATIO 2.051 (<5); CREATININE FOR GFR 1.1 MG/DL (0.55-1.30); FREE T4 1.31 NG/DL (0.76-1.46); GLOMERULAR FILTRATION RATE 50.9 (>32); POTASSIUM SERUM 3.7 MEQ/L (3.5-5.1); THYROID STIMULATING HORMONE 0.697 uIU/ML (0.358-3.740); TOTAL PROTEIN 7.2 GM/DL (6.4-8.2)
== END ==
LOC: M WUC 09:06
PROVIDERS: ATTEND Family Medicine
DX: I65.02 Occlusion and stenosis of left vertebral artery (principal); E03.9 Hypothyroidism, unspecified; E78.5 Hyperlipidemia, unspecified; I11.9 Hypertensive heart disease without heart failure

== ENCOUNTER → 2021-07-07 | Outpatient (CLI) | payer MEDICARE, OTHER ==
[2021-07-07 12:42] LABS: CREATININE FOR GFR 1.02 MG/DL (0.55-1.30); GLOMERULAR FILTRATION RATE 55.5 (>32)
== END ==
LOC: M WUC 10:08
PROVIDERS: ATTEND Orthopaedic Surgery Orthopaedic Surgery of the Spine
DX: Z00.00 Encounter for general adult medical examination without abnormal findings (principal); M54.50 Low back pain, unspecified

== ENCOUNTER → 2021-12-09 | Outpatient (CLI) | payer MEDICARE, OTHER | LOC: M WUC 08:21 | PROVIDERS: ATTEND Ophthalmology | DX: G45.3 Amaurosis fugax (principal) ==

== ENCOUNTER → 2021-12-24 | Outpatient (CLI) | payer MEDICARE, OTHER ==
[~2021-12-24] MED LIST changes: +GASTROGRAFIN SOLUTION 30ML (Q9963) As Ordered ONE; +ISOVUE-370 76% 100ML VIAL As Ordered ONE
== END ==
LOC: M RAD 09:53
PROVIDERS: ATTEND Family Medicine
DX: R91.8 Other nonspecific abnormal finding of lung field (principal); E07.9 Disorder of thyroid, unspecified
CPT/HCPCS: 36415; 74177; 80053; 81000; 83690; 84439; 84443; 85027; 86140; 87086; Q9963; Q9967

== ENCOUNTER → 2021-12-24 | Outpatient (CLI) | payer MEDICARE, OTHER ==
[~2021-12-24] MED LIST changes: -GASTROGRAFIN SOLUTION 30ML (Q9963) As Ordered ONE; -ISOVUE-370 76% 100ML VIAL As Ordered ONE
[2021-12-24 08:21] LABS: APPEARANCE, URINE MANUAL CLOUDY (CLEAR); COLOR, URINE MANUAL AMBER (YELLOW)
[2021-12-24 08:22] LABS: GLUCOSE, URINE (UA) MANUAL NEGATIVE (NEGATIVE); KETONE, URINE MANUAL NEGATIVE (NEGATIVE); PROTEIN, URINE MANUAL 2+ mg/dL (NEGATIVE)
[2021-12-24 08:23] LABS: BLOOD URINE MANUAL TRACE (NEGATIVE); LEUKOCYTE ESTERASE, URINE MAN POSITIVE (NEGATIVE); NITRITE, URINE MANUAL NEGATIVE (NEGATIVE); UROBILINOGEN, URINE MANUAL NORMAL (NORMAL)
[2021-12-24 08:25] LABS: BILIRUBIN, URINE MANUAL 1+ (NEGATIVE)
[2021-12-24 08:29] LABS: HEMATOCRIT 43.4 % (36.0-47.0); HEMOGLOBIN 13.7 g/dl (12.0-15.5); MEAN CORPUSCULAR HEMOGLOBIN 28.4 pg (27.0-33.0); MEAN CORPUSCULAR HGB CONC 31.6 g/dl (32.0-36.5); PLATELET COUNT, AUTOMATED 295 10^3/uL (150-450); RED BLOOD COUNT 4.82 10^6/uL (4.00-5.40); WHITE BLOOD COUNT 9.3 10^3/uL (4.0-10.0)
[2021-12-24 08:37] LABS: BACTERIA, URINE LARGE AMOUNT; SQUAMOUS EPITHELIAL CELL URINE MOD AMOUNT /hpf (SMALL AMT); WBC, URINE 20-30 /hpf (0-3)
[2021-12-24 08:38] LABS: MUCUS, URINE MOD AMOUNT (NEGATIVE)
[2021-12-24 08:39] LABS: HYALINE CAST, URINE TNTC /lpf (0-1)
[2021-12-24 08:41] LABS: RENAL EPITHELIAL CELLS, URINE SMALL AMOUNT /hpf; TRANSITIONAL EPI CELLS, URINE SMALL AMOUNT /hpf
[2021-12-24 09:09] LABS: ALBUMIN 3.4 GM/DL (3.2-5.2); BILIRUBIN,TOTAL 0.4 MG/DL (0.2-1.0); C REACTIVE PROTEIN QUANTITATIV 5.25 MG/DL (0.00-0.30); CALCIUM LEVEL 9.5 MG/DL (8.8-10.2); CREATININE FOR GFR 1.16 MG/DL (0.55-1.30); FREE T4 1.45 NG/DL (0.76-1.46); GLOMERULAR FILTRATION RATE 47.9 (>32); POTASSIUM SERUM 3.8 MEQ/L (3.5-5.1); THYROID STIMULATING HORMONE 1.95 uIU/ML (0.358-3.740); TOTAL PROTEIN 6.8 GM/DL (6.4-8.2)
== END ==
LOC: M LAB 08:11
PROVIDERS: ATTEND Family Medicine
DX: E03.9 Hypothyroidism, unspecified (principal)

== ENCOUNTER → 2021-12-25 | Outpatient (REF) | payer MEDICARE, OTHER ==
[2021-12-25 13:42] LABS: ALBUMIN 3.5 GM/DL (3.2-5.2); ALT/SGPT 320 U/L (12-78); BILIRUBIN,TOTAL 0.4 MG/DL (0.2-1.0); BLOOD UREA NITROGEN 23 MG/DL (7-18); C REACTIVE PROTEIN QUANTITATIV 3.03 MG/DL (0.00-0.30); CALCIUM LEVEL 9.8 MG/DL (8.8-10.2); CARBON DIOXIDE LEVEL 27 MEQ/L (21-32); CHLORIDE LEVEL 95 MEQ/L (98-107); CREATININE FOR GFR 1.14 MG/DL (0.55-1.30); GLOMERULAR FILTRATION RATE 48.8 (>32); GLUCOSE, FASTING 95 MG/DL (70-100); POTASSIUM SERUM 4.1 MEQ/L (3.5-5.1); SODIUM LEVEL 131 MEQ/L (136-145); TOTAL PROTEIN 6.8 GM/DL (6.4-8.2)
[2021-12-25 13:50] LABS: CHOLESTEROL RISK RATIO 2.921 (<5); FREE T4 1.46 NG/DL (0.76-1.46); THYROID STIMULATING HORMONE 1.22 uIU/ML (0.358-3.740)
[2021-12-25 14:39] LABS: HEPATITIS B SURFACE ANTIGEN NEGATIVE (NEGATIVE)
[2021-12-25 15:06] LABS: HEPATITIS C VIRUS ABY INDEX < 0.0 INDEX (<0.8)
[2021-12-25 15:07] LABS: HEPATITIS B CORE ANTIBODY IGM NEGATIVE (NEGATIVE)
[2021-12-25 16:28] LABS: MONO REFLEX EBV VCA IgM NEGATIVE (NEGATIVE)
== END ==
LOC: M SFHCADAM 09:03
PROVIDERS: ATTEND Family Medicine
DX: R10.11 Right upper quadrant pain (principal); R74.8 Abnormal levels of other serum enzymes; E07.9 Disorder of thyroid, unspecified

== ENCOUNTER → 2022-01-01 | Outpatient (REF) | payer MEDICARE, OTHER ==
[2022-01-01 14:20] LABS: ALBUMIN 3.8 GM/DL (3.2-5.2); BILIRUBIN,TOTAL 0.4 MG/DL (0.2-1.0); C REACTIVE PROTEIN QUANTITATIV 0.3 MG/DL (0.00-0.30); CALCIUM LEVEL 10.1 MG/DL (8.8-10.2); CREATININE FOR GFR 0.96 MG/DL (0.55-1.30); GLOMERULAR FILTRATION RATE 59.5 (>32); POTASSIUM SERUM 4.7 MEQ/L (3.5-5.1)
== END ==
LOC: M SFHCADAM 08:39
PROVIDERS: ATTEND Family Medicine
DX: R74.8 Abnormal levels of other serum enzymes (principal); R79.82 Elevated C-reactive protein (CRP)

== ENCOUNTER → 2022-01-08 | Outpatient (CLI) | payer MEDICARE, OTHER ==
[~2022-01-08] MED LIST changes: +ISOVUE-370 76% 100ML VIAL As Ordered ONE
== END ==
LOC: M RAD 13:18
PROVIDERS: ATTEND Family Medicine
DX: D49.1 Neoplasm of unspecified behavior of respiratory system (principal)
CPT/HCPCS: 71260; Q9967

== ENCOUNTER → 2022-08-07 | Outpatient (REF) | payer MEDICARE, OTHER ==
[~2022-08-07] MED LIST changes: -ISOVUE-370 76% 100ML VIAL As Ordered ONE
[2022-08-07 16:32] LABS: HEMATOCRIT 44.1 % (36.0-47.0); HEMOGLOBIN 13.9 g/dl (12.0-15.5); MEAN CORPUSCULAR HEMOGLOBIN 29.3 pg (27.0-33.0); MEAN CORPUSCULAR HGB CONC 31.5 g/dl (32.0-36.5); MEAN CORPUSCULAR VOLUME 92.8 fl (80.0-96.0); PLATELET COUNT, AUTOMATED 307 10^3/uL (150-450); RED BLOOD COUNT 4.75 10^6/uL (4.00-5.40); WHITE BLOOD COUNT 9.8 10^3/uL (4.0-10.0)
[2022-08-07 16:34] LABS: ALBUMIN 3.7 G/DL (3.2-5.2); ALKALINE PHOSPHATASE 113 U/L (46-116); ALT/SGPT 31 U/L (7.0-40); AST/SGOT 24 U/L (<34); BILIRUBIN,TOTAL 0.4 MG/DL (0.3-1.2); BLOOD UREA NITROGEN 24 MG/DL (9-23); CALCIUM LEVEL 9.5 MG/DL (8.3-10.6); CARBON DIOXIDE LEVEL 28 MMOL/L (20-31); CHLORIDE LEVEL 104 MMOL/L (98-107); CHOLESTEROL LEVEL 165 MG/DL (<200); CHOLESTEROL RISK RATIO 2.43 (<5); CREATININE FOR GFR 1.04 MG/DL (0.55-1.30); GLOMERULAR FILTRATION RATE 54.1 (>32); GLUCOSE, FASTING 101 MG/DL (74-106); HDL CHOLESTEROL 67.8 MG/DL (>40); LDL CHOLESTEROL 79.4 MG/DL (<100); NON-HDL-C 97.2 MG/DL; POTASSIUM SERUM 4.6 MMOL/L (3.5-5.1); SODIUM LEVEL 139 MMOL/L (136-145); TOTAL PROTEIN 6.6 G/DL (5.7-8.2); TRIGLYCERIDES LEVEL 89 MG/DL (<150)
[2022-08-07 16:35] LABS: THYROID STIMULATING HORMONE 0.309 uIU/ML (0.55-4.78)
[2022-08-07 16:36] LABS: FREE T4 1.37 NG/DL (0.89-1.76); VITAMIN B12 LEVEL 580 PG/ML (211-911)
[2022-08-07 16:37] LABS: FOLATE > 24.00 NG/ML (>5.4); HEMOGLOBIN A1c 5.3 % (4.0-6.0)
== END ==
LOC: M SFHCADAM 13:34
PROVIDERS: ATTEND Family Medicine
DX: R53.82 Chronic fatigue, unspecified (principal); R79.82 Elevated C-reactive protein (CRP); R74.8 Abnormal levels of other serum enzymes; E78.5 Hyperlipidemia, unspecified; I11.9 Hypertensive heart disease without heart failure

== ENCOUNTER → 2023-04-27 | Outpatient (REF) | payer MEDICARE, OTHER ==
[2023-04-27 13:24] LABS: HEMATOCRIT 43.3 % (36.0-47.0); HEMOGLOBIN 13.3 g/dl (12.0-15.5); MEAN CORPUSCULAR HEMOGLOBIN 28.1 pg (27.0-33.0); MEAN CORPUSCULAR HGB CONC 30.7 g/dl (32.0-36.5); MEAN CORPUSCULAR VOLUME 91.5 fl (80.0-96.0); PLATELET COUNT, AUTOMATED 373 10^3/uL (150-450); RED BLOOD COUNT 4.73 10^6/uL (4.00-5.40); WHITE BLOOD COUNT 10.5 10^3/uL (4.0-10.0)
[2023-04-27 14:09] LABS: ALBUMIN 3.5 G/DL (3.2-5.2); ALKALINE PHOSPHATASE 137 U/L (46-116); ALT/SGPT 18 U/L (7.0-40); AST/SGOT 22 U/L (<34); BILIRUBIN,TOTAL 0.3 MG/DL (0.3-1.2); BLOOD UREA NITROGEN 18 MG/DL (9-23); CALCIUM LEVEL 9.8 MG/DL (8.3-10.6); CARBON DIOXIDE LEVEL 27 MMOL/L (20-31); CHLORIDE LEVEL 105 MMOL/L (98-107); CHOLESTEROL LEVEL 162 MG/DL (<200); CHOLESTEROL RISK RATIO 2.48 (<5); GLOMERULAR FILTRATION RATE > 60.0 (>32); GLUCOSE, FASTING 89 MG/DL (74-106); HDL CHOLESTEROL 65.2 MG/DL (>40); LDL CHOLESTEROL 76.6 MG/DL (<100); NON-HDL-C 96.8 MG/DL; POTASSIUM SERUM 4.6 MMOL/L (3.5-5.1); SODIUM LEVEL 141 MMOL/L (136-145); THYROID STIMULATING HORMONE 0.404 uIU/ML (0.55-4.78); TOTAL PROTEIN 6.8 G/DL (5.7-8.2); TRIGLYCERIDES LEVEL 101 MG/DL (<150)
[2023-04-27 14:10] LABS: FREE T4 1.27 NG/DL (0.89-1.76)
[2023-04-27 20:50] LABS: HEMOGLOBIN A1c 5.4 % (4.0-6.0)
== END ==
LOC: M SFHCADAM 11:19
PROVIDERS: ATTEND Family Medicine
DX: E78.5 Hyperlipidemia, unspecified (principal); E03.9 Hypothyroidism, unspecified; Z13.1 Encounter for screening for diabetes mellitus; M75.01 Adhesive capsulitis of right shoulder

== ENCOUNTER → 2023-04-27 | Outpatient (CLI) | payer MEDICARE, OTHER | LOC: M ADAMS 11:32 | PROVIDERS: ATTEND Family Medicine | DX: M19.011 Primary osteoarthritis, right shoulder (principal) ==

== ENCOUNTER → 2023-07-01 | Outpatient (CLI) | payer MEDICARE, OTHER ==
[2023-07-01 15:16] LABS: BASO # 0.1 10^3/uL (0.0-0.2); BASO % 1.2 % (0.0-1.0); EOS # 0.1 10^3/uL (0.0-0.5); HEMATOCRIT 39.2 % (36.0-47.0); HEMOGLOBIN 12.1 g/dl (12.0-15.5); LYMPH # 2.4 10^3/uL (1.5-5.0); LYMPH % 22.9 % (24.0-44.0); MEAN CORPUSCULAR HEMOGLOBIN 27.9 pg (27.0-33.0); MEAN CORPUSCULAR HGB CONC 30.9 g/dl (32.0-36.5); MEAN CORPUSCULAR VOLUME 90.5 fl (80.0-96.0); MONO # 0.9 10^3/uL (0.0-0.8); MONO % 8.9 % (2.0-8.0); NEUTROPHILS # 6.7 10^3/uL (1.5-8.5); NEUTROPHILS % 65.7 % (36.0-66.0); PLATELET COUNT, AUTOMATED 399 10^3/uL (150-450); RED BLOOD COUNT 4.33 10^6/uL (4.00-5.40); WHITE BLOOD COUNT 10.3 10^3/uL (4.0-10.0)
[2023-07-01 15:19] LABS: APPEARANCE, URINE CLEAR (CLEAR); BACTERIA, URINE AUTO NEGATIVE (NEGATIVE); BILIRUBIN, URINE AUTO NEGATIVE (NEGATIVE); BLOOD, URINE BLOOD NEGATIVE (NEGATIVE); COLOR, URINE STRAW (YELLOW); GLUCOSE, URINE (UA) AUTO NEGATIVE (NEGATIVE); KETONE, URINE AUTO NEGATIVE (NEGATIVE); LEUKOCYTE ESTERASE, URINE AUTO NEGATIVE (NEGATIVE); NITRITE, URINE AUTO NEGATIVE (NEGATIVE); PROTEIN, URINE AUTO NEGATIVE (NEGATIVE); RBC, URINE AUTO 0 /HPF (0-3); SPECIFIC GRAVITY URINE AUTO 1.006 (1.002-1.035); SQUAMOUS EPITHELIAL CELL UR AU 0 /HPF (0-6); UROBILINOGEN, URINE AUTO 0.2 mg/dL (0.0-2.0); WBC, URINE AUTO 1 /HPF (0-3)
[2023-07-01 15:20] LABS: ALBUMIN 3.3 G/DL (3.2-5.2); ALKALINE PHOSPHATASE 134 U/L (46-116); ALT/SGPT 14 U/L (7.0-40); AST/SGOT 15 U/L (<34); BILIRUBIN,TOTAL 0.3 MG/DL (0.3-1.2); BLOOD UREA NITROGEN 14 MG/DL (9-23); CALCIUM LEVEL 9.2 MG/DL (8.3-10.6); CARBON DIOXIDE LEVEL 31 MMOL/L (20-31); CHLORIDE LEVEL 105 MMOL/L (98-107); CREATININE FOR GFR 0.78 MG/DL (0.55-1.30); GLOMERULAR FILTRATION RATE > 60.0 (>32); GLUCOSE, FASTING 92 MG/DL (74-106); POTASSIUM SERUM 4.5 MMOL/L (3.5-5.1); SODIUM LEVEL 143 MMOL/L (136-145); TOTAL PROTEIN 6.5 G/DL (5.7-8.2)
[2023-07-01 15:24] LABS: TOTAL 25(OH) VITAMIN D 71.8 NG/ML (20.0-100.0)
[2023-07-01 15:29] LABS: INR 1.05; PROTHROMBIN TIME 13.4 SECONDS (12.5-14.5)
== END ==
LOC: M PLALAB 12:51
PROVIDERS: ATTEND Orthopaedic Surgery
DX: M19.011 Primary osteoarthritis, right shoulder (principal); Z79.01 Long term (current) use of anticoagulants

== ENCOUNTER → 2023-07-05 | Outpatient (CLI) | payer MEDICARE, OTHER | LOC: M RAD 07:50 | PROVIDERS: ATTEND Orthopaedic Surgery | DX: M19.011 Primary osteoarthritis, right shoulder (principal) ==

== ENCOUNTER → 2023-11-24 | Outpatient (CLI) | payer MEDICARE, OTHER ==
[~2023-11-24] MED LIST changes: +ALBU2.5V10 INH; +ALBU8.5H INH; +ATOR1TAB19 PO; +ATOR1TAB21 PO; +CALC-190 PO; +GABA-1171 PO; +LEVO75TA4 PO; +LISI20TA33 PO; +NEUR300C PO; +OMEP-173 PO; +PRES1CHW PO; +THERTAB52 PO; +VITA100093 PO; +VITA100T59 PO
[2023-11-24 15:47] LABS: BLOOD UREA NITROGEN 14 MG/DL (9-23); CALCIUM LEVEL 9.4 MG/DL (8.3-10.6); CARBON DIOXIDE LEVEL 29 MMOL/L (20-31); CHLORIDE LEVEL 104 MMOL/L (98-107); CREATININE FOR GFR 0.76 MG/DL (0.55-1.30); GLOMERULAR FILTRATION RATE > 60.0 (>32); GLUCOSE, FASTING 104 MG/DL (74-106); POTASSIUM SERUM 4.1 MMOL/L (3.5-5.1); SODIUM LEVEL 138 MMOL/L (136-145)
== END ==
LOC: M PLALAB 13:00
PROVIDERS: ATTEND Family Medicine
DX: R59.0 Localized enlarged lymph nodes (principal)

== ENCOUNTER → 2023-11-25 | Outpatient (CLI) | payer MEDICARE, OTHER ==
[~2023-11-25] MED LIST changes: -ALBU2.5V10 INH; -ALBU8.5H INH; -ATOR1TAB19 PO; -ATOR1TAB21 PO; -CALC-190 PO; -GABA-1171 PO; +ISOVUE-370 76% 100ML VIAL ONE; -LEVO75TA4 PO; -LISI20TA33 PO; -NEUR300C PO; -OMEP-173 PO; -PRES1CHW PO; -THERTAB52 PO; -VITA100093 PO; -VITA100T59 PO
== END ==
LOC: M PLAIMG 09:42
PROVIDERS: ATTEND Family Medicine
DX: I89.0 Lymphedema, not elsewhere classified (principal)
CPT/HCPCS: 71260; Q9967

== ENCOUNTER 2023-12-11 16:59 | Observation (INO) | payer MEDICARE, OTHER ==
[~2023-12-11] VITALS: Ht 154.9 cm; Wt 55.1 kg
[~2023-12-11 16:59] MED LIST changes: +ALBU2.5V10 INH; +ALBU8.5H INH; +ATOR1TAB19 PO; +ATOR1TAB21 PO; +CALC-190 PO; +GABA-1171 PO; -ISOVUE-370 76% 100ML VIAL ONE; +LEVO75TA4 PO; +LISI20TA33 PO; +NEUR300C PO; +OMEP-173 PO; +PRES1CHW PO; +THERTAB52 PO; +VITA100093 PO; +VITA100T59 PO
[2023-12-11] MEDS ORDERED: PRES1CHW PO (17:32)
[2023-12-11] MEDS ORDERED: ATOR1TAB21 PO (17:32)
[2023-12-11 17:41] LABS: BASO # 0.1 10^3/uL (0.0-0.2); BASO % 0.9 % (0.0-1.0); EOS # 0.1 10^3/uL (0.0-0.5); EOS % 0.5 % (0.0-3.0); HEMATOCRIT 33.6 % (36.0-47.0); HEMOGLOBIN 10.6 g/dl (12.0-15.5); LYMPH # 1.7 10^3/uL (1.5-5.0); LYMPH % 15.6 % (24.0-44.0); MEAN CORPUSCULAR HEMOGLOBIN 26.6 pg (27.0-33.0); MEAN CORPUSCULAR HGB CONC 31.5 g/dl (32.0-36.5); MEAN CORPUSCULAR VOLUME 84.4 fl (80.0-96.0); MONO # 1.1 10^3/uL (0.0-0.8); MONO % 9.9 % (2.0-8.0); NEUTROPHILS % 72.6 % (36.0-66.0); PLATELET COUNT, AUTOMATED 454 10^3/uL (150-450); RED BLOOD COUNT 3.98 10^6/uL (4.00-5.40)
[2023-12-11] MEDS: NS 1,000 ML IV ONE (18:05)
[2023-12-11 18:16] LABS: BLOOD UREA NITROGEN 18 MG/DL (9-23); CALCIUM LEVEL 8.7 MG/DL (8.3-10.6); CARBON DIOXIDE LEVEL 27 MMOL/L (20-31); CHLORIDE LEVEL 104 MMOL/L (98-107); CREATININE FOR GFR 0.82 MG/DL (0.55-1.30); GLOMERULAR FILTRATION RATE > 60.0 (>32); GLUCOSE, FASTING 112 MG/DL (74-106); POTASSIUM SERUM 4.4 MMOL/L (3.5-5.1); SODIUM LEVEL 136 MMOL/L (136-145)
[2023-12-11] MEDS: GLYCOPYRROLATE INJ 0.2 MG/ML 2 ML VIAL NEB ONE (19:02)
[2023-12-11] MEDS: FORMOTEROL FUMARATE 20 MCG/2 ML INHALATION SOLUTION (PERFOROMIST) INH ONE (19:02)
[2023-12-11] MEDS ORDERED: ALBUTEROL SULFATE 2.5MG/0.5ML INH NEB SOLN NEB PRN (19:20)
[2023-12-11] MEDS ORDERED: MOM 30ML SUSPENSION UDC PO PRN (19:20)
[2023-12-11] MEDS: IPRATROPIUM 0.5MG/ALBUTEROL 2.5MG INH SOL UD 3ML (DUONEB) NEB SCH (19:42)
[2023-12-11] MEDS ORDERED: MULTCHW12 PO (20:23)
[2023-12-11] MEDS ORDERED: ALBUTEROL 90 MCG/ACT 8GM HFA INHALER INH PRN (20:25)
[2023-12-11] MEDS ORDERED: ALBUTEROL SULFATE 2.5MG/0.5ML INH NEB SOLN INH PRN (20:25)
[2023-12-11] MEDS ORDERED: HOME MED LIST COMPLETE! XX SCH (20:35)
[2023-12-11] MEDS: LevoFLOXacin IV 500 MG in IV 1 EA IV SCH (20:43)
[2023-12-11] MEDS: methylPREDNISolone 125MG 2ML VIAL IV SCH (20:43)
[2023-12-11] MEDS: GABAPENTIN 300 MG CAP PO SCH (22:20)
[2023-12-11] MEDS: amLODIPine 5 MG TAB PO SCH (22:20)
[2023-12-11] MEDS: ATORVASTATIN 10 MG TAB PO SCH (22:20)
[2023-12-11] MEDS: guaiFENesin ER TABLET 600 MG TAB PO SCH (22:21)
[2023-12-11] MEDS ORDERED: LEVALBUTEROL 1.25MG 0.5ML CONCENTRATE NEB INH PRN (22:35)
[2023-12-11 23:10] VITALS: BP 135/73; TEMP 98.1; O2SAT 98
[2023-12-11 23:27] LABS: BLOOD UREA NITROGEN 14 MG/DL (9-23); CARBON DIOXIDE LEVEL 28 MMOL/L (20-31); CHLORIDE LEVEL 109 MMOL/L (98-107); CREATININE FOR GFR 0.72 MG/DL (0.55-1.30); GLOMERULAR FILTRATION RATE > 60.0 (>32); GLUCOSE, FASTING 130 MG/DL (74-106); MAGNESIUM LEVEL 1.7 MG/DL (1.8-2.4); POTASSIUM SERUM 4.7 MMOL/L (3.5-5.1); SODIUM LEVEL 139 MMOL/L (136-145)
[2023-12-11] MEDS: GABAPENTIN 100 MG CAP PO SCH (23:35)
[2023-12-12 04:00] VITALS: BP 107/63; TEMP 97.5; O2SAT 95
[2023-12-12] MEDS: LEVOTHYROXINE 75MCG TABLET (0.075MG) PO SCH (05:44)
[2023-12-12 06:19] LABS: HEMATOCRIT 34.9 % (36.0-47.0); HEMOGLOBIN 10.8 g/dl (12.0-15.5); MEAN CORPUSCULAR HEMOGLOBIN 26.2 pg (27.0-33.0); MEAN CORPUSCULAR HGB CONC 30.9 g/dl (32.0-36.5); MEAN CORPUSCULAR VOLUME 84.5 fl (80.0-96.0); PLATELET COUNT, AUTOMATED 451 10^3/uL (150-450); RED BLOOD COUNT 4.13 10^6/uL (4.00-5.40); WHITE BLOOD COUNT 7.5 10^3/uL (4.0-10.0)
[2023-12-12 06:35] LABS: ALBUMIN 2.5 G/DL (3.2-5.2); ALKALINE PHOSPHATASE 127 U/L (46-116); ALT/SGPT 14 U/L (7.0-40); AST/SGOT 11 U/L (<34); BILIRUBIN,TOTAL 0.4 MG/DL (0.3-1.2); BLOOD UREA NITROGEN 14 MG/DL (9-23); CALCIUM LEVEL 9.6 MG/DL (8.3-10.6); CARBON DIOXIDE LEVEL 27 MMOL/L (20-31); CHLORIDE LEVEL 109 MMOL/L (98-107); CREATININE FOR GFR 0.69 MG/DL (0.55-1.30); GLOMERULAR FILTRATION RATE > 60.0 (>32); GLUCOSE, FASTING 142 MG/DL (74-106); MAGNESIUM LEVEL 1.8 MG/DL (1.8-2.4); POTASSIUM SERUM 4.5 MMOL/L (3.5-5.1); SODIUM LEVEL 141 MMOL/L (136-145); TOTAL PROTEIN 6.1 G/DL (5.7-8.2)
[2023-12-12] MEDS: VITAMIN D 1,000 INTERNATIONAL UNITS TABLET PO SCH (08:29)
[2023-12-12] MEDS: OMEPRAZOLE 20MG CAP PO SCH (08:29)
[2023-12-12] MEDS ORDERED: LEVO1TAB38 PO (09:49)
[2023-12-12] MEDS ORDERED: PRED20TA PO (09:49)
[2023-12-12] MEDS: MAG SULF 1GM/100ML (MAG RUN) 1 GM in IV 1 EA IV ONE (10:01)
[2023-12-12] MEDS ORDERED: LevoFLOXacin IV 250 MG in IV 1 EA IV SCH (21:00)
== END 2023-12-12 12:00 | disposition home or self-care (01) ==
LOC: M ED 16:59 → M ED INP 17:00 → M MSPAV 23:10
PROVIDERS: ADMIT Preventive Medicine Undersea and Hyperbaric Medicine; ATTEND Student in an Organized Health Care Education/Training Program
DX: R04.2 Hemoptysis (principal); J98.19 Other pulmonary collapse; J44.1 Chronic obstructive pulmonary disease with (acute) exacerbation; J45.909 Unspecified asthma, uncomplicated; I10 Essential (primary) hypertension; E03.9 Hypothyroidism, unspecified; E78.5 Hyperlipidemia, unspecified; K21.9 Gastro-esophageal reflux disease without esophagitis; Z86.73 Personal history of transient ischemic attack (TIA), and cerebral infarction without residual deficits; R00.0 Tachycardia, unspecified; Z90.89 Acquired absence of other organs; Z90.710 Acquired absence of both cervix and uterus; Z98.890 Other specified postprocedural states; Z87.891 Personal history of nicotine dependence; Z80.8 Family history of malignant neoplasm of other organs or systems; Z82.49 Family history of ischemic heart disease and other diseases of the circulatory system; Z81.2 Family history of tobacco abuse and dependence; Z81.1 Family history of alcohol abuse and dependence; Z88.0 Allergy status to penicillin; Z88.1 Allergy status to other antibiotic agents; Z88.2 Allergy status to sulfonamides; Z88.8 Allergy status to other drugs, medicaments and biological substances; Z88.6 Allergy status to analgesic agent; Z79.899 Other long term (current) drug therapy; Z79.82 Long term (current) use of aspirin; Z79.890 Hormone replacement therapy
CPT/HCPCS: 36415; 71045; 80048; 80053; 83735; 84100; 85025; 85027; 87486; 87581; 87633; 87798; 93005; 93041; 94640; 94760; 96361; 96374; 96375; 96376; 99285; G0378; J1596; J1956; J2919; J3475; J7606

== ENCOUNTER 2023-12-15 06:41 | Day surgery (SDC) | payer MEDICARE, OTHER ==
[~2023-12-15] VITALS: Ht 154.9 cm; Wt 54.0 kg
[~2023-12-15 06:41] MED LIST changes: +GABA-1172 PO; -GABA-282 PO; +LEVO1TAB38 PO; +MULTCHW12 PO; +PRED20TA PO
[2023-12-15] MEDS ORDERED: LR 1,000 ML IV SCH (06:55)
[2023-12-15] MEDS ORDERED: LIDOCAINE 2% 100MG/5ML SDV (FOR ANES.) As Ordered ONE (07:50)
[2023-12-15] MEDS ORDERED: ROCURONIUM BROMIDE 50MG/5ML VIAL As Ordered ONE (07:50)
[2023-12-15] MEDS ORDERED: propofoL 200 MG/20 ML VIAL As Ordered ONE (07:50)
[2023-12-15] MEDS ORDERED: fentaNYL 100 MCG/2 ML INJECTION As Ordered ONE (07:50)
[2023-12-15] MEDS ORDERED: SUGAMMADEX SODIUM 500 MG/5 ML VIAL (BRIDION) As Ordered ONE (07:51)
[2023-12-15] MEDS ORDERED: ONDANSETRON 4MG 2ML VIAL As Ordered ONE (07:51)
[2023-12-15] MEDS: CETACAINE SPRAY 5GM As Ordered ONE (08:57)
[2023-12-15] MEDS: EPINEPHrine 1MG/10ML SYRINGE 1.5IN As Ordered ONE (09:20)
[2023-12-15] MEDS ORDERED: fentaNYL 100 MCG/2 ML INJECTION IV PRN (09:30)
[2023-12-15] MEDS ORDERED: oxyCODONE 5MG TAB PO PRN (09:30)
[2023-12-15] MEDS ORDERED: ONDANSETRON 4MG 2ML VIAL IV PRN (09:30)
[2023-12-15] MEDS ORDERED: MORPHINE 2 MG/ML 1ML VIAL IV PRN (09:30)
[2023-12-15 10:10] VITALS: BP 103/57; TEMP 97.4; O2SAT 95
[2023-12-22] MEDS ORDERED: LISI10TA22 PO (15:13)
[2023-12-22] MEDS ORDERED: SPIR12.9 (15:13)
[2023-12-22] MEDS ORDERED: K 10100T PO (16:53)
== END 2023-12-15 10:32 | disposition home or self-care (01) ==
LOC: M SDC 06:41
PROVIDERS: ATTEND Internal Medicine Pulmonary Disease
DX: C34.02 Malignant neoplasm of left main bronchus (principal); C77.1 Secondary and unspecified malignant neoplasm of intrathoracic lymph nodes; J45.909 Unspecified asthma, uncomplicated; I10 Essential (primary) hypertension; E78.00 Pure hypercholesterolemia, unspecified; E03.9 Hypothyroidism, unspecified; Z79.899 Other long term (current) drug therapy; Z79.890 Hormone replacement therapy; Z79.82 Long term (current) use of aspirin; Z90.710 Acquired absence of both cervix and uterus; Z87.891 Personal history of nicotine dependence; Z86.73 Personal history of transient ischemic attack (TIA), and cerebral infarction without residual deficits; Z90.49 Acquired absence of other specified parts of digestive tract; Z88.2 Allergy status to sulfonamides; Z88.0 Allergy status to penicillin; Z88.6 Allergy status to analgesic agent; Z88.1 Allergy status to other antibiotic agents
CPT/HCPCS: 31625; 31641; 31652; 71045; 88104; 88173; 88305; J1100; J2405; J3010

== ENCOUNTER → 2023-12-20 | Outpatient (CLI) | payer MEDICARE, OTHER ==
[~2023-12-20] MED LIST changes: -GABA-1172 PO; +GABA-282 PO; +K 10100T PO; +SPIR12.9
== END ==
LOC: M PLARAD 13:55
PROVIDERS: ATTEND Internal Medicine Pulmonary Disease
DX: R91.8 Other nonspecific abnormal finding of lung field (principal)
CPT/HCPCS: 78815; A9552

== ENCOUNTER → 2023-12-28 | Outpatient (CLI) | payer MEDICARE, OTHER ==
[~2023-12-28] MED LIST changes: +GABA-1172 PO; -GABA-282 PO
== END ==
LOC: M ONCR 14:43
PROVIDERS: ATTEND General Practice
DX: C34.32 Malignant neoplasm of lower lobe, left bronchus or lung (principal); Z79.82 Long term (current) use of aspirin; Z79.899 Other long term (current) drug therapy; Z80.52 Family history of malignant neoplasm of bladder; Z86.73 Personal history of transient ischemic attack (TIA), and cerebral infarction without residual deficits; Z87.891 Personal history of nicotine dependence; Z88.0 Allergy status to penicillin; Z88.1 Allergy status to other antibiotic agents; Z88.2 Allergy status to sulfonamides; Z88.6 Allergy status to analgesic agent; Z90.710 Acquired absence of both cervix and uterus

== ENCOUNTER → 2024-01-13 | Outpatient (CLI) | payer MEDICARE, OTHER ==
[~2024-01-13] VITALS: Ht 154.9 cm; Wt 110.0 kg
[~2024-01-13] MED LIST changes: +LIDOCAINE 1% MDV 20ML VIAL As Ordered ONE; +MIDAZOLAM INJ 2MG/2ML VIAL As Ordered ONE; +NS 1,000 ML IV SCH; +ceFAZolin 2 GM/D5W 50 ML IV BAG As Ordered ONE; +fentaNYL 100 MCG/2 ML INJECTION As Ordered ONE
[2024-01-13 12:10] VITALS: TEMP 98.8
[2024-01-13] MEDS: ceFAZolin SOD 2 GM in IV 1 EA IV ONE (12:47)
[2024-01-13 13:40] VITALS: BP 133/67; O2SAT 97
== END ==
LOC: M IRPRO 11:58
PROVIDERS: ATTEND Specialist
DX: C34.90 Malignant neoplasm of unspecified part of unspecified bronchus or lung (principal)
CPT/HCPCS: 36561; 99152; C1894; J0690; J1642; J2250; J3010

== ENCOUNTER 2024-01-19 11:52 | Outpatient (RCR) | payer MEDICARE, OTHER ==
[~2024-01-19 11:52] MED LIST changes: -LIDOCAINE 1% MDV 20ML VIAL As Ordered ONE; -MIDAZOLAM INJ 2MG/2ML VIAL As Ordered ONE; -NS 1,000 ML IV SCH; -ceFAZolin 2 GM/D5W 50 ML IV BAG As Ordered ONE; -fentaNYL 100 MCG/2 ML INJECTION As Ordered ONE
== END 2024-01-20 ==
LOC: M ONCR 11:52
PROVIDERS: ATTEND General Practice
DX: Z51.0 Encounter for antineoplastic radiation therapy (principal); C34.32 Malignant neoplasm of lower lobe, left bronchus or lung

== ENCOUNTER → 2024-02-15 | Outpatient (CLI) | payer MEDICARE, OTHER ==
[~2024-02-15] MED LIST changes: +MEDR4PAK PO; +PRED20TA
== END ==
LOC: M RAD 12:05
PROVIDERS: ATTEND General Practice
DX: C34.32 Malignant neoplasm of lower lobe, left bronchus or lung (principal)

== ENCOUNTER 2024-02-16 11:30 | Outpatient (RCR) | payer MEDICARE, OTHER ==
[2024-02-21] MEDS ORDERED: LACT20EL PO (12:07)
== END 2024-02-19 ==
LOC: M ONCR 11:30
PROVIDERS: ATTEND General Practice
DX: Z51.0 Encounter for antineoplastic radiation therapy (principal); C34.32 Malignant neoplasm of lower lobe, left bronchus or lung

== ENCOUNTER 2024-03-16 10:22 | Outpatient (RCR) | payer MEDICARE, OTHER ==
[~2024-03-16 10:22] MED LIST changes: +LACT20EL PO
== END 2024-03-21 ==
LOC: M ONCR 10:22
PROVIDERS: ATTEND General Practice
DX: Z51.0 Encounter for antineoplastic radiation therapy (principal); C34.32 Malignant neoplasm of lower lobe, left bronchus or lung

== ENCOUNTER → 2024-03-27 | Outpatient (CLI) | payer MEDICARE, OTHER ==
[~2024-03-27] MED LIST changes: +ISOVUE-370 76% 100ML VIAL As Ordered ONE
== END ==
LOC: M RAD 13:54
PROVIDERS: ATTEND Specialist
DX: C34.90 Malignant neoplasm of unspecified part of unspecified bronchus or lung (principal)
CPT/HCPCS: 71260; Q9967

== ENCOUNTER → 2024-06-08 | Outpatient (REF) | payer MEDICARE, OTHER ==
[~2024-06-08] MED LIST changes: -ISOVUE-370 76% 100ML VIAL As Ordered ONE
[2024-06-08 18:55] LABS: ALKALINE PHOSPHATASE 169 U/L (35-104); ALT/SGPT 19 U/L (7.0-40); AST/SGOT 19 U/L (<34); BILIRUBIN,TOTAL 0.4 MG/DL (0.3-1.2); BLOOD UREA NITROGEN 20 MG/DL (9-23); CALCIUM LEVEL 9.7 MG/DL (8.3-10.6); CARBON DIOXIDE LEVEL 30 MMOL/L (20-31); CHLORIDE LEVEL 101 MMOL/L (98-107); CHOLESTEROL LEVEL 166 MG/DL (<200); CHOLESTEROL RISK RATIO 2.93 (<5); CREATININE FOR GFR 0.84 MG/DL (0.55-1.30); GLOMERULAR FILTRATION RATE > 60.0 (>32); GLUCOSE, FASTING 87 MG/DL (74-106); HDL CHOLESTEROL 56.6 MG/DL (>40); LDL CHOLESTEROL 89.2 MG/DL (<100); NON-HDL-C 109.4 MG/DL; POTASSIUM SERUM 4.7 MMOL/L (3.5-5.1); SODIUM LEVEL 139 MMOL/L (136-145); TOTAL PROTEIN 6.5 G/DL (5.7-8.2); TRIGLYCERIDES LEVEL 101 MG/DL (<150)
[2024-06-08 18:56] LABS: FREE T4 1.27 NG/DL (0.89-1.76); THYROID STIMULATING HORMONE 0.433 uIU/ML (0.55-4.78)
[2024-06-08 19:09] LABS: HEMOGLOBIN A1c 5.4 % (4.0-6.0)
== END ==
LOC: M SFHCADAM 15:04
PROVIDERS: ATTEND Family Medicine
DX: E03.9 Hypothyroidism, unspecified (principal); E78.5 Hyperlipidemia, unspecified; I11.9 Hypertensive heart disease without heart failure; Z13.1 Encounter for screening for diabetes mellitus

== ENCOUNTER → 2024-07-26 | Outpatient (CLI) | payer MEDICARE, OTHER ==
[~2024-07-26] MED LIST changes: +ISOVUE-370 76% 100ML VIAL ONE; +TRAM1TAB42 PO
== END ==
LOC: M PLAIMG 11:53
PROVIDERS: ATTEND Nurse Practitioner Women's Health
DX: C34.32 Malignant neoplasm of lower lobe, left bronchus or lung (principal)
CPT/HCPCS: 71260; Q9967

== ENCOUNTER → 2024-10-20 | Outpatient (CLI) | payer MEDICARE, OTHER ==
[~2024-10-20] MED LIST changes: +ISOVUE-370 76% 100 ML VIAL As Ordered ONE; -ISOVUE-370 76% 100ML VIAL ONE
== END ==
LOC: M RAD 11:01
PROVIDERS: ATTEND Specialist
DX: C34.90 Malignant neoplasm of unspecified part of unspecified bronchus or lung (principal)
CPT/HCPCS: 71260; Q9967

== ENCOUNTER → 2024-12-19 | Outpatient (REF) | payer MEDICARE, OTHER ==
[~2024-12-19] MED LIST changes: -ISOVUE-370 76% 100 ML VIAL As Ordered ONE
[2024-12-19 18:46] LABS: PLATELET COUNT, AUTOMATED 332 10^3/uL (150-450)
[2024-12-19 18:52] LABS: ESTIMATED AVERAGE GLUCOSE 108.0 MG/DL (60-110)
[2024-12-19 19:07] LABS: ALT/SGPT 16.0 U/L (7.0-40); AST/SGOT 20.0 U/L (<34); CALCIUM LEVEL 9.0 MG/DL (8.3-10.6); CARBON DIOXIDE LEVEL 29.0 MMOL/L (20-31); CHLORIDE LEVEL 102.0 MMOL/L (98-107); CHOLESTEROL LEVEL 146.0 MG/DL (<200); CHOLESTEROL RISK RATIO 2.53 (<5); CREATININE FOR GFR 1.01 MG/DL (0.55-1.30); GLOMERULAR FILTRATION RATE 55.2 (>32); LDL CHOLESTEROL 66.5 MG/DL (<100); NON-HDL-C 88.5 MG/DL; POTASSIUM SERUM 4.2 MMOL/L (3.5-5.1); SODIUM LEVEL 137.0 MMOL/L (136-145); TRIGLYCERIDES LEVEL 110.0 MG/DL (<150)
[2024-12-19 19:12] LABS: FREE T4 1.05 NG/DL (0.89-1.76)
== END ==
LOC: M SFHCADAM 14:17
PROVIDERS: ATTEND Family Medicine
DX: C78.02 Secondary malignant neoplasm of left lung (principal); I11.9 Hypertensive heart disease without heart failure; E03.9 Hypothyroidism, unspecified; Z13.1 Encounter for screening for diabetes mellitus; E78.5 Hyperlipidemia, unspecified

== ENCOUNTER → 2024-12-19 | Outpatient (CLI) | payer MEDICARE, OTHER | LOC: M ADAMS 14:34 | PROVIDERS: ATTEND Family Medicine | DX: M51.34 Other intervertebral disc degeneration, thoracic region (principal) ==

== ENCOUNTER → 2025-01-18 | Outpatient (CLI) | payer MEDICARE, OTHER ==
[~2025-01-18] MED LIST changes: +ISOVUE-370 76% 100 ML VIAL As Ordered ONE
== END ==
LOC: M RAD 12:52
PROVIDERS: ATTEND Specialist
DX: C34.92 Malignant neoplasm of unspecified part of left bronchus or lung (principal); R29.890 Loss of height
CPT/HCPCS: 71260; Q9967

== ENCOUNTER → 2025-02-21 | Outpatient (POV) | payer MEDICARE, OTHER ==
[~2025-02-21] MED LIST changes: -ISOVUE-370 76% 100 ML VIAL As Ordered ONE; +LEVO25TA5 PO; +LEVO75TA4; +LIDO1ADH93 TOP; +LIDO1PAD TOP; +METO1TAB32 PO; +OSEL30CA PO; +ROLLMIS8 XX; -SULF400T14 PO; +SULF400T15 PO; +SYNT25TA PO; +TRAM50TA2 PO
== END ==
LOC: M IRPOV 10:00
PROVIDERS: ATTEND Radiology Diagnostic Radiology
DX: M48.54XA Collapsed vertebra, not elsewhere classified, thoracic region, initial encounter for fracture (principal); M85.851 Other specified disorders of bone density and structure, right thigh; M85.852 Other specified disorders of bone density and structure, left thigh; Z82.49 Family history of ischemic heart disease and other diseases of the circulatory system; Z87.891 Personal history of nicotine dependence; Z79.891 Long term (current) use of opiate analgesic; Z79.899 Other long term (current) drug therapy; Z88.0 Allergy status to penicillin; Z88.1 Allergy status to other antibiotic agents; Z88.2 Allergy status to sulfonamides; Z88.6 Allergy status to analgesic agent

== ENCOUNTER 2025-03-17 09:32 | Emergency (ER) | payer MEDICARE, OTHER ==
[~2025-03-17] VITALS: Ht 152.4 cm; Wt 50.9 kg
[~2025-03-17 09:32] MED LIST changes: -LEVO75TA4; -LIDO1ADH93 TOP; -LIDO1PAD TOP; -METO1TAB32 PO; -OSEL30CA PO; -ROLLMIS8 XX; -SYNT25TA PO; -TRAM50TA2 PO
[2025-03-17 09:35] VITALS: BP 124/60; TEMP 97.9; O2SAT 97
[2025-03-17] MEDS ORDERED: ALBU8.5H INH (11:46)
[2025-03-17] MEDS ORDERED: TRAM50TA2 PO (11:46)
[2025-03-17] MEDS ORDERED: LIDO1ADH93 TOP (12:00)
[2025-03-17] MEDS: LIDOCAINE 5% PATCH TD ONE (12:14)
[2025-03-17] MEDS ORDERED: ROLLMIS8 XX (12:55)
== END 2025-03-17 13:06 | disposition home or self-care (01) ==
LOC: M ED 09:32
DX: M25.561 Pain in right knee (principal); M11.261 Other chondrocalcinosis, right knee; E03.9 Hypothyroidism, unspecified; I10 Essential (primary) hypertension; E78.5 Hyperlipidemia, unspecified; J45.909 Unspecified asthma, uncomplicated; K21.9 Gastro-esophageal reflux disease without esophagitis; J44.9 Chronic obstructive pulmonary disease, unspecified; C34.90 Malignant neoplasm of unspecified part of unspecified bronchus or lung; Z86.73 Personal history of transient ischemic attack (TIA), and cerebral infarction without residual deficits; Z88.0 Allergy status to penicillin; Z88.1 Allergy status to other antibiotic agents; Z88.2 Allergy status to sulfonamides; Z88.8 Allergy status to other drugs, medicaments and biological substances; Z79.51 Long term (current) use of inhaled steroids; Z79.1 Long term (current) use of non-steroidal anti-inflammatories (NSAID); Z79.899 Other long term (current) drug therapy